=== PATIENT | male | born 1955 | race Caucasian/White ===

== ENCOUNTER 2019-10-06 05:13 | Observation (INO) | payer BC, OTHER ==
[2019-10-01 12:32] LABS: BASOPHILS % 0.7 % (0.0-1.0); EOSINOPHILS # (AUTO) 0.2 (0.0-0.4); EOSINOPHILS % 2.8 % (0.0-6.0); HEMOGLOBIN 15.3 g/dL (14.0-18.0); LYMPHOCYTES # (AUTO) 1.3 (1.0-3.2); LYMPHOCYTES % 20.6 % (18.0-39.1); MEAN CORPUSCULAR HEMOGLOBIN 31.9 pg (28-32); MEAN CORPUSCULAR HGB CONC 33.3 g/dL (31-35); MONOCYTES # (AUTO) 0.5 (0.2-0.8); MONOCYTES % 8.6 % (4.4-11.3); NEUTROPHILS # (AUTO) 4.1 (2.1-6.9); NEUTROPHILS % 67.1 % (38.7-80.0); PLATELET COUNT 250 x10e3/uL (140-360); RED BLOOD COUNT 4.79 x10e6/uL (4.3-5.7)
[2019-10-01 12:45] LABS: INR 0.86; PROTHROMBIN TIME 12.2 seconds (11.9-14.5)
[2019-10-01 12:46] LABS: PARTIAL THROMBOPLASTIN TIME 28.4 seconds (23.8-35.5)
[2019-10-01 12:52] LABS: ANION GAP 12.1 mmol/L (8-16); BLOOD UREA NITROGEN 14 mg/dL (7-26); BUN/CREATININE RATIO 15 (6-25); CALCIUM 9.4 mg/dL (8.4-10.2); CARBON DIOXIDE 27 mmol/L (22-29); CHLORIDE 105 mmol/L (98-107); CREATININE, SERUM 0.96 mg/dL (0.72-1.25); EST GLOMERULAR FILTRATION RATE > 60 ML/MIN (60-); GLUCOSE 97 mg/dL (74-118); POTASSIUM 4.1 mmol/L (3.5-5.1); SODIUM 140 mmol/L (136-145)
[~2019-10-06] VITALS: Ht 185.4 cm; Wt 75.3 kg
[~2019-10-06 05:13] MED LIST: BACITRACIN 50,000 UNIT VIAL ONE; BC POWDER PACK1 EAC1 PO; IRBESARTAN-HCT1 EACH PO; MELOXICAM15 MG PO; PROTONIX20 MG PO
[2019-10-06] MEDS ORDERED: CEFAZOLIN SOD 1 GM/NS 50ML 100 ML IV ONE ×2 (06:07→20:34)
[2019-10-06] MEDS ORDERED: ROPIVACAINE 246.25 MG, EPINEPHRINE HCL 1:1000 1ML 0.5 MG, CLONIDINE HCL 0.08 MG, KETORO... INJ ONE ×5 (08:00)
[2019-10-06] MEDS ORDERED: TRANEXAMIC ACID 1,000 MG/10 ML ML ONE (08:42)
--- NOTE | 2019-10-06 09:25 | Diagnostic Imaging Report ---
OR Fluoroscopy: IMPRESSION: Fluoroscopy service provided in the OR. Interpretation not requested. Signed by: Rigoberto Ramos MD on 10/06/2019 9:22 AM
[2019-10-06] MEDS ORDERED: FENTANYL CITRATE/PF 100MCG/2 ML INJ ONE (09:36)
[2019-10-06] MEDS ORDERED: MORPHINE SULFATE 2 MG/ML SYR 1ML ONE (09:59)
[2019-10-06] MEDS ORDERED: KETOROLAC TROMETHAMINE 30 MG/ML VIAL ONE ×2 (10:00→14:24)
[2019-10-06] MEDS ORDERED: HYDROCODONE/APAP 5MG-325MG TAB ONE ×2 (12:24→15:30)
[2019-10-06] MEDS ORDERED: ROCURONIUM BROMIDE 10 MG/ML 5ML VIAL IV ONE (14:24)
[2019-10-06] MEDS ORDERED: SEVOFLURANE INHAL SOLN 250 ML PEN BTL ONE (14:24)
[2019-10-06] MEDS ORDERED: GLYCOPYRROLATE INJ 0.2 MG/ML VIAL ONE (14:24)
[2019-10-06] MEDS ORDERED: ONDANSETRON HCL INJ 2MG/ML 2ML 2 MG/ML VIAL ONE (14:24)
[2019-10-06] MEDS ORDERED: LIDOCAINE HCL 2% LOCAL INJ 5 ML SDV VIAL INJ ONE (14:24)
[2019-10-06] MEDS ORDERED: PROPOFOL IV EMULSION 10 MG/ML 20 ML VIAL ONE (14:24)
[2019-10-06] MEDS ORDERED: NEOSTIGMINE 1 MG/ML 10ML VIAL ONE (14:24)
[2019-10-06] MEDS ORDERED: DEXAMETHASONE SOD PHOS INJ 4 MG/ML VIAL ONE (14:24)
--- NOTE | 2019-10-06 16:10 | Operative Report ---
DATE OF PROCEDURE: 10/06/2019 SURGEON: DEYA HERRERA MD LOCATION: Place of surgery is [facility]. HISTORY: Mr. Lawton is a 63-year-old male with a several year history of chronic left-sided hip pain. On initial evaluation, the patient was found to have severe end-stage degenerative joint disease of his left hip with a possibility of avascular necrosis of the left femoral head. In addition to his hip pain, the patient was also having referred lumbar radicular pain to the left lower extremity. The patient had tried conservative treatments for his left hip as well as his back to include anti-inflammatories, home therapy program, referral to pain management for URIEL and hip injections. The patient has continued with ongoing pain to the left hip which was affecting his gait and quality of life. He elected to forgo any further conservative treatment and proceed along with a left total hip arthroplasty. The patient was made well aware of the risks and benefits consisting but not limited to the following: Infection, blood loss, nerve, blood vessel or tendon injury, DVT, ongoing pain, stiffness, leg length discrepancy. He is aware of the possibility of fractures and/or hip dislocations and possible need for additional surgery. Lastly, he is also made well aware that the hip arthroplasty in itself may not resolve all of his lumbar radicular symptoms and pain resulting from that. The patient was seen and identified in the preoperative holding area. The left hip was marked by myself. The risks and benefits as noted above were conveyed to the patient once again with preop nursing staff and the patient was in agreement. Time-out was taken. Consent was confirmed with the preop nursing staff, anesthesia staff and myself. The patient was then brought back to the operative suite and the time-out was taken in the operative suite for Mr. Driss Lawton for left total hip arthroplasty. All were in agreement including operative nursing staff, anesthesia and myself. The patient was then given a successful general intubation anesthetic and then transferred over to the operative surgical table. The patient was then placed in a right lateral decubitus position with the left hip fully exposed. An axillary roll was placed underneath the right axilla and the right lower extremity, the peroneal nerve was well protected and padded throughout the entire procedure. The left hip was then sterilely prepped and draped in usual standard fashion. The initial 10-metz Jacob blade was then used to make the initial skin incisions starting at the greater trochanter and extending up proximally and posteriorly and then distally along the lateral femoral shaft. Subcutaneous bleeding was controlled using Bovie tip. A second 10-metz Jacob blade was then used to make a second deep incision into the iliotibial band along with the skin incision. A Charnley east-west retractor was placed in and the gluteus medius and minimis were identified and they were resected off the region of bony insertion and tagged for later repair. Blunt dissection was carried across the femoral head, neck and capsule. A capsulectomy was completed. Degenerative joint fluid was suctioned out and the degenerative femoral head and neck was readily identified. The hip was then carefully dislocated en bloc. The complete femoral head was identified. He had the complete cartilage loss of almost 100% of the articular surface with significant osteophyte throughout the femoral neck. An osteotomy guide was then used in position to make a resection cut of the femoral neck of approximately 1 cm above the lesser trochanter. The femoral head was removed and the femoral head was sized to approximately 54. The acetabular retractors were then placed in to allow full visualization of the entire acetabulum throughout the reaming process. C-arm fluoroscopy was then brought in, so I can also identify the entire acetabulum and sequential reaming was carried out of the acetabulum and assuring correct version rotation and internal and external rotation during the reaming process with direct visualization and secondary confirmation was C-arm fluoroscopy. The acetabulum was reamed up to a size 60 and a 60G Trident II cluster cup was impacted in. Again, upon direct visualization as well as using alignment guides, the Trident II cluster cup was impacted in the correct version. Rotation, abduction, adduction, internal and external rotation, and final position was confirmed under light C- arm fluoroscopy. The acetabulum cup was then augmented with the acetabular screws 6.5 x 26.5 x 30 both being placed between the bony aspect of the pelvis. The cup was well seated and well positioned. A temporary liner was then placed in. FEMORAL COMPONENT: Attention was then turned to the femoral side. A cookie cutter was used to remove the lateral femoral cancellous bone. Canal finder was placed in and canal lateralizer was then used and sequential broaching was carried out to a Press-Fit size 10 stem. A trial reduction was carried out using varied neck length and the neutral gave the most stable neck length allowing full complete range of motion of the hip in all planes without any subluxation or dislocation. The trial components were removed. Copious irrigation was carried out with 6 L of antibiotic saline solution. First and second final counts were found to be correct. Upon which time, a hip VAN injection was completed with 100 mL of cocktail mixture in the usual standard fashion. The final components were placed in consisting of secure Press-Fit size 10 stem with 130 degrees neck angle. A MDM liner 48 G, insert was 28 mm x 54 mm, head size was 20 mm with 0 mm neutral neck length cobalt chrome. Upon reduction of final components, the hip was placed in range of motion and upon direct visualization as well as live C- arm fluoroscopy the hip was stable in all planes and motion. There is no hip subluxation or dislocation and stable throughout. Final irrigation was carried out and final counts were found to be correct. Deep layer closure, we began reapproximating the gluteus medius and minimus, reinserting it back to the bony insertion to bony tunnels. The iliotibial was closed using 5-0 Ethibond and 0 Vicryl. The deep fascial layer was closed using 0 Vicryl and 2-0 Vicryl and skin reapproximated with marisol. The patient was then placed in the hip abduction pillow and then successfully extubated and transferred to PACU in stable condition. PREOPERATIVE DIAGNOSIS: Severe end-stable degenerative joint disease of the left hip. POSTOPERATIVE DIAGNOSES: Severe end-stable degenerative joint disease of the left hip and based on intraoperative finding high probability of avascular necrosis of the left femoral head. PROCEDURE: Left total hip arthroplasty with the following components: Trident II cluster cup size 60G, two acetabulum screws 6.5 x 20 and 6.5 x 30 mm, MDM liner was 48 mm G, insert was 28 mm x 54 mm, head size was 28 mm x 0 mm, 0 neutral neck length cobalt chrome. Left intraarticular intracapsular hip van injection. ANESTHESIA: General intubation. COMPLICATIONS: None. CONDITION: Stable to PACU. Intraoperative findings were severe degenerative joint disease of the left hip with complete articular cartilage loss of the femoral head and 80% of the acetabulum. The patient is seen in PACU. Dressing is clean and dry. Capillary refills are brisk. The patient's hip was out to length and neutral. Capillary refills are brisk. He was moving his toes. Pain is well controlled. I did try to locate his but his was not available in two waiting rooms that I checked twice. The postoperative instructions were discussed with the nursing staff. The patient is discharged on Lovenox 40 mg subcu daily beginning tomorrow morning. Dressing changes. The patient discharged home with abduction pillow, bilateral teds and incentive spirometry. The patient may shower, does not need to cover the incision about 2 to 3 days. The patient is to follow in orthopedic clinic in 2 weeks for wound check and staple removals. MD VINICIUS REEVES/SUHAS /[id number] JOSE M
[2019-10-06] MEDS ORDERED: HYDROCODONE/APAP 10MG-325MG TAB ONE (21:07)
[2019-10-06] MEDS ORDERED: CEFAZOLIN SOD 1 GM/NS 50ML 50 ML IV ONE (21:38)
[2019-10-06 21:45] VITALS: BP 120/70
[2019-10-06 22:30] VITALS: BP 120/70
--- NOTE | 2019-10-06 22:30 | NUR ---
RECEIVED TRANSFER FROM PACU. PT IS ALERT AND ORIENTED X3. RESPIRATIONS ARE REGULAR AND UNLABORED. TELE ON - SR. DRESSING TO LEFT HIP IS DRY AND INTACT. ABDUCTOR PILLOW IN PLACE. APRIL HOSE AND SCD ON BILATERALLY. PT UNABLE TO VOID AFTER SURGERY. RTAC PIV - LR AT 80 ML/HR. SITE HEALTHY. CALL LIGHT WITHIN REACH. BED IN LOW POSITION.
[2019-10-06] MEDS: LACTATED RINGER'S 1,000 ML INJ SCH (22:45)
[2019-10-06] MEDS ORDERED: HYDROMORPHONE 1MG/1ML INJ IV PRN (22:45)
[2019-10-06] MEDS ORDERED: HYDROCODONE/APAP 10MG-325MG TAB PO PRN (22:45)
[2019-10-06] MEDS ORDERED: NICOTINE 21 MG/EA PATCH TOP PRN (22:45)
[2019-10-07] VITALS: BP 116/70
[2019-10-07] MEDS: HYDROCODONE/APAP 10MG-325MG TAB PO PRN ×3 (01:13→10:47)
--- NOTE | 2019-10-07 03:31 | NUR ---
PT HAS VOIDED 100 AND 275 OF URINE. URINE IS CLEAR YELLOW IN COLOR.WILL CONTINUE TO MONITOR.
[2019-10-07 04:00] VITALS: BP 116/60
[2019-10-07] MEDS: CEFAZOLIN SOD 1 GM/NS 50ML 50 ML IV SCH ×2 (05:54→14:00)
[2019-10-07] MEDS ORDERED: ENOXAPARIN SOD INJ 40 MG/0.4 ML SYR SC SCH (07:00)
[2019-10-07 07:48] VITALS: BP 103/68
[2019-10-07] MEDS ORDERED: PANTOPRAZOLE SOD 40 MG TABEC PO SCH (08:00)
[2019-10-07 08:25] VITALS: BP 103/68
[2019-10-07] MEDS: LACTATED RINGER'S 1,000 ML INJ SCH (11:15)
[2019-10-07] MEDS ORDERED: NORCO 10-325 T1 EACH PO (11:31)
[2019-10-07] MEDS ORDERED: LOVENOX40 MG/0.4 SC (11:32)
[2019-10-07] MEDS ORDERED: KEFLEX500 MG PO (11:36)
[2019-10-07 12:11] VITALS: BP 118/73
--- OUTSIDE RECORDS SUMMARY | 2019-10-16 14:38 | XMS REPORT | Clinical Summary ---
Author Author [facility] Organization [facility] Address Unknown Phone Unavailable Care Team Providers Care Manager Summer Name Role Phone Jh Reece MD PCP Allergies Not on File Medications End Date Status Medication Sig Dispensed Refills Start Date Active sodium,potassium,mag Use as 2 Bottle 0 01/01 sulfates (SUPREP BOWEL directed 8 PREP KIT) 17.5-3.13-1.6 gram recon soln Active pantoprazole (PROTONIX) Take 1 tablet 90 tablet 2 40 MG EC tablet (40 mg total) 0 by mouth daily. 10/27/2018 Discontinued (Reorder) esomeprazole (NexIUM) 40 TAKE 1 90 capsule 1 0 MG capsule CAPSULE DAILY 9 BEFORE BREAKFAST 05/06/2019 Discontinued esomeprazole (NexIUM) 40 TAKE 1 90 capsule 1 0 201 MG capsule CAPSULE DAILY 9 BEFORE BREAKFAST 08/18/2019 Discontinued (Reorder) esomeprazole (NexIUM) 40 TAKE 1 90 capsule 4 0 MG capsule CAPSULE DAILY 0 BEFORE BREAKFAST 08/20/2019 Discontinued (Reorder) esomeprazole (NexIUM) 40 TAKE 1 90 capsule 1 0 MG capsule CAPSULE DAILY 0 BEFORE BREAKFAST 09/04/2019 Discontinued esomeprazole (NexIUM) 40 TAKE 1 90 capsule 1 0 202 MG capsule CAPSULE DAILY 0 BEFORE BREAKFAST Active Problems Not on file Encounters Care Team Description Date Type Specialty Makayla Reynoso MA 09/04/2019 Telephone Gastroenterology Makayla Reynoso MA 08/26/2019 Telephone Gastroenterology Makayla Reynoso MA 08/20/2019 Orders Only Gastroenterology Makayla Reynoso MA 08/18/2019 Telephone Gastroenterology Emmanuel Marsh MD 05/05/2019 Refill Gastroenterology Emmanuel Marsh MD 10/27/2018 Refill Gastroenterology after 10/05/2018 Social History Date Tobacco Use Types Packs/Day Years Used Never Assessed Sex Assigned at Date Recorded Not on file Industry Job Start Date Occupation Not on file Not on file Not on file Travel End Travel History Travel Start No recent travel history available. 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
--- OUTSIDE RECORDS SUMMARY | 2019-10-16 14:38 | XMS REPORT | Continuity of Care Document ---
Author Author Suhail Howard [employer]B [employer] MAHSA Townsend Organization [employer] Address Unknown Phone Unavailable Care Team Providers Care Director Voice Name Role Phone [facility] Unavailable Un available Problems Problem Status Onset Date Classification Date Reported Comments Source LT THR:10/06/19 Active 2019 [facility] CERVICAL SPONDYLOSIS, CERVICAL SPINAL ST Active 08/17/2016 [facility] UNK Active 0 07/12/2016 [facility] M54.12 - "RADICULOPATHY, CERVICAL REGION Active 06/11/2016 BOAZ Harviell Non-neoplastic nevus (disorder) Active 12/05/2013 Problem 09/20/2019 Data migrated from [employer] on 08/14. Medical GroupKarl, Constantino ast, BOAZ Gerberland,[facility] NEVUS, NON-NEOPLASTIC Active 12/05/2013 Condition 10/27/2014 Medical Group Hereditary hemochromatosis (disorder) Active 03/18/1958 Problem 09/20/2019 Data migrated from [employer] on 08/14. Medical GroupKarl, Southe ast, [facility] HEREDITARY HEMOCHROMATOSIS Act rio 03/18/1958 Condition 10/27/2014 Medical Group Arthritis (disorder) Active Problem 09/20/2019 Data migrated from [employer] on 08/14/14. Medical GroupKarl Neuro,[facility], BOAZ Gerberland,[facility] Lockwood's esophagus (disorder) Resolved Problem 07/2019 Data migrated from [employer] on 08/14. Medical GroupKarl Neuro, Southe ast, GUILLERMINAD [facility] Benign hypertension (disorder) Resolved Problem 07/2019 Data migrated from [employer] on 08/14. Medical GroupKarl, Constantino ast, BOAZ Barrios,[facility] Gastroesophageal reflux disease (disorder) Active Problem 09/20/2019 Data migrated from [facility] on 08/14. Medical Group,Karl Neuro, Constantino ast, OPID Harviell,[facility] History of - blood disorder (context-dep endent category) Resolved Pr oblem 09/20/2019 Data migrated from [facility] on 10/02/14. Medical Group,Karl Neuro, Constantino ast, OPID Harviell,[facility] Hypertensive disorder, systemic arterial (disorder) Active Problem 09/20/2019 Medical Group,Karl Neuro, [place], OPID Harviell,[facility] Lactocele (disorder) Active Problem 09/20/2019 Medical Group,Karl Russell ro, [place], OPID Harviell,[facility] Smoker (finding) Active Problem 09/20/2019 Medical GroupKarl ro, [place], OPID Harviell,[facility] Spinal stenosis in cervical region (disorder) Active Problem 09/20/2019 Medical Group,Karl Neuro, [place], OPID Harviell,[facility] HTN Active Condition 10/27/2014 Medical Group GERD Active Condition 10/27/2014 Medical Group BARRETTS ESOPHAGUS Active Condition 10/27/2014 Medical Group ARTHRITIS Active Condition 10/27/2014 Medical Group SPINAL STENOSIS, CERVICAL REGION Active [facility] Medications Medication Details Route Status Patient Instructions Ordering Provider Order Date Source pantoprazole 40 mg oral enteric coated tablet 0 Refill(s) Active 09/14/2019 Medical Group Esomeprazole 40 MG Enteric Coated Capsule [Nexium] 40 mg = 1 cap, PO, Daily, # 90 cap, 1 Refill(s), Pharmacy: [facility][id number] Active 08/11/2019 Medical Group Hydrochlorothiazide 12.5 MG / irbesartan 150 MG Oral Tablet 1 tab, PO, Daily, DUE FOR APPOINTMENT., # 90 tab, 1 Refill(s), Pharmacy: [facility] #[id number] Active 08/11/2019 [facility] Hydrochlorothiazide 12.5 MG / irbesartan 150 MG Oral Tablet = 1 tab, PO, Daily, # 90 tab, DUE FOR AP POINTMENT., Pharmacy: [facility] Active 02/05/2019 Medical Group Hydrochlorothiazide 12.5 MG / irbesartan 150 MG Oral Tablet = 1 tab, PO, Daily, # 90 tab, Refill(s) 1, Pharmacy: [facility] Active 02/07/2018 Medical Group Hydrochlorothiazide 12.5 MG / irbesartan 150 MG Oral Tablet See Instructions, # 90 tab, TAKE 1 TABLE T DAILY, Pharmacy: [facility] No Longer Active 11/08/2017 Medical Group Hydrochlorothiazide 12.5 MG / irbesartan 150 MG Oral Tablet See Instructions, # 90 tab, Refill(s) 1, TAKE 1 TABLET DAILY, Pharmacy: [facility] Active 05/13/2017 Medical Group Hydrochlorothiazide 12.5 MG / irbesartan 150 MG Oral Tablet See Instructions, # 90 tab, TAKE 1 TABLE T DAILY, Pharmacy: [facility] Active 02/11/2017 Medical Group remove patch Notes: Remove old patch before application of new patch. WASTE: F/P - P Waste Black; E - P Waste Black Inactive 08/02/2016 [facility] hydrochlorothiazide 25 mg oral tablet Notes: (Same as: Hydrodiuril) With food. Inactive 08/02/2016 [facility] Senokot Notes: (Same as: Senok ot) Inactive 08/02/2016 [facility] Avapro Notes: (Same as:Avapro) Inactive 08/02/2016 [facility] Hydrochlorothiazide 12.5 MG / irbesartan 150 MG Oral Tablet [Avalide 150/12.5] 1 tab, Route: PO, Drug Form: TAB, Dosing Weight 76.364, kg, Daily, Start date: 08/02/16 9:00:00 CDT, Duration: 30 day, Stop date: 08/31/16 9:00:00 CDT No Longer Active 08/02/2016 [facility] heparin sodium, porcine 2500 UNT/ML Injectable Solutio n Notes: porcine heparin Inactiv e 08/02/2016 [facility] 24 HR Nicotine 0.875 MG/HR Transdermal P atch [Nicoderm C-Q] = 1 patch, TOP, Daily, X 28 day, # 28 pa tch, 0 Refill(s) Active 08/02/2016 [facility] Acetaminophen 325 MG / Hydrocodone Annabelle trate 10 MG Oral Tablet [[place] 10/325] 1 tab, PO, Q4H, PRN Pain Score 1-3, # 60 tab, 0 Refill(s), given to patient Active 08/02/2016 [facility] Acetaminophen 325 MG / Hydrocodone Annabelle trate 10 MG Oral Tablet [[place] 10/325] Notes: Do not exceed 4gm/day of acetamin ophen. (Same as: [place] 325/10) Inactive 08/02/2016 [facility] Famotidine 20 MG Oral Tablet [Pepcid] Notes: (Same as: Pepcid) No Longer Active 08/02/2016 [facility] Nicotine Notes: (Same as: Bryce mello) "Remove old patch before application of new patch" WASTE: F/P - P Waste Black; E - P Waste Black No Longer Active 08/01/2016 [facility] Docusate Sodium 100 MG Oral Capsule [Colace] Notes: (Same as: Colace) (Do Not Crush) No Longer Active 08/01/2016 [facility] Cefazolin 1 gm, 100 mL, Route: IVPB, Drug form: INJ, Q8H, Dosing Weight 76.364, kg, Start date: 08/01/16 16:00:00 CDT, Duration: 3 doses or times, Stop date: 08/02/16 8:00:00 CDT No Longer Active 08/01/2016 [facility] Fentanyl 50 microgram, Route: IVP, ONCE, Dosing Weight 76.364, kg, Start date: 08/01/16 11:48:00 CDT, Stop date: 08/01/16 11:48:00 CDT Inactive 08/01/2016 [facility] Ondansetron 4 mg, Route: IVP, ONCE, Dosing Weight 76.364, kg, PRN Nausea & Vomiting, Start date: 08/01/16 11:25:00 CDT Inactive 08/01/2016 [facility] Morphine 2 mg, Route: IVP, Q5M in, Dosing Weight 76.364, kg, PRN Pain Score 4-6, Start date: 08/01/16 11:25:00 CDT, Duration: 5 doses or times, Stop date: Limited # of times Inactive 08/01/2016 [facility] Naloxone 0.4 mg, Route: IVP, Q 2MIN, Dosing Weight 76.364, kg, PRN Narcotic Reversal, Start date: 08/01/16 11:25:00 CDT, Duration: 8 doses or times, Stop date: Limited # of times Inactive 08/01/2016 [facility] Hydralazine 10 mg, Route: IVP, Q20Min, Dosing Weight 76.364, kg, PRN Elevated BP, Start date: 08/01/16 11:25:00 CDT, Duration: 2 doses or times, Stop date: Limited # of times Inactive 08/01/2016 [facility] Labetalol 10 mg, Route: IVP, Q 5Min, Dosing Weight 76.364, kg, PRN Elevated BP, Start date: 08/01/16 11:25:00 CDT, Duration: 5 doses or times, Stop date: Limited # of times Inactive 08/01/2016 [facility] Flumazenil 0.2 mg, Route: IVP, PRN, Dosing Weight 76.364, kg, PRN Benzodiazepine Reversal, Initial dose, Start date: 08/01/16 11:25:00 CDT, Duration: 30 day, Stop date: 08/31/16 11:24:00 CDT Inactive 08/01/2016 [facility] Hydromorphone 0.5 mg, Route: I SUPERVISOR RESIDENTIAL, Q5Min, Dosing Weight 76.364, kg, PRN Pain Score 7-10, Start date: 08/01/16 11:25:00 CDT, Duration: 4 doses or times, Stop date: Limited # of times Inactive 08/01/2016 [facility] magnesium citrate Notes: (Same as: Citrate of Magnesia) Concentration: 1.745 gm / 30 mL No Longer Active 08/01/2016 [facility] Zofran Notes: (Same as: Zofran ) MEDICATION WASTE Product Size: 4 mg Product Wasted: ___ mg No Longer Active 08/01/2016 [facility] Acetaminophen 325 MG / Hydrocodone Annabelle trate 5 MG Oral Tablet Notes: (Same as: [place] 325/5) Do not ex ceed 4gm/day of acetaminophen. No Longer Active 08/01/2016 [facility] Dilaudid 1 mg, 1 mL, Route: IV , Drug form: INJ, Q3H, Dosing Weight 76.364, kg, PRN Pain Score 7-10, Start date: 08/01/16 11:14:00 CDT, Duration: 30 day, Stop date: 08/31/16 11:13:00 CDT No Longer Active 08/01/2016 [facility] Tylenol Notes: Do not exceed 4 gm/day. (Same as: Tylenol) No Longer Active 08/01/2016 [facility] Sodium Chloride 0.154 MEQ/ML Injectable Solution 1,000 mL, Rate: 75 ml/hr, Infuse over: 13.3 hr, Route: IV, Dosing Weight 76.364 kg, Total Volume: 1,000, Start date: 08/01/16 11:14:00 CDT, Duration: 30 day, Stop date: 08/31/16 11:13:00 CDT No Longer Active 08/01/2016 [facility] rocuronium (ANES) Route: IV, D rug form: INJ, ONCE, Stop date: 08/01/16 8:46:00 CDT Inactive 08/01/2016 [facility] propofol (ANES) Route: IV, Antolin g form: INJ, ONCE, Stop date: 08/01/16 8:46:00 CDT Inactive 08/01/2016 [facility] ePHEDrine (ANES) Route: IV, Dr ug form: INJ, ONCE, Stop date: 08/01/16 8:46:00 CDT Inactive 08/01/2016 [facility] midazolam (ANES) Route: IV, Dr ug form: SOLN, ONCE, Stop date: 08/01/16 8:46:00 CDT Inactive 08/01/2016 [facility] ondansetron (ANES) Route: IV, Drug form: INJ, ONCE, Stop date: 08/01/16 8:46:00 CDT Inactive 08/01/2016 [facility] dexamethasone (ANES) Route: IV , Drug form: INJ, ONCE, Stop date: 08/01/16 8:46:00 CDT Inactive 08/01/2016 [facility] fentaNYL (ANES) Route: IV, Antolin g form: INJ, ONCE, Stop date: 08/01/16 8:46:00 CDT Inactive 08/01/2016 [facility] lidocaine (ANES) Route: IV, Dr ug form: INJ, ONCE, Stop date: 08/01/16 8:46:00 CDT Inactive 08/01/2016 [facility] acetaminophen (ANES) (ANES) [place]: IV, Drug form: INJ, Start date: 08/01/16 8:21:00 CDT, Stop date: 08/01/16 9:21:00 CDT Inactive 08/01/2016 [facility] ceFAZolin (ANES) (ANES) Route: IV, Drug form: INJ, Start date: 08/01/16 8:11:00 CDT, Stop date: 08/01/16 9:11:00 CDT Inactive 08/01/2016 [facility] Calcium Chloride 0.0014 MEQ/ML / Potassi um Chloride 0.004 MEQ/ML / Sodium Chloride 0.103 MEQ/ML / Sodium Lactate 0.028 MEQ/ML Injectable Solution 1,000 mL, Rate: 25 ml/hr, Infuse over: 4 0 hr, Route: IV, Dosing Weight 76.364 kg, Total Volume: 1,000, Start date: 08/01/16 7:41:00 CDT, Duration: 30 day, Stop date: 08/31/16 7:40:00 CDT Inactive 08/01/2016 [facility] LR 1000 mL INJ (ANES) Route: I V, Total Volume: 1,000, Start date: 08/01/16 7:39:00 CDT, Stop date: 08/01/16 8:39:00 CDT Inactive 08/01/2016 [facility] Esomeprazole 40 MG Enteric Coated Capsule [Nexium] 40 mg = 1 cap, PO, Daily, # 30 cap, 0 Refill(s) Active 07/25/2016 [facility] MOBIC 7.5 MG TABS Take one tab let by mouth once daily as needed Active 12/05/2013 [facility] NEXIUM 20 MG CPDR Take one tab let by mouth once daily as needed Active 12/05/2013 Medical [facility] BC FAST PAIN RELIEF 845-65 MG PACK Ingest one pack once daily as needed Active 12/05/2013 [facility] NEXIUM 20 MG CPDR Take one tab let by mouth once daily as needed Active 12/05/2013 [facility] AVALIDE 150-12.5 MG TABS Take 1 po daily Active 11/24/2012 [facility] AVALIDE 150-12.5 MG TABS Take 1 po daily Active 11/24/2012 Medical [facility] Allergies, Adverse Reactions, Alerts Substance Category Reaction Severity Reaction type Status Date Reported Comments Source angiotensin converting enzyme inhibitors<sup>1</sup> Assertion Drug allergy Active Data migrated from [employer] on 10/14. Originally documented as [facility] [employer]. [facility] [employer] Drug allergy [facility] [facility] Immunizations Immunization Date Given Site Status Last Updated Comments Source diphtheria/pertussis, acel/tetanus adult<sup>1</sup> 12/05/2013 Right Deltoid completed GE Result Comment: boostrix [[id number]]. Migrated from OBS ; Data migrated from [employer] on 04/19/2015. Medical Group,Count [facility] Hx influenza vaccine-unspecified<sup>2</sup> 01/02/2012 completed GE Result Comment: fluvax. Gigi rated from OBS ; Data migrated from [employer] on 04/19/2015. Medical Group,Karl [facility], BOAZ Harviell,[facility] influenza immunization (Flu Vax) has been administered 01/02/2012 completed [facility] influenza immunization (Flu Vax) has been administered 01/02/2012 completed [facility] dT (Diphtheria and Tetanus) booster given 09/12/2004 completed [facility] tetanus-diphtheria toxoids<sup>3</sup> 09/12/2004 completed G E Result Comment: td. Migrated from OBS ; Data migrated from [employer] on 04/19/2015. Medical Group,Karl Neuro,[facility] dT (Diphtheria and Tetanus) immunization for children, #1 09/12/2004 completed Medical [facility] Results Order Name Results Value Reference Range Date Interpretation Comments Source CHEM PANEL Glucose Lvl 88 65 - 99 09/14/2019 Result Comment:
Fasting reference interval

Lab test performed by:
[facility]
[address]
[place] [address]
Julio [facility] CHEM PANEL BUN 10 7 - 25 09/14/2019 [facility] CHEM PANEL Creatinine Lvl 0.76 0.70 - 1.25 09/14/2019 Result Comment: For patients >49 years o f age, the reference limit
for Creatinine is approximately 13% higher for people
identified as -[place]. Medical [facility] CHEM PANEL eGFR NON-AFR. LATVIAN 98 > OR = 60 mL/min/1.73m2 2019 [facility] CHEM PANEL eGFR 113 > OR = 60 mL/min/1.73m2 2019 [facility] CHEM PANEL B/C Ratio NOT A PPLICABLE 6 - 22 09/14/2019 [facility] CHEM PANEL Sodium Lvl 140 135 - 146 09/14/2019 [facility] CHEM PANEL Potassium Lvl 4.0 3.5 - 5.3 09/14/2019 [facility] CHEM PANEL Chloride Lvl 105 98 - 110 09/14/2019 [facility] CHEM PANEL CO2 26 20 - 32 09/14/2019 [facility] CHEM PANEL Calcium Lvl 9.5 8.6 - 10.3 09/14/2019 [facility] CHEM PANEL Total Protein 6.5 6.1 - 8.1 09/14/2019 [facility] CHEM PANEL Albumin Lvl 4.1 3.6 - 5.1 09/14/2019 [facility] CHEM PANEL Globulin 2.4 1.9 - 3.7 09/14/2019 [facility] CHEM PANEL A/G Ratio 1.7 1.0 - 2.5 09/14/2019 [facility] CHEM PANEL Bili Total 1.0 0.2 - 1.2 09/14/2019 [facility] CHEM PANEL Alk Phos 88 35 - 144 09/14/2019 [facility] CHEM PANEL ASPARTATE TRANSAMINASE 20 10 - 35 09/14/2019 [facility] CHEM PANEL ALANINE AMINOTRANSFERASE 16 9 - 46 09/14/2019 [facility] HEMATOLOGY WBC X 10x3 6.5 3.8 - 10.8 09/14/2019 Result Comment:
Lab test perf ormed by:
[facility]
[address]
[place] [address]
Julio Gaston [facility] HEMATOLOGY RBC X 10x6 4.70 4.20 - 5.80 09/14/2019 [facility] HEMATOLOGY Hgb 15.3 13.2 - 17.1 09/14/2019 [facility] HEMATOLOGY Hct 46.0 38.5 - 50.0 09/14/2019 [facility] HEMATOLOGY MCV 97.9 80.0 - 100.0 09/14/2019 [facility] HEMATOLOGY MCH 32.6 27.0 - 33.0 09/14/2019 [facility] HEMATOLOGY MCHC 33.3 32.0 - 36.0 09/14/2019 [facility] HEMATOLOGY RDW 11.9 11.0 - 15.0 09/14/2019 [facility] HEMATOLOGY Platelet 256 140 - 400 09/14/2019 [facility] HEMATOLOGY MPV 10.9 7.5 - 12.5 09/14/2019 [facility] HEMATOLOGY Neutrophils # 4446 1500 - 7800 09/14/2019 [facility] HEMATOLOGY Lymphocytes # 1417 850 - 3900 09/14/2019 [facility] HEMATOLOGY Monocytes # 488 200 - 950 09/14/2019 [facility] HEMATOLOGY Eosinophils # 130 15 - 500 09/14/2019 [facility] HEMATOLOGY Basophils # 20 0 - 200 09/14/2019 [facility] HEMATOLOGY Segs 68.4 09/14/2019 [facility] HEMATOLOGY Lymphocytes 21.8 09/14/2019 [facility] HEMATOLOGY Monocytes 7.5 09/14/2019 [facility] HEMATOLOGY Eosinophils 2.0 09/14/2019 [facility] HEMATOLOGY Basophils 0.3 09/14/2019 [facility] HEMATOLOGY INR 1.0 09/14/2019 Result Comment: Reference Range 0.9-1.1
Moderate-intensity Warfarin Therapy 2.0-3.0
Higher-intensity Warfarin Therapy 3.0-4.0

Lab test performed by:
[facility]
[address] [place] [address]
[place] [address]
Julio Gaston [facility] HEMATOLOGY PROTIME 9.9 9.0 - 11.5 09/14/2019 Result Comment:
For more informati on on this test, go to:
http://education.WhoJam/faq/EIV862 [facility] HEMATOLOGY aPTT 31 22 - 34 09/14/2019 Result Comment:
This test has not been validated for monitoring
unfractionated heparin therapy. For testing that
is validated for this type of therapy, please refer
to the Heparin Anti-Xa assay (test code 68028).

For additional information, please refer to
http://education.[employer]/faq/PRB629
(This link is being provided for
informational/educational purposes only.)

Lab test performed by:
[facility]
[address] [place] [address]
[place] [address]
Julio Gaston [facility] URINE AND STOOL UA Color YELLOW YELLOW 09/14/2019 Result Comment:
Lab test perf ormed by:
[facility]
[address] [place] [address]
[place] [address]
Julio aGston [facility] URINE AND STOOL UA Turbidity CLEAR CLEAR 09/14/2019 [facility] URINE AND STOOL UA Spec Grav 1.007 1.001 - 1.035 09/14/2019 [facility] URINE AND STOOL UA pH 6.5 5.0 - 8.0 09/14/2019 [facility] URINE AND STOOL UA Glucose NEGATIVE NEGATIVE 09/14/2019 [facility] URINE AND STOOL UA Bili NEGATIVE NEGATIVE 09/14/2019 [facility] URINE AND STOOL UA Ketones NEGATIVE NEGATIVE 09/14/2019 [facility] URINE AND STOOL UA Blood NEGATIVE NEGATIVE 09/14/2019 [facility] URINE AND STOOL UA Protein NEGATIVE NEGATIVE 09/14/2019 [facility] URINE AND STOOL UA Nitrite NEGATIVE NEGATIVE 09/14/2019 [facility] URINE AND STOOL UA Leuk Est NEGATIVE NEGATIVE 09/14/2019 [facility] URINE AND STOOL UA WBC NONE SEEN < OR = 5 09/14/2019 [facility] URINE AND STOOL UA RBC NONE SEEN < OR = 2 09/14/2019 [facility] URINE AND STOOL UA Sq Epi NONE SEEN < OR = 5 09/14/2019 [facility] URINE AND STOOL UA Bacteria NONE SEEN NONE SEEN 09/14/2019 [facility] URINE AND STOOL UA Hyal Cast NONE SEEN NONE SEEN 09/14/2019 [facility] URINE AND STOOL Result 3 (Urine Cult ure) NO CULTURE INDICATED 09/14/2019 [facility] BLOOD BANK RESULTS ABO/Rh O POS 07/25/2016 [facility] BLOOD BANK RESULTS Antibody Scrn Negative (07/25/16 7:39 AM) 07/25/2016 [facility] CHEM PANEL ALT 29 0 - 65 07/25/2016 [facility] CHEM PANEL Albumin Lvl 3.8 3.5 - 5.0 07/25/2016 [facility] CHEM PANEL Alk Phos 107 39 - 136 07/25/2016 [facility] CHEM PANEL AST 29 0 - 37 07/25/2016 [facility] CHEM PANEL Bili Total 0.7 0.2 - 1.3 07/25/2016 [facility] CHEM PANEL Sodium Lvl 138 135 - 145 07/25/2016 [facility] CHEM PANEL Total Protein 7.0 6.4 - 8.4 07/25/2016 [facility] CHEM PANEL Calcium Lvl 8.8 8.5 - 10.5 07/25/2016 [facility] CHEM PANEL Chloride Lvl 103 95 - 109 07/25/2016 [facility] CHEM PANEL Potassium Lvl 3.9 3.5 - 5.1 07/25/2016 [facility] CHEM PANEL CO2 26 24 - 32 07/25/2016 [facility] CHEM PANEL eGFR 95 07/25/2016 Result Comment: The eGFR is calculated using the CKD-EPI formula. In most young, healthy individuals the eGFR will be >90 mL/min/1.73m2. The eGFR declines with age. An eGFR of 60-89 may be normal in some populations, particularly the elderly, for whom the CKD-EPI formula has not been extensively validated. Use of the eGFR is not recommended in the following populations:

Individuals with unstable creatinine concentrations, including patients and those with serious co-morbid conditions.

Patients with extremes in muscle mass or diet.

The data above are obtained from the National Kidney Disease Education Program (NKDEP) which additionally recommends that when the eGFR is used in patients with extremes of body mass index for purposes of drug dosing, the eGFR should be multiplied by the estimated BMI. [facility] CHEM PANEL BUN 18 7 - 22 07/25/2016 [facility] CHEM PANEL Creatinine Lvl 0.86 0.50 - 1.40 07/25/2016 [facility] CHEM PANEL Glucose Lvl 101 70 - 99 07/25/2016 [facility] CHEM PANEL AGAP 12.9 10.0 - 20.0 07/25/2016 [facility] CHEM PANEL Globulin 3.2 2.7 - 4.2 07/25/2016 [facility] CHEM PANEL B/C Ratio 21 6 - 25 07/25/2016 [facility] CHEM PANEL A/G Ratio 1.2 0.7 - 1.6 07/25/2016 [facility] HEMATOLOGY PTT 28.7 22.9 - 35.8 07/25/2016 [facility] HEMATOLOGY PT 12.8 12.0 - 14.7 07/25/2016 [facility] HEMATOLOGY INR 0.94 0.85 - 1.17 07/25/2016 [facility] HEMATOLOGY Hct 45.6 42.0 - 54.0 07/25/2016 [facility] HEMATOLOGY WBC 8.1 3.7 - 10.4 07/25/2016 [facility] HEMATOLOGY Hgb 15.8 14.0 - 18.0 07/25/2016 [facility] HEMATOLOGY RBC 4.82 4.70 - 6.10 07/25/2016 [facility] HEMATOLOGY MCV 94.6 80.0 - 94.0 07/25/2016 [facility] HEMATOLOGY MPV 9.3 7.4 - 10.4 07/25/2016 [facility] HEMATOLOGY MCHC 34.6 32.0 - 36.0 07/25/2016 [facility] HEMATOLOGY Platelet 232 133 - 450 07/25/2016 [facility] HEMATOLOGY RDW 12.7 11.5 - 14.5 07/25/2016 [facility] MCH 32.7 27.0 - 31.0 07/25/2016 [facility] HEMATOLOGY Basophils # 0.1 0.0 - 0.2 07/25/2016 [facility] HEMATOLOGY Monocytes # 0.7 0.0 - 0.8 07/25/2016 [facility] HEMATOLOGY Eosinophils 1.4 0.0 - 4.0 07/25/2016 [facility] HEMATOLOGY Lymphocytes # 1.1 1.0 - 5.5 07/25/2016 [facility] HEMATOLOGY Basophils 0.6 0.0 - 1.0 07/25/2016 [facility] HEMATOLOGY Eosinophils # 0.1 0.0 - 0.5 07/25/2016 [facility] [facility] HEMATOLOGY Segs-Bands # 6.2 1.5 - 8.1 07/25/2016 [facility] HEMATOLOGY Segs 76.5 45.0 - 75.0 07/25/2016 [facility] HEMATOLOGY Monocytes 8.3 2.0 - 12.0 07/25/2016 [facility] HEMATOLOGY Lymphocytes 13.2 20.0 - 40.0 07/25/2016 [facility] SODIUM 139 MEQ/L 135 - 145 10/28/2014 [facility] POTASSIUM 3.8 MEQ/L 3.5 - 5.1 10/28/2014 [facility] CREATININE 0.8 0.5 - 1.4 10/28/2014 [facility] BUN 20 7 - 22 10/28/2014 [facility] BUN/CREAT 25 6 - 25 10/28/2014 [facility] ALBUMIN 4.0 3.5 - 5.0 10/28/2014 [facility] CALCIUM 8.5 8.5 - 10.5 10/28/2014 [facility] SGPT (ALT) 33 0 - 65 10/28/2014 [facility] SGOT (AST) 37 0 - 37 10/28/2014 [facility] ALK PHOS 101 39 - 136 10/28/2014 [facility] IRON 239 45 - 160 10/28/2014 [facility] TIBC 293 228 - 428 10/28/2014 [facility] FERRITIN 27 22 - 275 10/28/2014 [facility] H[facility]ology HGB 14.4 14.0 - 18.0 10/28/2014 [facility] H[facility] HCT 42.5 42.0 - 54.0 10/28/2014 [facility] H[facility]ology PLATELETS 221 K/CMM 133 - 450 10/28/2014 [facility] HGBA1C 5.3 - 5.6 12/05/2013 [facility] CHOLESTEROL 180 - 199 12/05/2013 [facility] TRIGLYCERIDE 51 - 149 12/05/2013 [facility] HGBA1C 5.3 - 5.6 12/05/2013 [facility] CHOLESTEROL 180 - 199 12/05/2013 [facility] TRIGLYCERIDE 51 - 149 12/05/2013 [facility] HDL 87 >=61 12/05/2013 [facility] LDL 83 - 99 12/05/2013 [facility] SODIUM 138 MEQ/L 135 - 145 12/05/2013 [facility] POTASSIUM 4.1 MEQ/L 3.5 - 5.1 12/05/2013 [facility] CREATININE 0.9 0.5 - 1.4 12/05/2013 [facility] BUN 15 7 - 22 12/05/2013 [facility] BUN/CREAT 17 6 - 25 12/05/2013 [facility] Chemistry ALBUMIN 3.9 3.5 - 5.0 12/05/2013 [facility] Chemistry CALCIUM 8.9 8.5 - 10.5 12/05/2013 [facility] Chemistry SGPT (ALT) 29 0 - 65 12/05/2013 [facility] Chemistry SGOT (AST) 31 0 - 37 12/05/2013 [facility] Chemistry ALK PHOS 96 39 - 136 12/05/2013 [facility] Chemistry FERRITIN 35 22 - 275 12/05/2013 [facility] Chemistry IRON 174 45 - 160 12/05/2013 [facility] Hematology HGB 15.6 14.0 - 18.0 12/05/2013 [facility] Hematology HCT 46.3 42.0 - 54.0 12/05/2013 [facility] Hematology PLATELETS 211 K/CMM 133 - 450 12/05/2013 [facility] Urinalysis UA COLOR Colorless 12/05/2013 [facility] Urinalysis UA COLOR Colorless 12/05/2013 [facility] Pathology Reports No Data Provided for This Section Diagnostic Reports Report Value Date Source Ankle 2 views bilateral DX PRO CEDURE INFORMATION: Exam: XR Right Ankle Exam date and time: 08/07/2019 9:09 AM Age: 63 years old Clinical indication: Pain in unspecified joint; Additional info: /m25.50 pain in unspecified joint TECHNIQUE: Imaging protocol: XR Right ankle. Views: 1 or 2 views. AP and Lateral COMPARISON: No relevant prior studies available. FINDINGS: Bones/joints: Normal. No fracture, dislocation, or acute change. The ankle mortise is intact. Soft tissues: There is no soft tissue swelling. There are no radiopaque foreign bodies. Notes: If there is further concern, recommend follow-up radiographs or MRI for complete assessment. PROCEDURE INFORMATION: Exam: XR Left Ankle Exam date and time: 08/07/2019 9:09 AM Age: 63 years old Clinical indication: Pain in unspecified joint; Additional info: /m25.50 pain in unspecified joint TECHNIQUE: Imaging protocol: XR Left ankle. Views: 1 or 2 views. AP and Lateral COMPARISON: No relevant prior studies available. FINDINGS: Bones/joints: Normal. No fracture, dislocation, or acute change. The ankle mortise is intact. Soft tissues: There is no soft tissue swelling. There are no radiopaque foreign bodies. Notes: If there is further concern, recommend follow-up radiographs or MRI for complete assessment. IMPRESSION: XR Right Ankle Negative right ankle. XR Left Ankle Negative left ankle. Phill Hanna MD On 08/07/2019 09:58:27; [id number] 08/07/2019 [facility] Chest 2 views DX PROCEDURE INF ORMATION: Exam: XR Chest, 2 Views Exam date and time: 08/07/2019 9:21 AM Age: 63 years old Clinical indication: Pain in unspecified joint; Additional info: /m25.50 pain in unspecified joint TECHNIQUE: Imaging protocol: XR of the chest Views: 2 views. PA and Lateral COMPARISON: No relevant prior studies available. FINDINGS: Lungs: There are normal lung volumes without consolidation or interstitial oppacities. Bibasilar atelectasis. Pleural space: Unremarkable. No pleural effusion. No pneumothorax. Heart/Mediastinum: The heart size is normal. The pulmonary vasculature is normal. The mediastinal contour is normal. The trachea is midline. Bones/joints: No acute abnormality seen. IMPRESSION: No acute cardiopulmonary findings Cleve Tong MD On 08/07/2019 11:10:09; [id number] 08/07/2019 [facility] Hand 2 views Bilateral DX PROC EDURE INFORMATION: Exam: XR Right Hand Exam date and time: 08/07/2019 9:07 AM Age: 63 years old Clinical indication: Pain in unspecified joint; Additional info: /m25.50 pain in unspecified jointq TECHNIQUE: Imaging protocol: XR Right hand. Views: 1 or 2 views. Frontal Lateral COMPARISON: No relevant prior studies available. FINDINGS: PA and lateral images. No acute osseous abnormality. Minor degenerative changes radiocarpal articulation and moderate degenerative changes triscaphe articulation. Hypertrophic degenerative changes index and long finger metacarpophalangeal joints. Moderate hypertrophic changes thumb interphalangeal joint and index finger distal interphalangeal joint. No erosion. IMPRESSION: Degenerative changes as described. PROCEDURE INFORMATION: Exam: XR Left Hand Exam date and time: 08/07/2019 9:07 AM Age: 63 years old Clinical indication: Pain in unspecified joint; Additional info: /m25.50 pain in unspecified jointq TECHNIQUE: Imaging protocol: XR Left hand. Views: 1 or 2 views. Frontal Lateral COMPARISON: No relevant prior studies available. FINDINGS: PA and lateral images. Minor degenerative changes radiocarpal articulation. Severe degenerative changes triscaphe articulation with subchondral cysts. Degenerative changes thumb, index and long finger metacarpophalangeal joints, most severely involving the long finger. Extensive hypertrophic degenerative changes thumb interphalangeal joint and minor hypertrophic degenerative changes index and long finger proximal interphalangeal joints and index finger distal interphalangeal joint. Small radiopaque foreign object adjacent to ring finger distal phalanx. IMPRESSION: Degenerative changes as described, more severe than in the right hand. Nic Mims MD On 08/07/2019 13:23:02; [id number] 08/07/2019 [facility] Shoulder w contrast MRI PROCED URE INFORMATION: Exam: MR Right Upper Extremity Joint With Contrast; Shoulder Exam date and time: 03/05/2019 11:38 AM Age: 63 years old Clinical indication: Impingement syndrome of right shoulder; Additional info: M75.41 impingement syndrome of right [id number] impingement syndrome of right shoulder/m75.41 impingement syndrome of right shoulder 63-year-old male reports history right shoulder pain for approximately 30 days which may be related to pulling injury of the right upper extremity when working on a car. TECHNIQUE: Imaging protocol: MR of the Right upper extremity with contrast. Exam focused on the shoulder. Contrast material: DOTAREM; Contrast volume: 0.1 ml; Contrast route: RIGHT SHOULDER JOINT; COMPARISON: No relevant prior studies available. FINDINGS: Rotator cuff: 1. Articular surface tear of the posteri or aspect of the supraspinatus insertion measuring 1 cm in length (sagittal image 24) and demonstrating focal full-thickness extension of tear. No supraspinatus tendon retraction. 2. The infraspinatus is intact. 3. Full-thickness tear of the supraspina tus tendon inferiorly measuring 12 mm craniocaudad (sagittal image 22). Slight retraction of torn tendon fibers measuring on the order of 5-10 mm. 4. No rotator cuff muscle atrophy. 5. There is free extravasation of intra- articular contrast into the subacromial space related to full-thickness rotator cuff tear. Labrum and biceps tendon: 6. Thin uniform cleft at the base of the superior labrum is considered a normal variant sublabral sulcus. No labral tear evident. 7. The biceps tendon is intact and loca manuel normally within the bicipital groove. Glenohumeral joint: 8. Glenohumeral joint cartilage grossly preserved. 9. No significant glenohumeral joint ar thritic osseous spurring. 10. No intra-articular loose body evide nt. Osseous and other: 11. Bone marrow signal is normal. 12. Moderate hypertrophic acromioclavicu lar arthropathy with inferior spurring. 13. Incidental note of small benign ench ondroma in the humeral head measuring 1.3 cm. IMPRESSION: 1. Small to moderate sized full-thicknes s tears of the supraspinatus and subscapularis tendons as described. 2. Degenerative inferior spurring at the acromioclavicular joint. 3. Incidental note of benign enchondroma in the humeral head. Wilian Christensen MD On 03/05/2019 13:28:01; [id number] 03/05/2019 [facility] Shoulder arthrogram DX PROCEDU RE INFORMATION: Exam: IR Right Shoulder arthrography; Radiological Supervision and Interpretation Exam date and time: 03/05/2019 12:23 PM Age: 63 years old Clinical indication: Pain; Shoulder; Right; Additional info: /m75.41 impingement syndrome of right shoulder, s43.421a sprain of right rotator cuff capsule, initial encounter Consent: The risks of the shoulder arthrogram procedure were personally discussed with the patient. Emphasis was placed on risk of bleeding and/or infection. Signed informed consent was obtained. Appropriate time out procedures were performed. Procedure Summary: The skin was prepped and draped in the usual fashion under aseptic precautions. 1% lidocaine was utilized for local anes thesia. Under fluoroscopic guidance a 22 gauge long spinal needle was used to access the right shoulder joint. Eleven mL of a 20 mL solution containing 10 mL Omnipaque 300, 10 mL normal saline, and 0.1 mL Dotarem was injected under fluoroscopic guidance. Contrast was seen within the joint. The needle was removed and the site was dressed with sterile technique. No immediate complications. FLUORO TIME: 29 seconds Number of spot images: 2 IMPRESSION: Technically successful fluoroscopy-guided right shoulder injection for MR arthrogram. Wilian Christensen MD On 03/05/2019 14:47:22; [id number] 03/05/2019 [facility] Spine cervical wo contrast CT PROCEDURE: CERVICAL SPINE CT CLINICAL INDICATION: M48.02, M54.12. Cervical spinal stenosis, left cervical radiculopathy. COMPARISON: Cervical spine magnetic resonance imaging 06/15/2016. TECHNIQUE: Unenhanced axial helical CT images of the cervical spine were performed. Reformatted coronal and sagittal images are available. CT radiation dose DLP: 785.83 mGy-cm. FINDINGS: There is mild curvature of the cervical spine convex to the right. There is approximately 1 to 2 mm anterolisthesis of C4 on C5, 2 mm anterolisthesis of C7 on T1 and 2 mm anterolisthesis of T2 on T3. There are degenerative changes of the atlantodens interval. There are anterior marginal osteophytes from C4 through C6 and at T3-T4. There are small Schmorl's nodes involving the vertebral endplates at C5-C6. A 9 mm sclerotic focus in the marrow of T1 is likely a benign bone island. There is multilevel facet arthropathy in the visualized upper thoracic spine. There are several subcentimeter cysts in the marrow of the medial aspect of the right clavicle. There is no demonstrable fracture or dislocation. There are mild paraseptal emphysema changes and scarring in the visualized lung apices. There are mild arterial vascular calcifications including mild calcifications of the right carotid bulb and the cavernous segments of both internal carotid arteries. There is debris in the left external auditory canal. Craniocervical junction: No significant abnormality. C2-C3: No significant abnormality. C3-C4: Posterior disc space narrowing. Broad-based posterior disc bulge/protrusion/osteophyte complex. Tiny focus of benign-appearing gas formation adjacent to the left posterior, inferior vertebral endplate at C3. Uncal vertebral joint hypertrophy. Facet arthropathy. Moderate to severe right foraminal narrowing most pronounced medially. Severe left foraminal narrowing. Mild spinal stenosis. C4-C5: Grade 1 anterolisthesis of C4 on C5. Posterior disc space narrowing. Broad-based posterior disc bulge/protrusion/osteophyte complex. Uncal vertebral joint hypertrophy. Facet arthropathy. Moderate to severe bilateral foraminal narrowing. Moderate spinal stenosis. C5-C6: Moderate to severe diffuse disc space narrowing most pronounced posteriorly. Broad-based posterior disc bulge/protrusion/osteophyte complex. Uncal vertebral joint hypertrophy. Facet arthropathy. Severe bilateral foraminal narrowing. Moderate to severe spinal stenosis. C6-C7: Posterior disc space narrowing. Broad-based posterior disc bulge/protrusion. Uncal vertebral joint hypertrophy. Facet arthropathy. Moderate to severe bilateral foraminal narrowing most pronounced medially. Mild spinal stenosis. C7-T1: Grade 1 anterolisthesis of C7 on T1. Posterior disc space narrowing. Broad-based posterior disc bulge/protrusion. Moderate to severe right foraminal narrowing. Moderate left foraminal narrowing. Mild spinal stenosis. IMPRESSION: 1. Mild curvature of the cervical spine. 2. Grade 1 anterolisthesis of C4 on C5, C7 on T1 and T2 on T3. 3. Cervical spondylosis with multilevel disc space narrowing, posterior disc bulging/protrusions, uncal vertebral joint hypertrophy, facet arthropathy, foraminal narrowing and spinal stenosis as described above. There is moderate to severe spinal stenosis at C5-C6. 4. Mild paraseptal emphysematous changes and scarring in the visualized lung apices. 5. Mild arterial vascular disease. SL: 15 07/04/2016 [facility] cervical wo contrast MRI PROCEDURE: CERVICAL SPINE MAGNETIC RESONANCE IMAGING CLINICAL INDICATION: M54.12. Radiculopathy, cervical region. COMPARISON: None. TECHNIQUE: Unenhanced axial and sagittal MR images of the cervical spine were performed. FINDINGS: There is mild curvature of the cervical spine. There is approximately 1 to 2 mm anterolisthesis of C4 on C5, 2 mm anterolisthesis of C7 on T1 and 1 to 2 mm anterolisthesis of T2 on T3. There are degenerative changes of the atlantodens interval. There is spondylosis of the cervical spine with multilevel anterior marginal osteophytes. There is mild Modic type II degenerative change of the inferior vertebral endplate at C4. There are severe Modic type I degenerative changes involving the vertebral endplates at C5-C6 with small Schmorl's nodes. There is an approximately 6 mm focus of T2 hyperintensity in the right aspect of the cervical spinal cord at the level of C6 likely due to myelomalacia (image 10 series 301). There is mucosal thickening in the visualized bilateral maxillary sinuses. There is no significant abnormality of the visualized cervical soft tissues. Craniocervical junction: No significant abnormality. No cerebellar tonsillar herniation. C2-C3: No significant abnormality. C3-C4: Mild to moderate disc space narrowing. Anterior disc bulging. Broad-based posterior disc bulge/protrusion/osteophyte complex measuring a maximal AP dimension of approximately 3 to 4 mm. Uncal vertebral joint hypertrophy. Facet arthropathy. Severe bilateral foraminal narrowing. Mild spinal stenosis. C4-C5: Grade 1 anterolisthesis of C4 on C5. Mild disc space narrowing. Anterior disc bulging. Broad-based posterior disc bulge/protrusion/osteophyte complex measuring a maximal AP dimension of approximately 2 to 3 mm. Uncal vertebral joint hypertrophy. Facet arthropathy. Severe bilateral foraminal narrowing. Moderate spinal stenosis. C5-C6: Moderate to severe diffuse disc space narrowing. Disc desiccation. Anterior disc bulging. Broad-based posterior disc bulge/protrusion/osteophyte complex measuring a maximal AP dimension of approximately 3 to 4 mm. Uncal vertebral joint hypertrophy. Facet arthropathy. Severe bilateral foraminal narrowing. Moderate to severe spinal stenosis. C6-C7: Mild posterior disc space narrowing. Broad-based posterior disc bulge/protrusion/osteophyte complex measuring a maximal AP dimension of approximately 3 mm. Uncal vertebral joint hypertrophy. Facet arthropathy. Moderate to severe right foraminal narrowing most pronounced medially. Moderate left foraminal narrowing. Mild spinal stenosis. C7-T1: Grade 1 anterolisthesis of C7 on T1. Broad-based posterior disc bulge/protrusion measuring a maximal AP dimension of approximately 2 mm. Facet arthropathy. Moderate to severe bilateral foraminal narrowing. Mild spinal stenosis. T1-T2: Facet arthropathy. Moderate right foraminal narrowing. Mild to moderate left foraminal narrowing. No significant spinal stenosis. T2-T3: Grade 1 anterolisthesis of T2 on T3. Anterior disc space narrowing. Broad-based posterior disc bulge/protrusion measuring a maximal AP dimension of approximately 2 to 3 mm. Axial images were not performed through this level limiting evaluation of the foramina and spinal canal. IMPRESSION: 1. Mild curvature of the cervical spine. 2. Grade 1 anterolisthesis of C4 on C5, C7 on T1 and T2 on T3. 3. Cervical spondylosis with multilevel disc space narrowing, posterior disc bulging/protrusions, uncal vertebral joint hypertrophy, facet arthropathy, foraminal narrowing and spinal stenosis as described above. There is moderate to severe spinal stenosis at C5-C6. 4. Subcentimeter focus of T2 hyperintens ity in the cervical spinal cord at the level of C6 likely due to myelomalacia. 5. Chronic maxillary sinusitis. Important finding was called to the referring physician's office at 1055 hours on 06/18/2016. SL: 15 06/15/2016 [facility] Consultation Notes No Data Provided for This Section Discharge Summaries No Data Provided for This Section History and Physicals No Data Provided for This Section Vital Signs Vital Sign Value Date Comments Source Systolic (mm Hg) 150 09/14/2019 [facility] Diastolic (mm Hg) 81 09/14/2019 [facility] Height 182.88 cm 09/14/2019 [facility] Weight 69.818 09/14/2019 [facility] BMI Calculated 20.88 09/14/2019 [facility] Heart Rate 64 09/14/2019 [facility] Temperature Oral (F) 97.9 F 09/14/2019 [facility] Systolic (mm Hg) 135 05/20/2019 [facility] Diastolic (mm Hg) 77 05/20/2019 [facility] Heart Rate 58 05/20/2019 [facility] Temperature Oral (F) 98.0 F 05/20/2019 [facility] Height 182.88 cm 05/20/2019 [facility] Weight 69.091 05/20/2019 [facility] BMI Calculated 20.66 05/20/2019 [facility] BMI Calculated 20.85 10/15/2018 [facility] Weight 69.727 10/15/2018 [facility] Height 182.88 cm 10/15/2018 [facility] Temperature Oral (F) 98.6 F 10/15/2018 [facility] Heart Rate 76 10/15/2018 [facility] Systolic (mm Hg) 142 10/15/2018 [facility] Diastolic (mm Hg) 88 10/15/2018 [facility] Height 182.88 cm 12/16/2017 [facility] Weight 69.727 12/16/2017 [facility] BMI Calculated 20.85 12/16/2017 [facility] Systolic (mm Hg) 144 12/16/2017 [facility] Diastolic (mm Hg) 89 12/16/2017 [facility] Heart Rate 73 12/16/2017 [facility] Temperature Oral (F) 97.8 F 12/16/2017 [facility] Weight 68.636 08/08/2017 [facility] Height 182.88 cm 08/08/2017 [facility] BMI Calculated 20.52 08/08/2017 [facility] BMI Calculated 20.79 02/27/2017 [facility] Height 182.88 cm 02/27/2017 [facility] Weight 69.545 02/27/2017 [facility] Temperature Oral (F) 98.0 F 02/27/2017 [facility] Respitory Rate 16 02/27/2017 [facility] Systolic (mm Hg) 153 02/27/2017 [facility] Diastolic (mm Hg) 80 02/27/2017 [facility] Heart Rate 79 02/27/2017 [facility] Respitory Rate 17 08/02/2016 [facility] Temperature Oral (F) 97.7 F 08/02/2016 [facility] Heart Rate 67 08/02/2016 [facility] Systolic (mm Hg) 137 08/02/2016 [facility] Diastolic (mm Hg) 79 08/02/2016 [facility] Heart Rate 67 08/02/2016 [facility] Systolic (mm Hg) 155 08/02/2016 [facility] Diastolic (mm Hg) 93 08/02/2016 [facility] Respitory Rate 16 08/02/2016 [facility] Temperature Oral (F) 98.1 F 08/02/2016 [facility] Systolic (mm Hg) 142 08/02/2016 [facility] Diastolic (mm Hg) 78 08/02/2016 [facility] Respitory Rate 16 08/02/2016 [facility] Heart Rate 57 08/02/2016 [facility] Temperature Oral (F) 97.8 F 08/02/2016 [facility] Height 182.88 cm 08/01/2016 [facility] Weight 77.273 08/01/2016 [facility] BMI Calculated 23.1 08/01/2016 [facility] Weight 76.364 07/25/2016 [facility] BMI Calculated 22.83 07/25/2016 [facility] Height 182.88 cm 07/25/2016 [facility] Height 72 0 12/05/2013 [facility] Weight 167 12/05/2013 [facility] Temperature Oral (F) 97.7 F 12/05/2013 [facility] Respitory Rate 12 12/05/2013 [facility] Heart Rate 60 12/05/2013 [facility] Systolic (mm Hg) 124 12/05/2013 [facility] Diastolic (mm Hg) 78 12/05/2013 [facility] Encounters Location Location Details Encounter Type Encounter Number Reason For Visit Attending Provider ADM Date DC Date Status Source [facility] [place] Office Visit [id number] Jh Bergeron MD 12/05/2013 12/05/2013 [facility] [place] Lab Report [id number] Jh Bergeron MD 12/05/2013 12/05/2013 [facility] [place] Lab Report [id number] Jh Bergeron MD 10/27/2014 10/27/2014 [facility] Outpatient [id number] JH BERGERON 10/27/2014 Active [facility] Outpatient [id number] JH BERGERON 10/12/2015 Active [facility] Outpatient [id number] JH BERGERON 06/06/2016 Active [facility] [id number] Jh Bergeron 06/15/2016 06/16/2016 [facility] [id number] [facility] 06/27/2016 Active [facility] [id number] [facility] 07/04/2016 07/05/2016 [facility] [id number] [facility] 08/01/2016 Active [facility] Inpatient [id number] [facility] 08/01/2016 08/02/2016 [facility] Outpatient [id number] SHELBI ESTILL 08/17/2016 Active [facility] OP Therapy Patients [id number] [facility] 08/30/2016 09/29/2016 [facility] Outpatient [id number] SHELBI ESTILL 09/14/2016 Active [facility] Outpatient [id number] SHELBI ESTILL 10/26/2016 [facility] [place] Phone Message [id number] 02/11/2017 02/13/2017 [facility] Phone Message [id number] 02/19/2017 02/21/2017 [facility] Outpatient [id number] JH BERGERON 02/27/2017 Active [facility] Outpatient [id number] JH BERGERON 02/27/2017 Active [facility] [place] Ambulatory Pre-Reg [id number] Jh Bergeron 02/27/2017 02/27/2017 [facility] [place] Outpatient [id number] Jh Sneedboo 02/27/2017 02/28/2017 [facility] [place] Phone Message [id number] 05/13/2017 05/15/2017 [facility] Phone Message [id number] 08/06/2017 08/08/2017 [facility] Outpatient [id number] SHELBI DEL REAL 08/08/2017 Active [facility] [facility] [id number] Lopez Philippe 08/08/2017 08/09/2017 [facility] [place] Phone Message [id number] 11/08/2017 11/10/2017 [facility] [id number] JH SNEEDBOO 12/16/2017 [facility] [place] [facility] [id number] Jh Senedboo 12/16/2017 12/17/2017 [facility] [place] Outside Medical Records [id number] 01/24/2018 01/26/2018 [facility] [place] Phone Message [id number] 02/07/2018 02/09/2018 [facility] Outpatient [id number] Jh Bergeron 10/15/2018 [facility] [place] [facility] [id number] Jh Sneedboo 10/15/2018 10/16/2018 [facility] [place] Between Visit [id number] 10/16/2018 10/17/2018 [facility] [place] Phone Message [id number] 02/05/2019 02/07/2019 [facility] Outpatient Imaging [facility] Dia Services [id number] Martha Carpio 03/05/2019 03/06/2019 [facility] Out[facility] [id number] Jh Shanell 05/20/2019 [facility] [place] [facility] [id number] Jh Bergeron 05/20/2019 05/21/2019 Medical [facility] [place] Between Visit [id number] 05/22/2019 05/23/2019 [facility] Outpatient Imaging [facility] Diag Services [id number] Nerissa Godinez 08/07/2019 08/08/[address] [facility] [place] Phone Message [id number] 08/11/2019 08/13/2019 Medical [facility] Outpatient [id number] Jh Bergeron 09/14/2019 Active [facility] [place] Outpatient [id number] Jh Bergeron 09/14/2019 09/15/2019 [facility] [place] Between Visit [id number] 09/15/2019 09/16/2019 [facility] [place] Phone Message [id number] 09/16/2019 09/18/2019 [facility] Procedures Procedure Code Date Perfomer Comments Source Destruction (eg, laser surgery, electros urgery, cryosurgery, chemosurgery, surgical curettement), premalignant lesions (eg, actinic keratoses); second through 14 lesions, each (List separately in addition to code for first lesion) [id number] 09/14/2019 [facility] Destruction (eg, laser surgery, electros urgery, cryosurgery, chemosurgery, surgical curettement), premalignant lesions (eg, actinic keratoses); first lesion [id number] 09/14/2019 [facility] Incision and drainage of abscess (eg, ca rbuncle, suppurative hidradenitis, cutaneous or subcutaneous abscess, cyst, furuncle, or paronychia); simple or single [id number] 10/15/2018 Medical [facility] Colonoscopy [id number] 01/22/2018 Medical Group, BOAZ Barrios smoking/tobacco cessation, patient educa tion and counseling 14 12/05/2013 yes [facility] Esophagogastroduodenoscopy [phone] [facility], [facility] Barrios,[facility] Manipulation of deviated nasal septum [id number] [facility], BOAZ Barrios,[facility] Assessment and Plan Assessment and Plan Date Source Extracted from:Title: Clinical Document Author: Shelbi Gonzalez RADIOGRAPHER MAMMOGRAPHER Date: 08/02/16 Discharge Summary Admit: 08/01/16 discharge: 08/02/16 Dx: cervical stenosis with myelopathy Procedure: RIGHT C4-6 laminoplasty, partial C7 laminectomy and bilatereal C5-6 foraminotomy Hospitalization: Uneventful hospital stay, with ancef peripoeratively, SCD and HSQ used for dvt prophylaxis. Patient displays stable neurological exam postoperatively, incision is clean, dry and intact, and hemovac drain had 0 output and was removed POD 1. PE: Neurosurgery Postop Note S: Slowly waking up from anesthesia O: AFVSS D B T WE FE FF HI IPs R 4- 4- 4- 4- 4- 4- 4- 4- L 4- 4- 4- 4- 4- 4- 4- 4- c/d/i drain serosanguinous D/C PLAN: - D/c to home after patient works with P T - prescirption for norco and nicotine pa tch to be given upon discharge - ok to shower, no baths or swimming - f/u in clinic in 2 weeks for postop vi sit Shelbi Gonzalez APRN Extracted from:Title: Clinical Document Author: Shelbi Gonzalez RADIOGRAPHER MAMMOGRAPHER Date: 08/02/16 Neurosurgery Postop Note S: Patient is awake, sitting up in bed. He reports some posterior neck tightness and soreness, but denies severe pain. He reports continued numbness in his hands. O: AFVSS D B T WE FE FF HI IPs R 4- 4- 4- 4- 4- 4- 4- 4- L 4- 4- 4- 4- 4- 4- 4- 4- c/d/i drain serosanguinous - 0cc output A/P: POD1 s/p RIGHT approach C4-C6 laminoplasty, partial C7 laminectomy, BILATERAL C5-C6 foraminotomies - neuro stable - SCDs and HSQ for DVT prophylaxis - mobilize, PT/OT - ancef - drain d/c'd - Will discharge to home after PT Shelbi Gonzalez APRN I, Lopez Paez, personally evaluated this patient. Extracted from:Title: Clinical Document Author: Lopez Paez MD Date: 08/01/16 PATIENT NAME: MAHSA TYLER DATE OF OPERATION/PROCEDURE: 08/01/2016 *_*_* PREOPERATIVE DIAGNOSIS: 1. Severe cord compression with myelo ravi from C4 to C7. 2. Foraminal stenosis C5-C6 bilateral ly POSTOPERATIVE DIAGNOSIS: 1. Severe cord compression with myelo ravi from C4 to C7. 2. Foraminal stenosis C5-C6 bilateral ly PROCEDURES PERFORMED: 1. Posterior midline approach to cerv ical spine from C4 to C7. 2. Decompression with RIGHT-sided trotter inoplasty from C4 to C6. 3. BILATERAL foraminomties at C5-C6 4. Partial laminectomy superior C7. 5. Use of microscope for decompressio n. 6. Segmental posterior instrumentatio n from C4 to C6 using the following devices: [employer] Escalate laminoplasty set. [place] C4 12 mm (extended) plate lateral mass screws, 2.0*6 mm * 2 laminar screws, 2.0*6 mm * 1 C5 12 mm (extended) plate lateral mass screws, 2.0*6 mm * 2 laminar screws, 2.0*6 mm * 1 C6 12 mm (extended) plate lateral mass screws, 2.0*6 mm * 2 laminar screws, 2.0*6 mm * 1 7. Use of radiographs for vertebral l evel localization. SURGEON: Lopez Paez MD MANAGER CAMP: [place] ANESTHESIA: General endotracheal tube anesthesia. COMPLICATIONS: None. INTRAVENOUS FLUIDS: 1500 cc URINE OUTPUT: 900 cc ESTIMATED BLOOD LOSS: 100 cc INDICATIONS FOR SURGERY: 60 yo M h/o hemochromatosis on chronic A SA presenting with C4-C7 cord compression and C5-C6 foraminal stenosis. Patient has been experiencing worsening clumsiness hands, dropping things, poor balance and ambulation for 7 years but getting worse over the last few months. MRI shows severe central stenosis from C4-C5 (7 mm), C5-C6 (5 mm with T2 changes). There is also multilevel foraminal stenosis, worst at C5-C6 (bilaterally severe). On exam, he has 4- strength throughout with increased tone and positive rhomberg along with the swollen joint stigmata of hemochromatosis. Due to rapidly progressive myelopathy and radiculopathy over the last several months, we recommend: RIGHT approach C4-C6 laminoplasty with partial C7 laminectomy, C5-C6 foraminotomies. We discussed the risks and benefits of the procedure. Risks would include bleeding, infection, neurologic injury including weakness, numbness, paralysis, , CSF leak, instability, and further need for reoperation. There is risk of failure of instrumentation. There is risk of C5 or C6 post-laminectomy radiculopathy. The patient expressed understanding of the risks and benefits of the procedure. All questions were answered. No guarantees were made to the outcome of the case. DESCRIPTION OF PROCEDURE: The patient was appropriately identified with all markers. The patient was brought back by anesthesia and received general endotracheal tube anesthesia with the neck held in neutral position. Anesthesia was instructed at this time to maintain mean arterial pressure greater than 85. The patient was dosed with preoperative antibiotics within 1 hour prior to incision. Simental prongs were then carefully placed about the patient's cranium under sterile conditions with the pressure tightened to 60 pounds of torque. The patient was then carefully turned prone onto the operating room table with gel rolls on the Simental frame attachment with the head and neck in neutral position. Foam tape was then used to provide gentle traction to the skin of the shoulders. The neck was then prepped and draped in sterile fashion including alcohol, ChloraPrep and Betadine scrub and paint. Operative timeout was performed. Skin was injected with 0.5% Marcaine with epinephrine. A #10 blade scalpel was then used to make a vertical longitudinal incision along the spinous processes from C4 to C7. Bovie cautery was then used to deepen the incision through subcutaneous tissue and fascia to bring the incision down to the spinous processes. A curet was applied to the lamina, and lateral radiographs were taken to confirm the vertebral level. With radiographic position of the level confirmed, the posterior elements of vertebral bodies from above were exposed in subperiosteal fashion using Bovie cautery, Rolando, and curettes to skeletonize the posterior elements from lateral mass to lateral mass bilaterally, taking care to preserve all facet joint and overlying muscle attachments. Cerebellar retractors were placed for self-retaining exposure. Attention was placed towards the laminoplasty. The operating microscope was brought into the field. Laminoplasty was performed with the pneumatic [employer] drill with a matchstick drill, forming 2 troughs at the lateral border of the lamina from C4 to C6. The RIGHT-sided trough was complete through the cortex, and the opposite trough was partial-thickness to allow the hinge. Lamina was then hinged laterally, and appropriate sized plates from C4 to C6 were trialed, inserted and secured in standard fashion. The central canal was visibly decompressed. By the end of laminoplasty the central canal could be shown to be free from pedicle to pedicle. The wounds were copiously irrigated with bacitracin irrigation. Partial laminectomy at C7 was performed. Specifically, the superior lamina of C7 were removed bilaterally while maintaining the interspinous ligament. These were performed with a [employer] pneumatic drill, Kerrison punches, curets. Bone bleeding was stopped with bone wax again from pedicle to pedicle. BILATERAL foraminotomies at C7 were performed. Specifically, a combination of straight and angled curets, Kerrison and a pneumatic drill was used to expand the foramen with care not to disrupt more than one-third of the lateral mass. Once decompression was completed the central canal was completely decompressed from C4 to C7. Palpation with a dental instrument showed the decompression laterally to be at the level at the pedicle. The wound was copiously irrigated with bacitracin irrigation. A 10-Croatian round Hemovac drain was placed underneath the fascia. One gram of vancomycin powder was then placed within the wound. Closure was then commenced. The fascia closed with 0-Vicryl interrupted fashion in multiple layers. The dermis was closed with 2-0 Vicryl in interrupted fashion. The skin was reapproximated with Mastisol and Steri-Strips, followed by Telfa and Hypafix tape. Hypafix tape was used to secure the dressing and drain. All needle and sponge counts were correct. There were no complications during the surgery. The patient was then carefully rolled supine onto a hospital bed. Simental tongs were then removed. The patient was revived, extubated and taken to the recovery room in stable condition, moving all 4 extremities at baseline strength. Dr. Lopez Paez was scrubbed and present for the entire procedure. We discussed at the completion of the case with the patient's family, who were very grateful for the care and information. All questions were answered. 08/02/2016 [facility] Plan of Care No Data Provided for This Section Social History Social History Date Source Social History TypeResponse Alcohol Current, Type Beer. Frequency: Daily. 3 Drinks/Episode average. 4.00 Drinks/Episode maximum. Employment/School Status: Employed. 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 Operates hazardous equipment: Yes. Workplace hazards: Heavy lifting/twisting. Substance Abuse Use: None. Smoking Status Current every day smoker; Type: Cigarettes; Lives with someone who smokes; Cigarette Smoking Last 365 Days Yes; Reg Smoking Cessation Counseling Yes; Tobacco use per day: 20; Started at age: 21.0; entered on: 09/14/19 08/01/2016 [facility] Social History TypeResponse Alcohol Current, Type Beer. Frequency: Daily. 3 Drinks/Episode average. 4.00 Drinks/Episode maximum. Employment/School Status: Employed. 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 Operates hazardous equipment: Yes. Workplace hazards: Heavy lifting/twisting. Substance Abuse Use: None. Smoking Status Current every day smoker; Type: Cigarettes; Lives with someone who smokes; Cigarette Smoking Last 365 Days Yes; Reg Smoking Cessation Counseling Yes; Tobacco use per day: 20; Started at age: 21.0; entered on: 05/20/19 08/01/2016 [facility] Social History TypeResponse Substance Abuse Use: None. Employment/School Status: Employed. 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 Operates hazardous equipment: Yes. Workplace hazards: Heavy lifting/twisting. Alcohol Current, Type Beer. Frequency: Daily. 3 Drinks/Episode average. 4.00 Drinks/Episode maximum. Smoking Status Current every day smoker; Type: Cigarettes; Tobacco use per day: 20; Started at age: 21.0; Lives with someone who smokes; Cigarette Smoking Last 365 Days Yes; Reg Smoking Cessation Counseling Yes 10/27/2014 [facility] Social History TypeResponse Substance Abuse Use: None. Employment/School Status: Employed. 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 Operates hazardous equipment: Yes. Workplace hazards: Heavy lifting/twisting. Alcohol Current, Type Beer. Frequency: Daily. 3 Drinks/Episode average. 4.00 Drinks/Episode maximum. Smoking Status Current every day smoker; Type: Cigarettes; Tobacco use per day: 20; Started at age: 21.0; Lives with someone who smokes; Cigarette Smoking Last 365 Days Yes; Reg Smoking Cessation Counseling Yes 10/27/2014 [facility] Social History TypeResponse Substance Abuse Use: None. Employment/School Status: Employed. 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 Operates hazardous equipment: Yes. Workplace hazards: Heavy lifting/twisting. Alcohol Current, Type Beer. Frequency: Daily. 3 Drinks/Episode average. 4.00 Drinks/Episode maximum. Smoking Status Current every day smoker; Type: Cigarettes; Lives with someone who smokes; Cigarette Smoking Last 365 Days Yes; Reg Smoking Cessation Counseling Yes; Tobacco use per day: 20; Started at age: 21.0; entered on: 08/08/17 10/27/2014 [facility] Family History No Data Provided for This Section Advance Directives No Data Provided for This Section Functional Status No Data Provided for This Section
--- OUTSIDE RECORDS SUMMARY | 2019-10-16 14:39 | XMS REPORT | Summary of Care ---
Author Author [facility] [place] Organization [facility] [place] Address Unknown Phone Unavailable Encounter HQ Melissa_cristhian(FIN) [id number] Date(s): 05/20/19 - 05/20/19 [facility] [place] 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 2Data migrated from [employer] on 08/14/14. 3Data migrated from [employer] on 08/14/14. 4Data migrated from [employer] on 08/14/14. 5Data migrated from [employer] on 10/02/14. 6Data migrated from [employer] on 08/14/14. 7Data migrated from [employer] on 08/14/14. Allergies, Adverse Reactions, Alerts Substance Reaction Severity Status angiotensin converting Active enzyme inhibitors1 1Data migrated from [employer] on 10/14/14. Originally documented as CARRIE INHIBITORS. Medications No Known Medications Results No data available for this section Immunizations Given and Recorded Vaccine Date Status Refusal Reason diphtheria/pertussis, acel/tetanus adult1 12/05/13 Given Hx influenza vaccine-unspecified2 01/02/12 Give n tetanus-diphtheria toxoids3 09/12/04 Given 1Result Comment: boostrix [[id number]]. Migrated from OBS ; Data migrated from [employer] on 04/19/2015. 2Result Comment: fluvax. Migrated from OBS ; Data migrated from [employer] on 04/19/2015. 3Result Comment: td. Migrated from OBS ; Data migrated from [employer] on 04/19/2015. Procedures Procedure Date Related Diagnosis Body Site Status Colonoscopy 01/22/18 Completed Esophagogastroduodenoscopy Completed Manipulation of deviated nasal septum Completed Social History Social History Type Response Alcohol Current, Type Beer. Freque ncy: Daily. 3 Drinks/Episode average. 4.00 Drinks/Episode maximum. Employment/School Status: Employed. 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 Operates hazar dous equipment: Yes. Workplace hazards: Heavy lifting/twisting. Substance Abuse Use: None. Smoking Status Current every day smoker; T ype: Cigarettes; Lives with someone who smokes; Cigarette Smoking Last 365 Days Yes; Re g Smoking Cessation Counseling Yes; Tobacco use per day: 20; Started at age : 21.0; entered on: 05/20/19 Assessment and Plan No data available for this section
--- OUTSIDE RECORDS SUMMARY | 2019-10-16 14:39 | XMS REPORT | Summary of Care ---
Author Author [facility] [place] Organization [facility] [place] Address Unknown Phone Unavailable Encounter HQ Annelise(FIN) [id number] Date(s): 02/11/17 - 02/12/17 [facility] [place] [address] [place] [phone] Vital Signs No data available for this section Problem List Condition Effective Dates Status Health Status Informan t Arthritis1 Active Lockwood's esophagus2 Active Barretts Active esophagus(Confirmed) Benign hypertension3 Active Gastroesophageal Active reflux disease4 Acid Active reflux(Confirmed) H/O: blood disorder5 Resolved Hereditary [birth year] [...] 10/14/14. Originally documented as CARRIE INHIBITORS. Medications hydrochlorothiazide-irbesartan 12.5 mg-150 mg oral tablet See Instructions, # 90 tab, TAKE 1 TABLET DAILY, Pharmacy: [facility] Start Date: 02/11/17 Status: Ordered Results No data available for this section Immunizations Given and Recorded Vaccine Date Status Refusal Reason diphtheria/pertussis, acel/tetanus adult1 12/05/13 Given Hx influenza vaccine-unspecified2 01/02/12 Give n tetanus-diphtheria toxoids3 09/12/04 Given 1Result Comment: boostrix [[id number]]. Migrated from OBS ; Data migrated from [employer] on 04/19/2015. 2Result Comment: fluvax. Migrated from OBS ; Data migrated from [employer] on 04/19/2015. 3Result Comment: td. Migrated from OBS ; Data migrated from [employer] on 04/19/2015. Procedures Procedure Date Related Diagnosis Body Site Esophagogastroduodenoscopy Manipulation of deviated nasal septum Social History Social History Type Response Substance Abuse Use: None. Employment/School Status: Employed. 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 Operates [employer] equipment: Yes. Workplace hazards: Heavy lifting/twisting. Alcohol Current, Type Beer. Freque ncy: Daily. 3 Drinks/Episode average. 4.00 Drinks/Episode maximum. Smoking Status Current every day smoker; T ype: Cigarettes; Lives with someone who smokes; Cigarette Smoking Last 365 Days Yes; Re g Smoking Cessation Counseling Yes; Tobacco use per day: 20; Started at age : 21.0; Assessment and Plan No data available for this section
--- OUTSIDE RECORDS SUMMARY | 2019-10-16 14:39 | XMS REPORT | Summary of Care ---
Author Author [facility] Organization [facility] Address Unknown Phone Unavailable Encounter HQ Annelise(FIN) [id number] Date(s): 08/08/17 - 08/08/17 [facility] [address] [address], [address] [place], [place] [address] [phone] Discharge Disposition: Home or Self Care Attending Physician: Peyton Gonzalez NP Referring Physician: Lopez Paez MD Vital Signs Most recent to 1 oldest [Reference Range]: Height 182.88 cm (08/08/17 8:33 AM) Weight 68.636 kg (08/08/17 8:33 AM) Body Mass Index 20.52 m2 (08/08/17 8:33 AM) Problem List Condition Effective Dates Status [...] Originally documented as CARRIE INHIBITORS. Medications No data available for this section Results No data available for this section Immunizations Given and Recorded Vaccine Date Status Refusal Reason diphtheria/pertussis, acel/tetanus adult1 12/05/13 Given Hx influenza vaccine-unspecified2 01/02/12 Give n tetanus-diphtheria toxoids3 09/12/04 Given 1Result Comment: boostrix [[id number]]. Migrated from [employer] ; Data migrated from [employer] on 04/19/2015. 2Result Comment: fluvax. Migrated from OBS ; Data migrated from [employer] on 04/19/2015. 3Result Comment: td. Migrated from OBS ; Data migrated from [employer] on 04/19/2015. Procedures Procedure Date Related Diagnosis Body Site Status Esophagogastroduodenoscopy Completed Manipulation of deviated nasal septum Completed Social History Social History Type Response Substance Abuse Use: None. Employment/School Status: Employed. 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 Operates [employer] equipment: Yes. Workplace hazards: Heavy lifting/twisting. Alcohol Current, Type Beer. Freque ncy: Daily. 3 Drinks/Episode average. 4.00 Drinks/Episode maximum. Smoking Status Current every day smoker; T ype: Cigarettes; Lives with someone who smokes; Cigarette Smoking Last 365 Days Yes; Re g Smoking Cessation Counseling Yes; Tobacco use per day: 20; Started at age : 21.0; entered on: 08/08/17 Assessment and Plan No data available for this section
--- OUTSIDE RECORDS SUMMARY | 2019-10-16 14:39 | XMS REPORT | Summary of Care ---
Author Author [facility] [place] Organization [facility] [place] Address Unknown Phone Unavailable Encounter HQ Tamrar_cristhian(FIN) [id number] Date(s): 05/13/17 - 05/14/17 [facility] [place] [address] [place], [place] [address] [phone] Vital Signs No data available for this [...] oral tablet See Instructions, # 90 tab, Refill(s) 1, TAKE 1 TABLET DAILY, Pharmacy: [facility] Start Date: 05/13/17 Status: Ordered Results No data available for this section Immunizations Given and Recorded Vaccine Date Status Refusal Reason diphtheria/pertussis, acel/tetanus adult1 12/05/13 Given Hx influenza vaccine-unspecified2 01/02/12 Give n tetanus-diphtheria toxoids3 09/12/04 Given 1Result Comment: boostrix [[id number]]. Migrated from OBS ; Data migrated from [employer] on 04/19/2015. 2Result Comment: fluvax. Migrated from OBS ; Data migrated from [employer] on 04/19/2015. 3Result Comment: td. Migrated from OBS ; Data migrated from [employer] on 04/19/2015. Procedures Procedure Date Related Diagnosis Body Site Status Esophagogastroduodenoscopy Completed Manipulation of deviated nasal septum Completed Social History Social History Type Response Substance Abuse Use: None. Employment/School Status: Employed. 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 Operates [employer] equipment: Yes. Workplace hazards: Heavy lifting/twisting. Alcohol [...]
--- OUTSIDE RECORDS SUMMARY | 2019-10-16 14:39 | XMS REPORT | Summary of Care ---
Author Author [facility] Outpatient Imaging [facility] Outpatient Imaging [facility] Address Unknown Phone Unavailable Encounter MARY JO Castelan(SHAMAR) [id number] Date(s): 06/15/16 - 06/15/16 [facility] Outpatient Imaging [address], [address] [place] [address]- [phone] Discharge Disposition: Home or Self Care Attending Physician: Jh Reece MD Vital Signs No data available for this section Problem List Condition Effective Dates Status Health Status Informan t Arthritis1 Active Lockwood's esophagus2 Active Benign hypertension3 Active Gastroesophageal Active reflux disease4 H/O: blood disorder5 Resolved Hereditary 03/18/59 Active hemochromatosis6 Milk cyst(Confirmed) Active Non-neoplastic 12/05/13 Active nevus7 1Data migrated from [employer] on 08/14/14. [...] tetanus-diphtheria toxoids3 09/12/04 Given 1Result Comment: boostrix [[id number]]. Migrated from OBS ; Data migrated from [employer] on 04/19/2015. 2Result Comment: fluvax. Migrated from [employer] ; Data migrated from [employer] on 04/19/2015. 3Result Comment: td. Migrated from [employer] ; Data migrated from [employer] on 04/19/2015. Procedures Procedure Date Related Diagnosis Body Site Manipulation of deviated nasal septum Social History Social History Type Response Substance Abuse Use: None. Employment/School Status: Employed. 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 Operates [employer] equipment: Yes. Workplace hazards: Heavy lifting/twisting. Alcohol Current, Type Beer. Freque ncy: Daily. 3 Drinks/Episode average. 4.00 Drinks/Episode maximum. Smoking Status Current every day smoker; T ype: Cigarettes; Tobacco use per day: 20; Started at age: 21.0; Exposure to Tobac co Smoke None; Cigarette Smoking Last 365 Days Yes; Reg Smoking Cessatio n Counseling No Assessment and Plan No data available for this section
--- OUTSIDE RECORDS SUMMARY | 2019-10-16 14:39 | XMS REPORT | Summary of Care ---
Author Author [facility] Organization [facility] Address Unknown Phone Unavailable Encounter HQ Tamrar_cristhian(FIN) [id number] Date(s): 08/06/17 - 08/07/17 [facility] [address] [place] [phone] Vital Signs No data available for this [...] tetanus-diphtheria toxoids3 09/12/04 Given 1Result Comment: boostrix [[id number]]. Migrated from OBS ; Data migrated from [employer] on 04/19/2015. 2Result Comment: fluvax. Migrated from OBS ; Data migrated from [employer]Chatter on 04/19/2015. 3Result Comment: td. Migrated from OBS ; Data migrated from [employer]Chatter on 04/19/2015. Procedures Procedure Date Related Diagnosis Body Site Status Esophagogastroduodenoscopy Completed Manipulation of deviated nasal septum Completed Social History Social History Type Response Substance Abuse Use: None. Employment/School Status: Employed. 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 Operates [employer] equipment: Yes. Workplace hazards: Heavy lifting/twisting. Alcohol [...]
--- OUTSIDE RECORDS SUMMARY | 2019-10-16 14:39 | XMS REPORT | Summary of Care ---
Author Author [facility] Organization [facility] Address Unknown Phone Unavailable Encounter HQ Melissa_cristhian(FIN) [id number] Date(s): 02/27/17 - 02/27/17 [facility] [address] [place] [address] Attending Physician: Jh Reece MD Vital Signs [...] tetanus-diphtheria toxoids3 09/12/04 Given 1Result Comment: boostrix [[id number]]. Migrated from OBS ; Data migrated from [employer] on 04/19/2015. 2Result Comment: fluvax. Migrated from OBS ; Data migrated from [employer]oriescity on 04/19/2015. 3Result Comment: td. Migrated from OBS ; Data migrated from [employer] on 04/19/2015. Procedures Procedure Date Related Diagnosis Body Site Esophagogastroduodenoscopy Manipulation of deviated nasal septum Social History Social History Type Response Substance Abuse Use: None. Employment/School Status: Employed. 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 Operates [employer] equipment: Yes. Workplace hazards: Heavy lifting/twisting. Alcohol [...]
--- OUTSIDE RECORDS SUMMARY | 2019-10-16 14:39 | XMS REPORT | Summary of Care ---
Author Author [facility] [place] Organization [facility] [place] Address Unknown Phone Unavailable Encounter HQ Justinntr_cristhian(FIN) [phone] Date(s): 05/22/19 - 05/23/19 [facility] [place] [address] [place] [address]- Vital Signs No data available for this [...] tetanus-diphtheria toxoids3 09/12/04 Given 1Result Comment: boostrix [[id number]]. Migrated from OBS ; Data migrated from [employer] on 04/19/2015. 2Result Comment: fluvax. Migrated from OBS ; Data migrated from [employer] on 04/19/2015. 3Result Comment: td. Migrated from OBS ; Data migrated from [employer] on 04/19/2015. Procedures Procedure Date Related Diagnosis Body Site Status Colonoscopy 01/22/18 Completed Esophagogastroduodenoscopy Completed Manipulation of deviated nasal septum Completed Social History Social History Type Response Alcohol Current, Type Beer. Freque ncy: Daily. 3 Drinks/Episode average. 4.00 Drinks/Episode maximum. Employment/School Status: Employed. 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 Operates [employer] equipment: Yes. Workplace hazards: Heavy lifting/twisting. Substance [...]
--- OUTSIDE RECORDS SUMMARY | 2019-10-16 14:39 | XMS REPORT | Summary of Care ---
Author Author [facility] Outpatient Imaging [facility] Outpatient Imaging [facility] Address Unknown Phone Unavailable Care Team Providers Care Company Pilot Name Role Phone Jh Reece PCP Encounter HQ Encntr_alias(FIN) [id number] Date(s): 08/07/19 - 08/07/19 [facility] Outpatient Imaging [address], [address] [facility] [place] [address] [phone] Discharge Disposition: Home or Self Care Attending Physician: Nerissa Godinez MD Referring Physician: Nerissa Godinez MD Vital Signs No data available for [...] tetanus-diphtheria toxoids3 09/12/04 Given 1Result Comment: boostrix [[id number]]. Migrated from OBS ; Data migrated from [employer] ([employer]) on 04/19/2015. 2Result Comment: fluvax. Migrated from OBS ; Data migrated from [employer] ([employer]) on 04/19/2015. 3Result Comment: td. Migrated from OBS ; Data migrated from [employer] ([employer]) on 04/19/2015. Procedures Procedure Date Related Diagnosis Body Site Status Colonoscopy 01/22/18 Completed Esophagogastroduodenoscopy Completed Manipulation of deviated nasal septum Completed Social History Social History Type Response Alcohol Current, Type Beer. Freque ncy: Daily. 3 Drinks/Episode average. 4.00 Drinks/Episode maximum. Employment/School Status: Employed. 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 Operates [employer] equipment: Yes. Workplace hazards: Heavy lifting/twisting. Substance [...]
--- OUTSIDE RECORDS SUMMARY | 2019-10-16 14:39 | XMS REPORT | Summary of Care ---
Author Author [facility] [place] Organization [facility] [place] Address Unknown Phone Unavailable Encounter HQ Justinntr_cristhian(FIN) [id number] Date(s): 11/08/17 - 11/09/17 [facility] [place] [address] [place] [address] [phone] Vital Signs No data available for this [...] 90 tab, TAKE 1 TABLET DAILY, Pharmacy: [facility] Start Date: 11/08/17 Stop Date: 02/07/18 Status: Completed Results No data available for this section Immunizations Given and Recorded Vaccine Date Status Refusal Reason diphtheria/pertussis, acel/tetanus adult1 12/05/13 Given Hx influenza vaccine-unspecified2 01/02/12 Give n tetanus-diphtheria toxoids3 09/12/04 Given 1Result Comment: boostrix [[id number]]. Migrated from [employer] ; Data migrated from [employer] on 04/19/2015. 2Result Comment: fluvax. Migrated from OBS ; Data migrated from [employer] on 04/19/2015. 3Result Comment: td. Migrated from OBS ; Data migrated from WorldDoc on 04/19/2015. Procedures Procedure Date Related Diagnosis Body Site Status Esophagogastroduodenoscopy Completed Manipulation of deviated nasal septum Completed Social History Social History Type Response Substance Abuse Use: None. Employment/School Status: Employed. 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 Operates [employer] equipment: Yes. Workplace hazards: Heavy lifting/twisting. Alcohol Current, Type Beer. Freque ncy: Daily. 3 Drinks/Episode average. 4.00 Drinks/Episode maximum. Smoking Status Current every day smoker; T ype: Cigarettes; Lives with someone who smokes; Cigarette Smoking Last 365 Days Yes; Re g Smoking Cessation Counseling Yes; Tobacco use per day: 20; Started at age : 21.0; entered on: 12/16/17 Assessment and Plan No data available for this section
--- OUTSIDE RECORDS SUMMARY | 2019-10-16 14:39 | XMS REPORT | Summary of Care ---
Author Author [facility] [place] Organization [facility] [place] Address Unknown Phone Unavailable Encounter HQ Annelise(FIN) [phone] Date(s): 12/16/17 - 12/16/17 [facility] [place] [address] [place] [address]- [phone] Discharge Disposition: Home or Self Care Attending Physician: Jh Reece MD Vital Signs Most recent to 1 oldest [Reference Range]: Height 182.88 cm (12/16/17 3:45 PM) Temperature Oral 97.8 DegF [96.4-99.1 DegF] (12/16/17 3:45 PM) Blood Pressure 144/89 mmHg [90-140/60-90 mmHg] *HI* (12/16/17 3:45 PM) Peripheral Pulse 73 bpm Rate [60-100 bpm] (12/16/17 3:45 PM) Weight 69.727 kg (12/16/17 3:45 PM) Body Mass Index 20.85 m2 (12/16/17 3:45 PM) Problem List Condition Effective Dates Status Health [...] tetanus-diphtheria toxoids3 09/12/04 Given 1Result Comment: boostrix [[id number]]. Migrated from OBS ; Data migrated from [...] Substance Abuse Use: None. Employment/School Status: Employed. 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 Operates [employer] equipment: Yes. Workplace hazards: Heavy lifting/twisting. Alcohol [...]
--- OUTSIDE RECORDS SUMMARY | 2019-10-16 14:39 | XMS REPORT | Summary of Care ---
Author Author [facility] [place] Organization [facility] [place] Address Unknown Phone Unavailable Encounter HQ Annelise(FIN) [phone] Date(s): 02/07/18 - 02/08/18 [facility] [place] [address] [place] [address]- Vital Signs No data available for this [...] Medications hydrochlorothiazide-irbesartan 12.5 mg-150 mg oral tablet = 1 tab, PO, Daily, # 90 tab, Refill(s) 1, Pharmacy: [facility] Start Date: 02/07/18 Status: Ordered Results No data available for this section Immunizations Given and Recorded Vaccine Date Status Refusal Reason diphtheria/pertussis, acel/tetanus adult1 12/05/13 Given Hx influenza vaccine-unspecified2 01/02/12 Give n tetanus-diphtheria toxoids3 09/12/04 Given 1Result Comment: boostrix [[id number]]. Migrated from OBS ; Data migrated from [employer] on 04/19/2015. 2Result Comment: fluvax. Migrated from OBS ; Data migrated from [employer] on 04/19/2015. 3Result Comment: td. Migrated from OBS ; Data migrated from [employer] on 04/19/2015. Procedures Procedure Date Related Diagnosis Body Site Status Colonoscopy 01/22/18 Completed Esophagogastroduodenoscopy Completed Manipulation of deviated nasal septum Completed Social History Social History Type Response Substance Abuse Use: None. Employment/School Status: Employed. 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 Operates [employer] equipment: Yes. Workplace hazards: Heavy lifting/twisting. Alcohol [...]
--- OUTSIDE RECORDS SUMMARY | 2019-10-16 14:39 | XMS REPORT | Summary of Care ---
Author Author [facility] [place] Organization [facility] [place] Address Unknown Phone Unavailable Encounter HQ Melissa_cristhian(FIN) [id number] Date(s): 09/15/19 - 09/16/19 [facility] [place] [address] [place] [address]- Vital Signs No data available for this [...] tetanus-diphtheria toxoids3 09/12/04 Given 1Result Comment: boostrix [[id number]]. Migrated from OBS ; Data migrated from [email or web address] on 04/19/2015. 2Result Comment: fluvax. Migrated from OBS ; Data migrated from [email or web address] on 04/19/2015. 3Result Comment: td. Migrated from OBS ; Data migrated from [email or web address] on 04/19/2015. Procedures Procedure Date Related Diagnosis Body Site Status Colonoscopy 01/22/18 Completed Esophagogastroduodenoscopy Completed Manipulation of deviated nasal septum Completed Social History Social History Type Response Alcohol Current, Type Beer. Freque ncy: Daily. 3 Drinks/Episode average. 4.00 Drinks/Episode maximum. Employment/School Status: Employed. 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 Operates [employer] equipment: Yes. Workplace hazards: Heavy lifting/twisting. Substance Abuse Use: None. Smoking Status Current every day smoker; T ype: Cigarettes; Lives with someone who smokes; Cigarette Smoking Last 365 Days Yes; Re g Smoking Cessation Counseling Yes; Tobacco use per day: 20; Started at age : 21.0; entered on: 09/14/19 Assessment and Plan No data available for this section
--- OUTSIDE RECORDS SUMMARY | 2019-10-16 14:39 | XMS REPORT | Summary of Care ---
Author Author [facility] [place] Organization [facility] [place] Address Unknown Phone Unavailable Encounter HQ Melissa_cristhian(FIN) [phone] Date(s): 10/15/18 - 10/15/18 [facility] [place] [address] [place] [address] [phone] Discharge Disposition: Home or Self Care Attending Physician: Jh Reece MD Vital Signs Most recent to 1 oldest [Reference Range]: Height 182.88 cm (10/15/18 4:06 PM) Temperature Oral 98.6 DegF [96.4-99.1 DegF] (10/15/18 4:06 PM) Blood Pressure 142/88 mmHg [90-140/60-90 mmHg] *HI* (10/15/18 4:06 PM) Peripheral Pulse 76 bpm Rate [60-100 bpm] (10/15/18 4:06 PM) Weight 69.727 kg (10/15/18 4:06 PM) Body Mass Index 20.85 m2 (10/15/18 4:06 PM) Problem List Condition Effective Dates Status [...] tetanus-diphtheria toxoids3 09/12/04 Given 1Result Comment: boostrix [[id number]]. Migrated from OBS ; Data migrated from [employer] on 04/19/2015. 2Result Comment: fluvax. Migrated from OBS ; Data migrated from [employer] on 04/19/2015. 3Result Comment: td. Migrated from OBS ; Data migrated from [employer] on 04/19/2015. Procedures Procedure Date Related Diagnosis Body Site Status Incision and drainage of abscess (eg, 10/15/18 Completed carbuncle, suppurative hidradenitis, cutaneous or subcutaneous abscess, cyst , furuncle, or paronychia); simple or sin gle Colonoscopy 01/22/18 Completed Esophagogastroduodenoscopy Completed Manipulation of deviated nasal septum Completed Social History Social History Type Response Substance Abuse Use: None. Employment/School Status: Employed. 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 Operates [employer] equipment: Yes. Workplace hazards: Heavy lifting/twisting. Alcohol Current, Type Beer. Freque ncy: Daily. 3 Drinks/Episode average. 4.00 Drinks/Episode maximum. Smoking Status Current every day smoker; T ype: Cigarettes; Lives with someone who smokes; Cigarette Smoking Last 365 Days Yes; Re g Smoking Cessation Counseling Yes; Tobacco use per day: 20; Started at age : 21.0; entered on: 10/15/18 Assessment and Plan No data available for this section
--- OUTSIDE RECORDS SUMMARY | 2019-10-16 14:39 | XMS REPORT | Summary of Care ---
Author Author [facility] [place] Organization [facility] [place] Address Unknown Phone Unavailable Encounter HQ Tamrar_cristhian(FIN) [id number] Date(s): 02/27/17 - 02/27/17 [facility] [place] [address] [place] [phone] Discharge Disposition: Home or Self Care Attending Physician: Jh Reece MD Vital Signs Most recent to 1 oldest [Reference Range]: Height 182.88 cm (02/27/17 3:48 PM) Temperature Oral 98.0 DegF [96.4-99.1 DegF] (02/27/17 3:48 PM) Blood Pressure 153/80 mmHg [90-140/60-90 mmHg] *HI* (02/27/17 3:48 PM) Respiratory Rate 16 BRMIN [14-20 BRMIN] (02/27/17 3:48 PM) Peripheral Pulse 79 bpm Rate [60-100 bpm] (02/27/17 3:48 PM) Weight 69.545 kg (02/27/17 3:48 PM) Body Mass Index 20.79 m2 (02/27/17 3:48 PM) Problem List Condition Effective Dates Status [...] tetanus-diphtheria toxoids3 09/12/04 Given 1Result Comment: boostrix [[id number]]. Migrated from OBS ; Data migrated from [...] Substance Abuse Use: None. Employment/School Status: Employed. 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 Operates [employer] equipment: Yes. Workplace hazards: Heavy lifting/twisting. Alcohol [...]
--- OUTSIDE RECORDS SUMMARY | 2019-10-16 14:39 | XMS REPORT | Continuity of Care Document ---
Author Author [facility] Address Unknown Phone Unavailable Care Team Providers Care Lab Instructor Name Role Phone MD Shanell, Jh SINGH Unavailable Insurance Providers Payer name Policy type / Coverage type Policy ID Covered republican ID Policy [place] Encounters Encounter Performer Location Date Lab Report Jh Reece MD [facility] Dec 05, 2013 Allergies, Adverse Reactions, Alerts Type Substance Reaction Status Drug allergy CARRIE INHIBITORS Active Problems Problem Effective Dates Problem Status HTN Active 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[birth year], 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 GERD Active BARRETTS ESOPHAGUS Active ARTHRITIS Active NEVUS, NON-NEOPLASTIC Dec 05, 2013 Active Procedures Date Description Comments Dec 05, 2013 smoking status Current every day sm oker Dec 05, 2013 smoking/tobacco cessation, patient educa tion and counseling yes Medications Medication Instructions Start Date Status AVALIDE 150-12.5 MG TABS Take 1 po daily Nov 24, 2012 Active MOBIC 7.5 MG TABS Take one tablet by mouth once daily as needed Dec 05, 2013 Active NEXIUM 20 MG CPDR Take one tablet by mouth once daily as needed Dec 05, 2013 Active BC FAST PAIN RELIEF 845-65 MG PACK Ingest one pack once vazquez y as needed Dec 05, 2013 Active Immunizations Vaccine Date Status influenza immunization (Flu Vax) has been administered Dec 162011 completed influenza immunization (Flu Vax) has been administered Dec 162011 completed dT (Diphtheria and Tetanus) booster given Sep 12, 2004 completed dT (Diphtheria and Tetanus) immunization for children, #1 Ju n 2004 completed Vital Signs Date Description Test Result Dec 05, 2013 height E&M - 8302-2 HEIGHT 72 in Dec 05, 2013 weight E&M - 3141-9 WEIGHT 167 lb Dec 05, 2013 temperature E&M TEMPERATURE 97.7 deg f Dec 05, 2013 respiratory rate E&M - 9279-1 RESP RATE 12 /min Dec 05, 2013 pulse rate E&M - 8867-4 PULSE RATE 60 /min Dec 05, 2013 blood pressure, systolic - 8480-6 BP SYSTOLIC 124 mm Hg Dec 05, 2013 blood pressure, diastolic - 8462-4 BP DIASTOLIC 78 mm Hg Results Date Description Test Name Value Reference Interpretation Sta tus Dec 05, 2013 hemoglobin, blood HGB 15.6 g/dL 14.0-18.0 Dec 05, 2013 hematocrit, blood HCT 46.3 % 42.0-54.0 Dec 05, 2013 platelet count PLATELETS 211 K/CMM /mm3 133-450 Dec 05, 2013 urine color UA COLOR Colorless null Yellow Dec 05, 2013 hemoglobin A1C, blood, as % of total hemoglobin HGBA1C 5.3 % <=5.6 Dec 05, 2013 cholesterol, serum CHOLESTEROL 180 mg/dl <=199 Dec 05, 2013 triglyceride, serum, fasting TRIGLYCERIDE 51 mg/dl <=149 Dec 05, 2013 HDL cholesterol, serum HDL 87 mg/dl >=61 Dec 05, 2013 LDL cholesterol, serum LDL 83 mg/dl <=99 Dec 05, 2013 sodium, serum SODIUM 138 MEQ/L mmol/L 135-145 Dec 05, 2013 potassium, serum POTASSIUM 4.1 MEQ/L mmol/L 3.5-5.1 Dec 05, 2013 creatinine, serum CREATININE 0.9 mg/dL 0.5-1.4 Dec 05, 2013 urea nitrogen, blood BUN 15 mg/dL 7-22 Dec 05, 2013 urea nitrogen/creatinine ratio, serum BUN/CREAT 17 null 6-25 Dec 05, 2013 albumin, serum ALBUMIN 3.9 g/dL 3.5-5.0 Dec 05, 2013 calcium, serum CALCIUM 8.9 mg/dL 8.5-10.5 Dec 05, 2013 alanine aminotransferase (SGPT), serum SGPT (ALT) 29 U/L 0-65 Dec 05, 2013 aspartate aminotransferase (SGOT), serum SGOT (AST) 31 U/ L 0-37 Dec 05, 2013 alkaline phosphatase, serum ALK PHOS 96 U/L 39-136 Dec 05, 2013 ferritin, serum FERRITIN 35 ng/mL 22-275 Dec 05, 2013 iron, serum IRON 174 ug/dL 45-160 High
--- OUTSIDE RECORDS SUMMARY | 2019-10-16 14:39 | XMS REPORT | Summary of Care ---
Author Author [facility] [place] Organization [facility] [place] Address Unknown Phone Unavailable Care Team Providers Care Cement Sprayer Helper Name Role Phone Jh Reece PCP Encounter HQ Encntr_alias(FIN) [phone] Date(s): 08/11/19 - 08/12/19 [facility] [place] [address] [place] [address]- Vital Signs No data available for this [...] Medications hydrochlorothiazide-irbesartan 12.5 mg-150 mg oral tablet 1 tab, PO, Daily, DUE FOR APPOINTMENT., # 90 tab, 1 Refill(s), Pharmacy: [id number] Start Date: 08/11/19 Status: Ordered NexIUM 40 mg oral delayed release capsule 40 mg = 1 cap, PO, Daily, # 90 cap, 1 Refill(s), Pharmacy: [facility] #[id number] Start Date: 08/11/19 Status: Ordered Results No data available for this section Immunizations Given and Recorded Vaccine Date Status Refusal Reason diphtheria/pertussis, acel/tetanus adult1 12/05/13 Given Hx influenza vaccine-unspecified2 01/02/12 Give n tetanus-diphtheria toxoids3 09/12/04 Given 1Result Comment: boostrix [[id number]]. Migrated from OBS ; Data migrated from [employer] on 04/19/2015. 2Result Comment: fluvax. Migrated from OBS ; Data migrated from [employer] on 04/19/2015. 3Result Comment: td. Migrated from OBS ; Data migrated from [employer] on 04/19/2015. Procedures Procedure Date Related Diagnosis Body Site Status Colonoscopy 01/22/18 Completed Esophagogastroduodenoscopy Completed Manipulation of deviated nasal septum Completed Social History Social History Type Response Alcohol Current, Type Beer. Freque ncy: Daily. 3 Drinks/Episode average. 4.00 Drinks/Episode maximum. Employment/School Status: Employed. 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 Operates [employer] equipment: Yes. Workplace hazards: Heavy lifting/twisting. Substance [...]
--- OUTSIDE RECORDS SUMMARY | 2019-10-16 14:39 | XMS REPORT | Continuity of Care Document ---
Author Author [facility] Address Unknown Phone Unavailable Care Team Providers Care Editor & Co Founder Name Role Phone MD Shanell, Jh SINGH Unavailable Insurance Providers Payer name Policy type / Coverage type Policy ID Covered alliance party ID Policy [place]) [place] Encounters Encounter Performer Location Date Lab Report Jh Reece MD [facility] Oct 27, 2014 Allergies, Adverse Reactions, Alerts Type Substance Reaction [...] platelet count PLATELETS 211 K/CMM /mm3 133-450 Oct 27, 2014 hemoglobin, blood HGB 14.4 g/dL 14.0-18.0 Oct 27, 2014 hematocrit, blood HCT 42.5 % 42.0-54.0 Oct 27, 2014 platelet count PLATELETS 221 K/CMM /mm3 133-450 Dec 05, 2013 urine [...] iron, serum IRON 174 ug/dL 45-160 High Oct 27, 2014 sodium, serum SODIUM 139 MEQ/L mmol/L 135-145 Oct 27, 2014 potassium, serum POTASSIUM 3.8 MEQ/L mmol/L 3.5-5.1 Oct 27, 2014 creatinine, serum CREATININE 0.8 mg/dL 0.5-1.4 Oct 27, 2014 urea nitrogen, blood BUN 20 mg/dL -Oct 27, 2014 urea nitrogen/creatinine ratio, serum BUN/CREAT 25 null 6-25 Oct 27, 2014 albumin, serum ALBUMIN 4.0 g/dL 3.5-5.0 Oct 27, 2014 calcium, serum CALCIUM 8.5 mg/dL 8.5-10.5 Oct 27, 2014 alanine aminotransferase (SGPT), serum SGPT (ALT) 33 U/L 0-65 Oct 27, 2014 aspartate aminotransferase (SGOT), serum SGOT (AST) 37 U/ L 0-37 Oct 27, 2014 alkaline phosphatase, serum ALK PHOS 101 U/L 39-136 Oct 27, 2014 iron, serum IRON 239 ug/dL 45-160 High Oct 27, 2014 iron binding capacity, total TIBC 293 ug/dL 228-428 Oct 27, 2014 ferritin, serum FERRITIN 27 ng/mL 275
--- OUTSIDE RECORDS SUMMARY | 2019-10-16 14:39 | XMS REPORT | Summary of Care ---
Author Author [facility] Spine Clinic [facility] Organization [facility] Address Unknown Phone Unavailable Encounter MARY JO Castelan(FIN) [id number] Date(s): 02/19/17 - 02/20/17 [facility] Spine [facility] [address] [facility] [address] [phone] Vital Signs No data available for this [...] tetanus-diphtheria toxoids3 09/12/04 Given 1Result Comment: boostrix [[id number]]. Migrated from OBS ; Data migrated from [employer] on 04/19/2015. 2Result Comment: fluvax. Migrated from OBS ; Data migrated from [employer] on 04/19/2015. 3Result Comment: td. Migrated from OBS ; Data migrated from [employer] on 04/19/2015. Procedures Procedure Date Related Diagnosis Body Site Esophagogastroduodenoscopy Manipulation of deviated nasal septum Social History Social History Type Response Substance Abuse Use: None. Employment/School Status: Employed. 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 Operates [employer] equipment: Yes. Workplace hazards: Heavy lifting/twisting. Alcohol [...]
--- OUTSIDE RECORDS SUMMARY | 2019-10-16 14:39 | XMS REPORT | Summary of Care ---
Author Author [facility] [place] Organization [facility] [place] Address Unknown Phone Unavailable Care Team Providers Care Director Electronics Name Role Phone Jh Reece PCP Encounter HQ Encntr_alias(FIN) [phone] Date(s): 01/24/18 - 01/25/18 [facility] [place] [address] [place] [address]- Vital Signs No data available for this [...] tetanus-diphtheria toxoids3 09/12/04 Given 1Result Comment: boostrix [[id number]]. Migrated from OBS ; Data migrated from [employer] on 04/19/2015. 2Result Comment: fluvax. Migrated from OBS ; Data migrated from [employer] on 04/19/2015. 3Result Comment: td. Migrated from OBS ; Data migrated from [employer] on 04/19/2015. Procedures Procedure Date Related Diagnosis Body Site Status Colonoscopy 01/22/18 Completed Esophagogastroduodenoscopy Completed Manipulation of deviated nasal septum Completed Social History Social History Type Response Substance Abuse Use: None. Employment/School Status: Employed. 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 Operates [employer] equipment: Yes. Workplace hazards: Heavy lifting/twisting. Alcohol [...]
--- OUTSIDE RECORDS SUMMARY | 2019-10-16 14:39 | XMS REPORT | Summary of Care ---
Author Author [facility] Organization [facility] Address Unknown Phone Unavailable Encounter HQ Annelise(FIN) [phone] Date(s): 08/30/16 - 09/28/16 [facility] Discharge Disposition: Home or Self Care Attending Physician: Lopez Paez MD Vital Signs No data available for [...] tetanus-diphtheria toxoids3 09/12/04 Given 1Result Comment: boostrix [[id number]]. Migrated from OBS ; Data migrated from [employer] on 04/19/2015. 2Result Comment: fluvax. Migrated from OBS ; Data migrated from [employer] on 04/19/2015. 3Result Comment: td. Migrated from OBS ; Data migrated from [employer] on 04/19/2015. Procedures Procedure Date Related Diagnosis Body Site Esophagogastroduodenoscopy Manipulation of deviated nasal septum Social History Social History Type Response Substance Abuse Use: None. Employment/School Status: Employed. 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 Operates [employer] equipment: Yes. Workplace hazards: Heavy lifting/twisting. Alcohol Current, Type Beer. Freque ncy: Daily. 3 Drinks/Episode average. 4.00 Drinks/Episode maximum. Smoking Status Current every day smoker; T ype: Cigarettes; Tobacco use per day: 20; Started at age: 21.0; Lives with someon e who smokes; Cigarette Smoking Last 365 Days Yes; Reg Smoking Cessation Cou nseling Yes Assessment and Plan No data available for this section
--- OUTSIDE RECORDS SUMMARY | 2019-10-16 14:39 | XMS REPORT | Summary of Care ---
Author Author [facility] [place] Organization [facility] [place] Address Unknown Phone Unavailable Encounter HQ Melissa_cristhian(FIN) [phone] Date(s): 09/14/19 - 09/14/19 [facility] [place] [address] [place] [address]- [phone] Discharge Disposition: Home or Self Care Attending Physician: Jh Reece MD Vital Signs Most recent to 1 oldest [Reference Range]: Height 182.88 cm (09/14/19 10:17 AM) Temperature Oral 97.9 DegF [96.4-99.1 DegF] (09/14/19 10:17 AM) Blood Pressure 150/81 mmHg [90-140/60-90 mmHg] *HI* (09/14/19 10:17 AM) Peripheral Pulse 64 bpm Rate [60-100 bpm] (09/14/19 10:17 AM) Weight 69.818 kg (09/14/19 10:17 AM) Body Mass Index 20.88 m2 (09/14/19 10:17 AM) Problem List Condition Effective Dates Status [...] 10/14/14. Originally documented as [facility] [employer]. Medications pantoprazole 40 mg oral enteric coated tablet 0 Refill(s) Start Date: 09/14/19 Status: Ordered Results Most recent to 1 oldest [Reference Range]: Neutrophils # 4446 Cells/uL [3676-2726 Cells/uL] *N* (09/14/19 10:44 AM) Lymphocytes # 1417 Cells/uL [850-3900 Cells/uL] *N* (09/14/19 10:44 AM) Monocytes # [200-950 488 Cells/uL Cells/uL] *N* (09/14/19 10:44 AM) Eosinophils # 130 Cells/uL [15-500 Cells/uL] *N* (09/14/19 10:44 AM) Basophils # [0-200 20 Cells/uL Cells/uL] *N* (09/14/19 10:44 AM) Result 3 (Urine NO CULTURE INDICATED Culture) (09/14/19 10:44 AM) eGFR NON-AFR. 98 mL/min/1.73m2 CZECH [> OR = 60 *N* mL/min/1.73m2] (09/14/19 10:44 AM) eGFR 113 mL/min/1.73m2 CZECH [> OR = 60 *N* mL/min/1.73m2] (09/14/19 10:44 AM) A/G Ratio [1.0-2.5 1.7 (CALC) (CALC)] *N* (09/14/19 10:44 AM) Albumin Lvl [3.6-5.1 4.1 g/dL g/dL] *N* (09/14/19 10:44 AM) Alk Phos [35-144 88 unit/L unit/L] *N* (09/14/19 10:44 AM) ALT [9-46 unit/L] 16 unit/L *N* (09/14/19 10:44 AM) AST [10-35 unit/L] 20 unit/L *N* (09/14/19 10:44 AM) B/C Ratio [6-22] NOT APPLICABLE (09/14/19 10:44 AM) Basophils 0.3 % *N* (09/14/19 10:44 AM) BUN [7-25 mg/dL] 10 mg/dL *N* (09/14/19 10:44 AM) Calcium Lvl 9.5 mg/dL [8.6-10.3 mg/dL] *N* (09/14/19 10:44 AM) Chloride Lvl [98-110 105 mMol/L mMol/L] *N* (09/14/19 10:44 AM) CO2 [20-32 mMol/L] 26 mMol/L *N* (09/14/19 10:44 AM) Creatinine Lvl 0.76 mg/dL 1 [0.70-1.25 mg/dL] *N* (09/14/19 10:44 AM) Eosinophils 2.0 % *N* (09/14/19 10:44 AM) Globulin [1.9-3.7 2.4 g/dL g/dL] *N* (09/14/19 10:44 AM) Glucose Lvl [65-99 88 mg/dL 2 mg/dL] *N* (09/14/19 10:44 AM) Hct [38.5-50.0 %] 46.0 % *N* (09/14/19 10:44 AM) Hgb [13.2-17.1 g/dL] 15.3 g/dL *N* (09/14/19 10:44 AM) INR 1.0 3 *N* (09/14/19 10:44 AM) Potassium Lvl 4.0 mMol/L [3.5-5.3 mMol/L] *N* (09/14/19 10:44 AM) Lymphocytes 21.8 % *N* (09/14/19 10:44 AM) MCH [27.0-33.0 pg] 32.6 pg *N* (09/14/19 10:44 AM) MCHC [32.0-36.0 33.3 g/dL g/dL] *N* (09/14/19 10:44 AM) MCV [80.0-100.0 fL] 97.9 fL *N* (09/14/19 10:44 AM) Monocytes 7.5 % *N* (09/14/19 10:44 AM) MPV [7.5-12.5 fL] 10.9 fL *N* (09/14/19 10:44 AM) Sodium Lvl [135-146 140 mMol/L mMol/L] *N* (09/14/19 10:44 AM) Platelet [140-400 256 K/CMM K/CMM] *N* (09/14/19 10:44 AM) Segs 68.4 % *N* (09/14/19 10:44 AM) Total Protein 6.5 g/dL [6.1-8.1 g/dL] *N* (09/14/19 10:44 AM) PT [9.0-11.5 9.9 seconds 4 seconds] *N* (09/14/19 10:44 AM) PTT [22-34 seconds] 31 seconds 5 *N* (09/14/19 10:44 AM) RBC [4.20-5.80 4.70 M/CMM M/CMM] *N* (09/14/19 10:44 AM) RDW [11.0-15.0 %] 11.9 % *N* (09/14/19 10:44 AM) Bili Total [0.2-1.2 1.0 mg/dL mg/dL] *N* (09/14/19 10:44 AM) UA Bacteria [NONE NONE SEEN SEEN] *N* (09/14/19 10:44 AM) UA Bili NEGATIVE [NEGATIVE-NEGATIVE] *N* (09/14/19 10:44 AM) UA Blood NEGATIVE [NEGATIVE-NEGATIVE] *N* (09/14/19 10:44 AM) UA Color [YELLOW] YELLOW 6 *N* (09/14/19 10:44 AM) UA Glucose NEGATIVE [NEGATIVE-NEGATIVE] *N* (09/14/19 10:44 AM) UA Hyal Cast [NONE NONE SEEN SEEN] *N* (09/14/19 10:44 AM) UA Ketones NEGATIVE [NEGATIVE-NEGATIVE] *N* (09/14/19 10:44 AM) UA Leuk Est NEGATIVE [NEGATIVE-NEGATIVE] *N* (09/14/19 10:44 AM) UA Nitrite NEGATIVE [NEGATIVE-NEGATIVE] *N* (09/14/19 10:44 AM) UA pH [5.0-8.0] 6.5 *N* (09/14/19 10:44 AM) UA Protein NEGATIVE [NEGATIVE-NEGATIVE] *N* (09/14/19 10:44 AM) UA RBC [< OR = 2] NONE SEEN *N* (09/14/19 10:44 AM) UA Spec Grav 1.007 [1.001-1.035] *N* (09/14/19 10:44 AM) UA Sq Epi [< OR = 5] NONE SEEN *N* (09/14/19 10:44 AM) UA Turbidity [CLEAR] CLEAR *N* (09/14/19 10:44 AM) UA WBC [< OR = 5] NONE SEEN *N* (09/14/19 10:44 AM) WBC [3.8-10.8 K/CMM] 6.5 K/CMM 7 *N* (09/14/19 10:44 AM) 1Result Comment: For patients >49 years of age, the reference limit for Creatinine is approximately 13% higher for people identified as -Indian. 2Result Comment: Fasting reference interval Lab [facility] performed by: [facility] [address] [place] [address] Julio Gaston 3Result Comment: Reference Range 0.9-1.1 Moderate-intensity Warfarin Therapy 2.0-3.0 Higher-intensity Warfarin Therapy 3.0-4.0 Lab test performed by: [facility] [address] [place] [address] Julio Gaston 4Result Comment: For more information on this test, go to: http://Ailola.prettysecrets/faq/VRK135 5Result Comment: This test has not been validated for monitoring unfractionated heparin therapy. For testing that is validated for this type of therapy, please refer to the Heparin Anti-Xa assay (test code 68400). For additional information, please refer to http://education.NetEffect.zoomsquare/faq/SRY087 (This link is being provided for informational/educational purposes only.) Lab test performed by: [facility] [address] [place] [address] Julio Gaston 6Result Comment: Lab test performed by: [facility] [address] [place] [address] Julio Gaston 7Result Comment: Lab test performed by: [facility] [address] [place] [address] Julio Gaston Immunizations Given and Recorded Vaccine Date Status Refusal Reason diphtheria/pertussis, acel/tetanus adult1 12/05/13 Given Hx influenza vaccine-unspecified2 01/02/12 Give n tetanus-diphtheria toxoids3 09/12/04 Given 1Result Comment: boostrix [[id number]]. Migrated from OBS ; Data migrated from [employer] on 04/19/2015. 2Result Comment: fluvax. Migrated from OBS ; Data migrated from [employer] on 04/19/2015. 3Result Comment: td. Migrated from OBS ; Data migrated from [employer] on 04/19/2015. Procedures Procedure Date Related Diagnosis Body Site Status Destruction (eg, laser surgery, 09/14/19 Comple manuel electrosurgery, cryosurgery, chemosurge ry, surgical curettement), premalignant les ions (eg, actinic keratoses); first lesion Destruction (eg, laser surgery, 09/14/19 Comple manuel electrosurgery, cryosurgery, chemosurge ry, surgical curettement), premalignant les ions (eg, actinic keratoses); second through 14 lesions, each (List separately in addit ion to code for first lesion) Colonoscopy 01/22/18 Completed Esophagogastroduodenoscopy Completed Manipulation of deviated nasal septum Completed Social History Social History Type Response Alcohol Current, Type Beer. Freque ncy: Daily. 3 Drinks/Episode average. 4.00 Drinks/Episode maximum. Employment/School Status: Employed. 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 Operates [employer] equipment: Yes. Workplace hazards: Heavy lifting/twisting. Substance [...]
--- OUTSIDE RECORDS SUMMARY | 2019-10-16 14:39 | XMS REPORT | Summary of Care ---
Author Author [facility] Outpatient Imaging [facility] Address Unknown Phone Unavailable Encounter HQ Annelise(FIN) [phone] Date(s): 07/04/16 - 07/04/16 [facility] Outpatient Imaging [place] [address] [place] [address], [address] [place] [address]- [phone] Discharge Disposition: Home or Self Care Attending [...] tetanus-diphtheria toxoids3 09/12/04 Given 1Result Comment: boostrix [[id number]]. Migrated from OBS ; Data migrated from [employer] on 04/19/2015. 2Result Comment: fluvax. Migrated from OBS ; Data migrated from [employer] on 04/19/2015. 3Result Comment: td. Migrated from [employer] ; Data migrated from [employer] on 04/19/2015. Procedures Procedure Date Related Diagnosis Body Site Manipulation of deviated nasal septum Social History Social History Type Response Substance Abuse Use: None. Employment/School Status: Employed. 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 Operates [employer] equipment: Yes. Workplace hazards: Heavy lifting/twisting. Alcohol [...]
--- OUTSIDE RECORDS SUMMARY | 2019-10-16 14:39 | XMS REPORT | Continuity of Care Document ---
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
--- OUTSIDE RECORDS SUMMARY | 2019-10-16 14:39 | XMS REPORT | Summary of Care ---
Author Author [facility] Organization [facility] Address Unknown Phone Unavailable Encounter MARY JO Castelan(SHAMAR) [id number] Date(s): 08/01/16 - 08/02/16 [facility] [address] [place] [address]- [phone] Discharge Disposition: Home or Self Care Attending Physician: Lopez Paez MD Admitting Physician: Lopez Paez MD Referring Physician: Lopez Paez MD Vital Signs 1 2 3 Most recent to oldest [Reference Range]: 182.88 cm (08/01/16 3:38 PM) 182.88 cm (07/25/16 7:03 AM) Height 97.7 DegF (08/02/16 12:22 PM) 98.1 DegF (08/02/16 7:16 AM) 97.8 DegF (08/02/16 4:31 AM) Temperature Oral [96.4-99.1 DegF] 137/79 mmHg (08/02/16 12:22 PM) 155/93 mmHg *HI* (08/02/16 7:16 AM) 142/78 mmHg *HI* (08/02/16 4:31 AM) Blood Pressure [90-140/60-90 mmHg] 17 BRMIN (08/02/16 12:22 PM) 16 BRMIN (08/02/16 7:16 AM) 16 BRMIN (08/02/16 4:31 AM) Respiratory Rate [14-20 BRMIN] 67 bpm (08/02/16 12:22 PM) 67 bpm (08/02/16 7:16 AM) 57 bpm *LOW* (08/02/16 4:31 AM) Peripheral Pulse Rate [60-100 bpm] 77.273 kg (08/01/16 3:38 PM) 76.364 kg (07/25/16 7:03 AM) Weight 23.1 m2 (08/01/16 3:38 PM) 22.83 m2 (07/25/16 7:03 AM) Body Mass Index Problem List Condition Effective Dates Status Health [...] 10/14/14. Originally documented as [employer]. Medications acetaminophen (ANES) (ANES) Route: IV, Drug form: INJ, Start date: 08/01/16 8:21:00 CDT, Stop date: 08/01/16 9:21:00 CDT Start Date: 08/01/16 Stop Date: 08/01/16 Status: Completed acetaminophen-hydrocodone 325 mg-5 mg oral tablet 1 tab, Route: PO, Drug Form: TAB, Dosing Weight 76.364, kg, Q4H, PRN Pain Score 1-3, Start date: 08/01/16 11:14:00 CDT, Duration: 30 day, Stop date: 08/31/16 11 :13:00 CDT Notes: (Same as: [place] 325/5) Do not exceed 4gm/day of acetaminophen. Start Date: 08/01/16 Stop Date: 08/02/16 Status: Discontinued acetaminophen-hydrocodone 325 mg-5 mg oral tablet 1 tab, Route: PO, Drug Form: TAB, Dosing Weight 76.364, kg, Q4H, PRN Pain, Start date: 08/01/16 11:14:00 CDT, Duration: 30 day, Stop date: 08/31/16 11:13:00 CDT Start Date: 08/01/16 Stop Date: 08/01/16 Status: Deleted ANES flumazenil 0.2 mg, Route: IVP, PRN, Dosing Weight 76.364, kg, PRN Benzodiazepine Reversal, Initial dose, Start date: 08/01/16 11:25:00 CDT, Duration: 30 day, Stop date: 11:24:00 CDT Start Date: 08/01/16 Stop Date: 08/01/16 Status: Discontinued ANES hydrALAZINE 10 mg, Route: IVP, Q20Min, Dosing Weight 76.364, kg, PRN Elevated BP, Start date : 08/01/16 11:25:00 CDT, Duration: 2 doses or times, Stop date: Limited # of yifan es Start Date: 08/01/16 Stop Date: 08/01/16 Status: Discontinued ANES HYDROmorphone 0.5 mg, Route: IVP, Q5Min, Dosing Weight 76.364, kg, PRN Pain Score 7-10, Start date: 08/01/16 11:25:00 CDT, Duration: 4 doses or times, Stop date: Limited # of times Start Date: 08/01/16 Stop Date: 08/01/16 Status: Discontinued ANES labetalol 10 mg, Route: IVP, Q5Min, Dosing Weight 76.364, kg, PRN Elevated BP, Start date: 08/01/16 11:25:00 CDT, Duration: 5 doses or times, Stop date: Limited # of times Start Date: 08/01/16 Stop Date: 08/01/16 Status: Discontinued ANES morphine Sulfate 2 mg, Route: IVP, Q5Min, Dosing Weight 76.364, kg, PRN Pain Score 4-6, Start alfredito e: 08/01/16 11:25:00 CDT, Duration: 5 doses or times, Stop date: Limited # of ti mes Start Date: 08/01/16 Stop Date: 08/01/16 Status: Discontinued ANES naloxone 0.4 mg, Route: IVP, Q2MIN, Dosing Weight 76.364, kg, PRN Narcotic Reversal, Star t date: 08/01/16 11:25:00 CDT, Duration: 8 doses or times, Stop date: Limited # of times Start Date: 08/01/16 Stop Date: 08/01/16 Status: Discontinued ANES ondansetron 4 mg, Route: IVP, ONCE, Dosing Weight 76.364, kg, PRN Nausea & Vomiting, Start date: 08/01/16 11:25:00 CDT Start Date: 08/01/16 Stop Date: 08/01/16 Status: Discontinued Avalide 150 mg-12.5 mg oral tablet 1 tab, Route: PO, Drug Form: TAB, Dosing Weight 76.364, kg, Daily, Start date: 0 08/02/16 9:00:00 CDT, Duration: 30 day, Stop date: 08/31/16 9:00:00 CDT Start Date: 08/02/16 Stop Date: 08/01/16 Status: Deleted Avapro 150 mg, 1 tab, Route: PO, Drug form: TAB, Daily, Start date: 08/02/16 9:00:00 CD T, Duration: 30 day, Stop date: 08/31/16 9:00:00 CDT Notes: (Same as:Avapro) Start Date: 08/02/16 Stop Date: 08/02/16 Status: Discontinued ceFAZolin (ANES) (ANES) Route: IV, Drug form: INJ, Start date: 08/01/16 8:11:00 CDT, Stop date: 08/01/16 9:11:00 CDT Start Date: 08/01/16 Stop Date: 08/01/16 Status: Completed ceFAZolin (SCIP) 1 gm, 100 mL, Route: IVPB, Drug form: INJ, Q8H, Dosing Weight 76.364, kg, Start date: 08/01/16 16:00:00 CDT, Duration: 3 doses or times, Stop date: 08/02/16 8:0 0:00 CDT Start Date: 08/01/16 Stop Date: 08/02/16 Status: Completed Colace 100 mg oral capsule 100 mg, 1 cap, Route: PO, Drug form: CAP, BID, Dosing Weight 76.364, kg, Start d ate: 08/01/16 17:00:00 CDT, Duration: 30 day, Stop date: 08/31/16 9:00:00 CDT Notes: (Same as: Colace) (Do Not Crush) Start Date: 08/01/16 Stop Date: 08/02/16 Status: Discontinued dexamethasone (ANES) Route: IV, Drug form: INJ, ONCE, Stop date: 08/01/16 8:46:00 CDT Start Date: 08/01/16 Stop Date: 08/01/16 Status: Completed Dilaudid 1 mg, 1 mL, Route: IV, Drug form: INJ, Q3H, Dosing Weight 76.364, kg, PRN Pain S core 7-10, Start date: 08/01/16 11:14:00 CDT, Duration: 30 day, Stop date: 08/31 11:13:00 CDT Start Date: 08/01/16 Stop Date: 08/02/16 Status: Discontinued Dilaudid 0.5 mg, 0.5 mL, Route: IV, Drug form: INJ, Q3H, Dosing Weight 76.364, kg, PRN Pa in Score 4-6, Start date: 08/01/16 11:14:00 CDT, Duration: 30 day, Stop date: 11:13:00 CDT Start Date: 08/01/16 Stop Date: 08/02/16 Status: Discontinued ePHEDrine (ANES) Route: IV, Drug form: INJ, ONCE, Stop date: 08/01/16 8:46:00 CDT Start Date: 08/01/16 Stop Date: 08/01/16 Status: Completed fentaNYL 50 microgram, Route: IVP, ONCE, Dosing Weight 76.364, kg, Start date: 08/01/16 1 1:48:00 CDT, Stop date: 08/01/16 11:48:00 CDT Start Date: 08/01/16 Stop Date: 08/01/16 Status: Completed fentaNYL (ANES) Route: IV, Drug form: INJ, ONCE, Stop date: 08/01/16 8:46:00 CDT Start Date: 08/01/16 Stop Date: 08/01/16 Status: Completed heparin 5000 units/mL injectable solution 5,000 unit, 1 mL, Route: SUB-Q, Drug form: INJ, Q12H, Dosing Weight 76.364, kg, Start date: 08/02/16 8:00:00 CDT, Duration: 30 day, Stop date: 08/31/16 21:00:00 CDT Notes: porcine heparin Start Date: 08/02/16 Stop Date: 08/02/16 Status: Discontinued hydrochlorothiazide 25 mg oral tablet 12.5 mg, 0.5 tab, Route: PO, Drug form: TAB, Daily, Start date: 08/02/16 9:00:00 CDT, Duration: 30 day, Stop date: 08/31/16 9:00:00 CDT Notes: (Same as: Hydrodiuril) With food. Start Date: 08/02/16 Stop Date: 08/02/16 Status: Discontinued Lactated Ringers Injection IV 1000 mL 1,000 mL, Rate: 25 ml/hr, Infuse over: 40 hr, Route: IV, Dosing Weight 76.364 kg , Total Volume: 1,000, Start date: 08/01/16 7:41:00 CDT, Duration: 30 day, Stop date: 08/31/16 7:40:00 CDT Start Date: 08/01/16 Stop Date: 08/01/16 Status: Discontinued lidocaine (ANES) Route: IV, Drug form: INJ, ONCE, Stop date: 08/01/16 8:46:00 CDT Start Date: 08/01/16 Stop Date: 08/01/16 Status: Completed LR 1000 mL INJ (ANES) Route: IV, Total Volume: 1,000, Start date: 08/01/16 7:39:00 CDT, Stop date: 8:39:00 CDT Start Date: 08/01/16 Stop Date: 08/01/16 Status: Completed magnesium citrate 300 ml, Route: PO, Drug Form: LIQ, Dosing Weight 76.364, kg, ONCE, PRN Constipat ion, Start date: 08/01/16 11:14:00 CDT Notes: (Same as: Citrate of Magnesia)Concentration: 1.745 gm / 30 mL Start Date: 08/01/16 Stop Date: 08/02/16 Status: Discontinued midazolam (ANES) Route: IV, Drug form: SOLN, ONCE, Stop date: 08/01/16 8:46:00 CDT Start Date: 08/01/16 Stop Date: 08/01/16 Status: Completed NexIUM 40 mg oral delayed release capsule 40 mg = 1 cap, PO, Daily, # 30 cap, 0 Refill(s) Start Date: 07/25/16 Status: Ordered Nicoderm C-Q Clear 21 mg/24 hr transdermal film, extended release = 1 patch, TOP, Daily, X 28 day, # 28 patch, 0 Refill(s) Start Date: 08/02/16 Stop Date: 08/30/16 Status: Ordered nicotine 21 mg, 1 patch, Route: TOP, Drug form: ERFILM, Daily, Dosing Weight 77.273, kg, Start date: 08/01/16 18:00:00 CDT, Duration: 30 day, Stop date: 08/30/16 18:00:0 0 CDT Notes: (Same as: Habitrol)"Remove old patch before application of new patch"WAST E: F/P - P Waste Black; E - P Waste Black Start Date: 08/01/16 Stop Date: 08/02/16 Status: Discontinued [place] 10/325 oral tablet 1 tab, PO, Q4H, PRN Pain Score 1-3, # 60 tab, 0 Refill(s), given to patient Start Date: 08/02/16 Stop Date: 08/02/17 Status: Ordered [place] 10/325 oral tablet 1 tab, Route: PO, Drug Form: TAB, Dosing Weight 77.273, kg, Q4H, PRN Pain Score 1-3, Start date: 08/02/16 7:48:00 CDT, Stop date: 09/01/16 7:47:00 CDT Notes: Do not exceed 4gm/day of acetaminophen. (Same as: [place] 325/10) Start Date: 08/02/16 Stop Date: 08/02/16 Status: Discontinued ondansetron (ANES) Route: IV, Drug form: INJ, ONCE, Stop date: 08/01/16 8:46:00 CDT Start Date: 08/01/16 Stop Date: 08/01/16 Status: Completed Pepcid 20 mg oral tablet 20 mg, 1 tab, Route: PO, Drug form: TAB, Q12H, Dosing Weight 76.364, kg, Start d ate: 08/01/16 21:00:00 CDT, Duration: 30 day, Stop date: 08/31/16 9:00:00 CDT Notes: (Same as: Pepcid) Start Date: 08/01/16 Stop Date: 08/02/16 Status: Discontinued propofol (ANES) Route: IV, Drug form: INJ, ONCE, Stop date: 08/01/16 8:46:00 CDT Start Date: 08/01/16 Stop Date: 08/01/16 Status: Completed remove patch 1 patch, Route: TOP, Drug form: ERFILM, Daily, Start date: 08/02/16 18:00:00 CDT , Duration: 30 day, Stop date: 08/31/16 18:00:00 CDT Notes: Remove old patch before application of new patch.WASTE: F/P - P Waste Bandar ck; E - P Waste Black Start Date: 08/02/16 Stop Date: 08/02/16 Status: Canceled rocuronium (ANES) Route: IV, Drug form: INJ, ONCE, Stop date: 08/01/16 8:46:00 CDT Start Date: 08/01/16 Stop Date: 08/01/16 Status: Completed Senokot 17.2 mg, 2 tab, Route: PO, Drug Form: TAB, Dosing Weight 76.364, kg, Daily, Star t date: 08/02/16 9:00:00 CDT, Duration: 30 day, Stop date: 08/31/16 9:00:00 CDT Notes: (Same as: Senokot) Start Date: 08/02/16 Stop Date: 08/02/16 Status: Discontinued sodium chloride 0.9% 1000 ml INJ 1,000 mL 1,000 mL, Rate: 75 ml/hr, Infuse over: 13.3 hr, Route: IV, Dosing Weight 76.364 kg, Total Volume: 1,000, Start date: 08/01/16 11:14:00 CDT, Duration: 30 day, St op date: 08/31/16 11:13:00 CDT Start Date: 08/01/16 Stop Date: 08/02/16 Status: Discontinued Tylenol 650 mg, 2 tab, Route: PO, Drug form: TAB, Q4H, Dosing Weight 76.364, kg, PRN Valentino n 1-3/Temp > 100.4 F, Start date: 08/01/16 11:14:00 CDT, Duration: 30 day, Stop date: 08/31/16 11:13:00 CDT Notes: Do not exceed 4 gm/day. (Same as: Tylenol) Start Date: 08/01/16 Stop Date: 08/02/16 Status: Discontinued Zofran 4 mg, 2 mL, Route: IV, Drug form: INJ, Q8H, Dosing Weight 76.364, kg, PRN Nausea , Start date: 08/01/16 11:14:00 CDT, Duration: 30 day, Stop date: 08/31/16 11:13 :00 CDT Notes: (Same as: Zofran) MEDICATION WASTE Product Size: 4 mgProduct Was manuel: ___ mg Start Date: 08/01/16 Stop Date: 08/02/16 Status: Discontinued Results BLOOD BANK RESULTS Most recent to 1 oldest [Reference Range]: ABO/Rh O POS *Unknown* (07/25/16 7:39 AM) Antibody Scrn Negative (07/25/16 7:39 AM) ELECTROLYTES Most recent to 1 oldest [Reference Range]: Sodium Lvl [135-145 138 mEq/L mEq/L] (07/25/16 7:39 AM) Potassium Lvl 3.9 mEq/L [3.5-5.1 mEq/L] (07/25/16 7:39 AM) Chloride Lvl [95-109 103 mEq/L mEq/L] (07/25/16 7:39 AM) CO2 [24-32 mEq/L] 26 mEq/L (07/25/16 7:39 AM) AGAP [10.0-20.0 12.9 mEq/L mEq/L] (07/25/16 7:39 AM) CHEM PANEL Most recent to 1 oldest [Reference Range]: Creatinine Lvl 0.86 mg/dL [0.50-1.40 mg/dL] (07/25/16 7:39 AM) eGFR 95 mL/min/1.73m2 1 *NA* (07/25/16 7:39 AM) BUN [7-22 mg/dL] 18 mg/dL (07/25/16 7:39 AM) B/C Ratio [6-25] 21 (07/25/16 7:39 AM) Glucose Lvl [70-99 101 mg/dL mg/dL] *HI* (07/25/16 7:39 AM) Total Protein 7.0 g/dL [6.4-8.4 g/dL] (07/25/16 7:39 AM) Albumin Lvl [3.5-5.0 3.8 g/dL g/dL] (07/25/16 7:39 AM) Globulin [2.7-4.2 3.2 g/dL g/dL] (07/25/16 7:39 AM) A/G Ratio [0.7-1.6] 1.2 (07/25/16 7:39 AM) Calcium Lvl 8.8 mg/dL [8.5-10.5 mg/dL] (07/25/16 7:39 AM) ALT [0-65 unit/L] 29 unit/L (07/25/16 7:39 AM) AST [0-37 unit/L] 29 unit/L (07/25/16 7:39 AM) Alk Phos [39-136 107 unit/L unit/L] (07/25/16 7:39 AM) Bili Total [0.2-1.3 0.7 mg/dL mg/dL] (07/25/16 7:39 AM) 1Result Comment: The eGFR is calculated using the [...] from the National Kidney Disease Education Program ( NKDEP) which additionally recommends that when the eGFR is used in patients with extremes of body mass index for purposes of drug dosing, the eGFR should be mul tiplied by the estimated BMI. HEMATOLOGY Most recent to 1 oldest [Reference Range]: WBC [3.7-10.4 K/CMM] 8.1 K/CMM (07/25/16 7:39 AM) RBC [4.70-6.10 4.82 M/CMM M/CMM] (07/25/16 7:39 AM) Hgb [14.0-18.0 g/dL] 15.8 g/dL (07/25/16 7:39 AM) Hct [42.0-54.0 %] 45.6 % (07/25/16 7:39 AM) MCV [80.0-94.0 fL] 94.6 fL *HI* (07/25/16 7:39 AM) MCH [27.0-31.0 pg] 32.7 pg *HI* (07/25/16:39 AM) MCHC [32.0-36.0 34.6 g/dL g/dL] (07/25/16 7:39 AM) RDW [11.5-14.5 %] 12.7 % (07/25/16 7:39 AM) Platelet [133-450 232 K/CMM K/CMM] (07/25/16 7:39 AM) MPV [7.4-10.4 fL] 9.3 fL (07/25/16 7:39 AM) Segs [45.0-75.0 %] 76.5 % *HI* (07/25/16 7:39 AM) Lymphocytes 13.2 % [20.0-40.0 %] *LOW* (07/25/16:39 AM) Monocytes [2.0-12.0 8.3 % %] (07/25/16 7:39 AM) Eosinophils [0.0-4.0 1.4 % %] (07/25/16 7:39 AM) Basophils [0.0-1.0 0.6 % %] (07/25/16 7:39 AM) Segs-Bands # 6.2 K/CMM [1.5-8.1 K/CMM] (07/25/16 7:39 AM) Lymphocytes # 1.1 K/CMM [1.0-5.5 K/CMM] (07/25/16 7:39 AM) Monocytes # [0.0-0.8 0.7 K/CMM K/CMM] (07/25/16 7:39 AM) Eosinophils # 0.1 K/CMM [0.0-0.5 K/CMM] (07/25/16 7:39 AM) Basophils # [0.0-0.2 0.1 K/CMM K/CMM] (07/25/16 7:39 AM) PT [12.0-14.7 12.8 seconds seconds] (07/25/16 7:39 AM) INR [0.85-1.17] 0.94 (07/25/16 7:39 AM) PTT [22.9-35.8 28.7 seconds seconds] (07/25/16 7:39 AM) Immunizations Given and Recorded Vaccine Date Status Refusal Reason diphtheria/pertussis, acel/tetanus adult1 12/05/13 Given Hx influenza vaccine-unspecified2 01/02/12 Give n tetanus-diphtheria toxoids3 09/12/04 Given 1Result Comment: boostrix [[id number]]. Migrated from OBS ; Data migrated from [employer] on 04/19/2015. 2Result Comment: fluvax. Migrated from OBS ; Data migrated from [facility] on 04/19/2015. 3Result Comment: td. Migrated from OBS ; Data migrated from [employer] on 04/19/2015. Procedures Procedure Date Related Diagnosis Body Site Esophagogastroduodenoscopy Manipulation of deviated nasal septum Social History Social History Type Response Substance Abuse Use: None. Employment/School Status: Employed. 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 Operates Fuzmous equipment: Yes. Workplace hazards: Heavy lifting/twisting. Alcohol Current, Type Beer. Freque ncy: Daily. 3 Drinks/Episode average. 4.00 Drinks/Episode maximum. Smoking Status Current every day smoker; T ype: Cigarettes; Tobacco use per day: 20; Started at age: 21.0; Lives with someon e who smokes; Cigarette Smoking Last 365 Days Yes; Reg Smoking Cessation Cou nseling Yes Assessment and Plan Extracted from: Title: Clinical Document Author: Peyton Gonzalez NP Date : 08/02/16 Discharge Summary Admit: 08/01/16 discharge: 08/02/16 [...] Slowly waking up from anesthesia O: AFVSS DBTWEFEFFHIIPs H3-6-1-4-4-4-4-4- M0-7-9-4-4-4-4-4- c/d/i drain serosanguinous D/C PLAN: - D/c to home after patient works with P T - prescirption for norco and nicotine pa tch to be given upon discharge - ok to shower, no baths or swimming - f/u in clinic in 2 weeks for postop vi sit Peyton Gonzalez APRN Extracted from: Title: Clinical Document Author: Peyton Gonzalez NP Date : 08/02/16 Neurosurgery Postop Note S: Patient is awake, sitting up in bed. He reports some posterior neck tightness and soreness, but denies severe pain. He reports continued numbness in his hands. O: AFVSS DBTWEFEFFHIIPs F0-7-5-4-4-4-4-4- S9-3-6-4-4-4-4-4- c/d/i drain serosanguinous - 0cc output A/P: POD1 s/p RIGHT approach C4-C6 laminoplasty, partial C7 laminectomy, BILATERAL C5-C6 foraminotomies - neuro stable - SCDs and HSQ for DVT prophylaxis - mobilize, PT/OT - ancef - drain d/c'd - Will discharge to home after PT Peyton Gonzalez APRN I, Lopez Paez, personally evaluated this patient. Extracted from: Title: Clinical Document Author: Lopez Paez MD Date: 08/01/16 PATIENT NAME: MAHSA TYLER DATE OF OPERATION/PROCEDURE: 08/01/2016 *_*_* PREOPERATIVE DIAGNOSIS: 1.Severe cord compression with myelopath y from C4 to C7. 2.Foraminal stenosis C5-C6 bilaterally POSTOPERATIVE DIAGNOSIS: 1.Severe cord compression with myelopath y from C4 to C7. 2.Foraminal stenosis C5-C6 bilaterally PROCEDURES PERFORMED: 1.Posterior midline approach to cervical spine from C4 to C7. 2.Decompression with RIGHT-sided laminop lasty from C4 to C6. 3.BILATERAL foraminomties at C5-C6 4.Partial laminectomy superior C7. 5.Use of microscope for decompression. 6.Segmental posterior instrumentation fr om C4 to C6 using the following devices: iyzico Escalate laminoplasty set. Nancy C4 12 mm (extended) plate lateral mass screws, 2.0*6 mm * 2 laminar screws, 2.0*6 mm * 1 C5 12 mm (extended) plate lateral mass screws, 2.0*6 mm * 2 laminar screws, 2.0*6 mm * 1 C6 12 mm (extended) plate lateral mass screws, 2.0*6 mm * 2 laminar screws, 2.0*6 mm * 1 7.Use of radiographs for vertebral level localization. SURGEON: Lopez Paez MD ADOPTION AGENT: Vitaliy [place] ANESTHESIA: General endotracheal tube anesthesia. [...] field. Laminoplasty was performed with the pneumatic iyzico drill with a matchstick drill, forming 2 [...] interspinous ligament. These were performed with a iyzico pneumatic drill, Kerrison punches, curets. Bone bleeding [...] was copiously irrigated with bacitracin irrigation. A 10-[place] round Hemovac drain was placed underneath the [...]
--- OUTSIDE RECORDS SUMMARY | 2019-10-16 14:39 | XMS REPORT | Summary of Care ---
Author Author [facility] [place] Organization [facility] Address Unknown Phone Unavailable Encounter HQ Melissa_cristhian(FIN) [phone] Date(s): 09/16/19 - 09/17/19 [facility] [place] [address] [place] [address]- Vital Signs No data available for this [...] tetanus-diphtheria toxoids3 09/12/04 Given 1Result Comment: boostrix [[id number]]. Migrated from OBS ; Data migrated from [facility] on 04/19/2015. 2Result Comment: fluvax. Migrated from OBS ; Data migrated from [facility] on 04/19/2015. 3Result Comment: td. Migrated from OBS ; Data migrated from [facility] on 04/19/2015. Procedures Procedure Date Related Diagnosis Body Site Status Colonoscopy 01/22/18 Completed Esophagogastroduodenoscopy Completed Manipulation of deviated nasal septum Completed Social History Social History Type Response Alcohol Current, Type Beer. Freque ncy: Daily. 3 Drinks/Episode average. 4.00 Drinks/Episode maximum. Employment/School Status: Employed. 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 Operates Hemo[employer] equipment: Yes. Workplace hazards: Heavy lifting/twisting. Substance [...]
--- OUTSIDE RECORDS SUMMARY | 2019-10-16 14:39 | XMS REPORT | Summary of Care ---
Author Author [facility] [place] Organization [facility] [place] Address Unknown Phone Unavailable Encounter HQ Melissa_cristhian(FIN) [phone] Date(s): 10/16/18 - 10/17/18 [facility] [place] [address] [place] [address]- Vital Signs No data available for this [...] tetanus-diphtheria toxoids3 09/12/04 Given 1Result Comment: boostrix [[id number]]. Migrated from OBS ; Data migrated from [facility] on 04/19/2015. 2Result Comment: fluvax. Migrated from OBS ; Data migrated from [facility] on 04/19/2015. 3Result Comment: td. Migrated from OBS ; Data migrated from [facility] on 04/19/2015. Procedures Procedure Date Related Diagnosis Body Site Status Colonoscopy 01/22/18 Completed Esophagogastroduodenoscopy Completed Manipulation of deviated nasal septum Completed Social History Social History Type Response Substance Abuse Use: None. Employment/School Status: Employed. 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 Operates [employer] equipment: Yes. Workplace hazards: Heavy lifting/twisting. Alcohol [...]
--- OUTSIDE RECORDS SUMMARY | 2019-10-16 14:39 | XMS REPORT | Summary of Care ---
Author Author [facility] [place] Organization [facility] [place] Address Unknown Phone Unavailable Encounter HQ Melissa_cristhian(FIN) [phone] Date(s): 02/05/19 - 02/06/19 [facility] [place] [address] [place] [address]- Vital Signs No data available for this [...] PO, Daily, # 90 tab, DUE FOR APPOINTMENT., [facility]: [facility] Start Date: 02/05/19 Status: Ordered Results No data available for this section Immunizations Given and Recorded Vaccine Date Status Refusal Reason diphtheria/pertussis, acel/tetanus adult1 12/05/13 Given Hx influenza vaccine-unspecified2 01/02/12 Give n tetanus-diphtheria toxoids3 09/12/04 Given 1Result Comment: boostrix [[id number]]. Migrated from OBS ; Data migrated from [facility] on 04/19/2015. 2Result Comment: fluvax. Migrated from OBS ; Data migrated from [facility] on 04/19/2015. 3Result Comment: td. Migrated from OBS ; Data migrated from [facility] on 04/19/2015. Procedures Procedure Date Related Diagnosis Body Site Status Colonoscopy 01/22/18 Completed Esophagogastroduodenoscopy Completed Manipulation of deviated nasal septum Completed Social History Social History Type Response Alcohol Current, Type Beer. Freque ncy: Daily. 3 Drinks/Episode average. 4.00 Drinks/Episode maximum. Employment/School Status: Employed. 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 Operates [employer] equipment: Yes. Workplace hazards: Heavy lifting/twisting. Substance [...]
--- OUTSIDE RECORDS SUMMARY | 2019-10-16 14:39 | XMS REPORT | Summary of Care ---
Author Author [facility] Address Unknown Phone Unavailable Encounter HQ Melissa_cristhian(FIN) [phone] Date(s): 03/05/19 - 03/05/19 [facility] [address], [address] [place] [id number]- [phone] Discharge Disposition: Home or Self Care Attending Physician: Sebastián Carpio Referring Physician: Sebastián Carpio Vital Signs No data available for this [...] tetanus-diphtheria toxoids3 09/12/04 Given 1Result Comment: boostrix [[id number]]. Migrated from OBS ; Data migrated from [employer] on 04/19/2015. 2Result Comment: fluvax. Migrated from OBS ; Data migrated from drchronoty on 04/19/2015. 3Result Comment: td. Migrated from OBS ; Data migrated from [employer] on 04/19/2015. Procedures Procedure Date Related Diagnosis Body Site Status Colonoscopy 01/22/18 Completed Esophagogastroduodenoscopy Completed Manipulation of deviated nasal septum Completed Social History Social History Type Response Alcohol Current, Type Beer. Freque ncy: Daily. 3 Drinks/Episode average. 4.00 Drinks/Episode maximum. Employment/School Status: Employed. 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 Operates [employer] equipment: Yes. Workplace hazards: Heavy lifting/twisting. Substance [...]
--- OUTSIDE RECORDS SUMMARY | 2019-10-16 14:40 | XMS REPORT | Continuity of Care Document ---
Author Author [facility] t Organization [facility] Address [address] [place] [address] Phone Unavailable Care Team Providers Care Manager Strategic Partnerships Name Role Phone NONSTAFF PCP Unavailable DEYA PALENCIA Attphys Unavailable Matt Reece Attphys Makayla Reynoso MA Attphys Unavailable Nerissa Godinez Attphys Georgette Marsh MD Attphys Mike Carpio Attphys Pyeton Gonzalez Attphys Unavailable Leanne Paez Attphys Leanne Paez Admphys Payers Payer Name Policy Type Policy Number Effective Date Expiration Date S [place] [employer] [place] Ppo [id number] 2019 00:00:00 [facility] Cdc Review Covid19 [id number] [facility] BCBSBCBS CHOICE PPO/FEDERAL EMPL PPOxxxxxxxxxxxx2019-Pre sentPPO xxxxxxxxxxxx 2019 00:00:00 [place] [facility] Problems Condition Name Condition Details Condition Category Status Onset Date Resolution Date Last Treatment Date Treating Clinician Comments Source LT THR:10/06/19 LT T HR:10/06/19 Active 2019 [facility] Diagnosis Active 2019 08:00:00 2019-10-08 11:09:00 [facility] [place] CERVICAL SPONDYLOSIS, CERVICAL SPINAL ST CERVICAL SPONDYLOSIS, CERVICAL SPINAL ST Active 08/17/2016 [facility] Diagnosis Active 2016-08-17 11:56:00 2016-08-30 08:51:00 Suhail Lawrence UNK UNK Active 07/12/2016 [facility] Diagnosis Active 2016-07-12 00:00:00 2016-08-02 09:13:00 [facility] M54.12 - "RADICULOPATHY, CERVICAL REGION M54.12 - "RADICULOPATHY, CERVICAL REGION Active 06/11/2016 GUILLERMINAVignesh Denis Diagnosis Active 2016-06-11 00:01:00 2016-06-15 07:20:00 Suhail Lawrence Non-neoplastic nevus (disorder) Non-neoplastic nevus (disorder) Active 12/05/2013 Problem 09/20/2019 Data migrated from [employer] on 08/14/14. [facility], [facility] [place],[facility] Problem Active 2013-12-05 00:00:00 2019-09-20 00:06:40 [facility] [place] NEVUS, NON-NEOPLASTIC NEVU S, NON-NEOPLASTIC Active 12/05/2013 Condition 10/27/2014 Medical Group Condition Active 2013-12-05 00:00:00 2014-10-27 21:45:00 Suhail Lawrence Hereditary hemochromatosis (disorder) Hereditary hemochromatosis (disorder) Active 03/18/1958 Problem 09/20/2019 Data migrated from [employer] on 08/14/14. [facility], [facility] [place],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 Medical Group,Karl Carranza, [place], [facility] [place],[facility] [place] Problem Resolved 2019-09-20 00:06:40 [facility] Benign hypertension (disorder) Benign hypertension (disorder) Resolved Problem 09/20/2019 Data migrated from [employer] on 08/14/14. Medical Group,Karl Carranza, [place], [facility] [place],[facility] Problem Resolved 2019-09-20 00:06:40 [facility] History of - blood disorder (context-dependent categor y) History of - blood disorder (context-dependent category) Resolved Problem 09/20/2019 Data migrated from [employer] on 10/02/14. Medical Group,Karl Carranza, [place], [facility] [place],[facility] Problem Resolved 2019-09-20 00:06:40 Mariam Lawrence Arthritis (disorder) Arth ritis (disorder) Active Problem 09/20/2019 Data migrated from [employer] on 08/14/14. Medical Group,[facility], [place], [facility] [place],[facility] Problem Active 2019-09-20 00:06:40 [facility] Gastroesophageal reflux disease (disorder) Gastroesophageal reflux disease (disorder) Active Problem 09/20/2019 Data migrated from [employer] on 08/14/14. Medical Group,Karl Carranza, [place], [facility] [place],[facility] Problem Active 2019-09-20 00:06:40 [facility] Hypertensive disorder, systemic arterial (disorder) Hypertensive disorder, systemic arterial (disorder) Active Problem 09/20/2019 Medical Group,[facility], [place], [facility] [place],[facility] Problem Active 2019-09-20 00:06:40 [facility] Lactocele (disorder) Lact ocele (disorder) Active Problem 09/20/2019 Medical Group,[facility], [place], [facility] [place],[facility] Problem Active 2019-09-20 00:06:40 [facility] Smoker (finding) Smok er (finding) Active Problem 09/20/2019 Medical Group,[facility], [place], [facility] [place],[facility] Problem Active 2019-09-20 00:06:40 [facility] Spinal stenosis in cervical region (disorder) Spinal stenosis in cervical region (disorder) Active Problem 09/20/2019 Medical Group,[facility], [place], GUILLERMINAD [place],[facility] Problem Active 2019-09-20 00:06:40 [facility] HTN HTN Active Condition 10/27/2014 Medical Group Condition Active 2014-10-27 21:45:00 [facility] GERD GERD Active Condition 10/27/2014 Medical Group Condition Active 2014-10-27 21:45:00 [facility] BARRETTS ESOPHAGUS MC ETTS ESOPHAGUS Active Condition 10/27/2014 Medical Group Condition Active 2014-10-27 21:45:00 [facility] ARTHRITIS ARTH RITIS Active Condition 10/27/2014 Medical Group Condition Active 2014-10-27 21:45:00 [facility] SPINAL STENOSIS, CERVICAL REGION SPINAL STENOSIS, CERVICAL REGION Active [place] Diagnosis Active 2016 09:13:00 [facility] Allergies, Adverse Reactions, Alerts Allergy Name Allergy Type Status Severity Reaction(s) Onset Date Inacti ve Date Treating Clinician Comments Source Angiotensin-converting enzyme inhibitor Propensity to adverse re actions Active Severe COUGH 2019-09-29 00:00:00 [facility] angiotensin converting enzyme inhibitors<sup>1</sup> a ngiotensin converting enzyme inhibitors<sup>1</sup> Active [facility] CARRIE INHIBITORS CARRIE INHIBITORS Active [facility] Social History Social Habit Start Date Stop Date Quantity Comments Source Sex Assigned At Dede amadoreneida Hernandez Social History 2014-10-27 21:55:18 2014-10-27 21:55:18 [facility] Medications Ordered Medication Name Filled Medication Name Start Date Stop Da te Current Medication? Ordering Clinician Indication Dosage Frequency Signature (SIG) Comments Components Source pantoprazole 40 mg oral enteric coated tablet 2019-09-14 15:17:0 0 Yes 0 Refill(s) [facility] pantoprazole (PROTONIX) 40 MG EC tablet 2019-09-04 00:00:00 Yes 40mg QD Take 1 tablet (40 mg total) by mouth daily. Nilay Hernandez esomeprazole (NexIUM) 40 MG capsule 2019-08-20 00:00:0 0 2019-09-04 00:00:00 No TAKE 1 CAPSULE DAILY BEFORE BREAKFAST [facility] esomeprazole (NexIUM) 40 MG capsule 2019-08-18 00:00:0 0 2019-08-20 00:00:00 No TAKE 1 CAPSULE DAILY BEFORE BREAKFAST [facility] Esomeprazole 40 MG Enteric Coated Capsule [Nexium] 2019-07 14:42:00 Yes 40 mg = 1 cap, P O, Daily, # 90 cap, 1 Refill(s), [id number] [place] Hydrochlorothiazide 12.5 MG / irbesartan 150 MG Oral Tablet 2019-08-11 14:42:00 Yes 1 tab, PO, Daily, DUE FOR APPOINTMENT., # 90 tab, 1 Refill(s), Pharmacy: [id number] [place] esomeprazole (NexIUM) 40 MG capsule 2019-05-06 00:00:0 0 2019-08-18 00:00:00 No TAKE 1 CAPSULE DAILY BEFORE BREAKFAST [facility] Hydrochlorothiazide 12.5 MG / irbesartan 150 MG Oral Tablet 2019-02-05 15:30:44 Yes = 1 tab, P O, Daily, # 90 tab, DUE FOR APPOINTMENT., Pharmacy: [facility] [place] esomeprazole (NexIUM) 40 MG capsule 2018-10-27 00:00:0 0 2019-05-06 00:00:00 No TAKE 1 CAPSULE DAILY BEFORE BREAKFAST [facility] esomeprazole (NexIUM) 40 MG capsule 2018-05-15 00:00:0 0 2018-10-27 00:00:00 No TAKE 1 CAPSULE DAILY BEFORE BREAKFAST [facility] Hydrochlorothiazide 12.5 MG / irbesartan 150 MG Oral Tablet 2018-02-07 16:28:12 Yes = 1 tab, P O, Daily, # 90 tab, Refill(s) 1, Pharmacy: [facility] Nalini caicedo sodium,potassium,mag sulfates (SUPREP GEORGE WEL PREP KIT) 17.5-3.13-1.6 gram recon soln 2018-01-01 00:00:00 Yes Use as direc manuel [facility] Hydrochlorothiazide 12.5 MG / irbesartan 150 MG Oral Tablet 2017-11-08 17:38:12 No See Instru ctions, # 90 tab, TAKE 1 TABLET DAILY, [facility]acy: [facility] Suhail Lawrence Hydrochlorothiazide 12.5 MG / irbesartan 150 MG Oral Tablet 2017-05-13 18:34:05 Yes See Instru ctions, # 90 tab, Refill(s) 1, TAKE 1 TABLET DAILY, Pharmacy: [facility] Suhail Lawrence Hydrochlorothiazide 12.5 MG / irbesartan 150 MG Oral Tablet 2017-02-11 18:06:14 Yes See Instru ctions, # 90 tab, TAKE 1 TABLET DAILY, Pharmacy: [facility] Suhail Lawrence remove patch 2016-08-02 23:00:00 No Notes: Remove old patch before application of new patch. WASTE: F/P - P Waste Black; E - P Waste Black Suhail Lawrence hydrochlorothiazide 25 mg oral tablet 2016-08-02 14:00:00 N o Notes: (Same as: Hydrodiuril) With food. [facility] [place] Senokot 2016-08-02 14:00:00 No Notes: (Same as: Senokot) [facility] [place] Avapro 2016-08-02 14:00:00 No Notes: (Same as:Avapro) [facility] [place] Hydrochlorothiazide 12.5 MG / irbesartan 150 MG Oral T ablet [Avalide 150/12.5] 2016-08-02 14:00:00 No 1 ta b, Route: PO, Drug Form: TAB, Dosing Weight 76.364, kg, Daily, Start date: 08/02/16 9:00:00 CDT, Duration: 30 day, Stop date: 08/31/16 9:00:00 CDT [facility] Beatriz emyers heparin sodium, porcine 2500 UNT/ML Injectable Solution 2016-08-02 13:00:00 No Notes: porcine heparin M [facility] [place] 24 HR Nicotine 0.875 MG/HR Transdermal Patch [Nicoderm C-Q] 2016-08-02 12:49:00 Yes = 1 patch, TOP, Daily, X 28 day, # 28 patch, 0 Refill(s) [facility] [place] Acetaminophen 325 MG / Hydrocodone Bitartrate 10 MG Or al Tablet [Chrisman 10/325] 2016-08-02 12:49:00 Yes 1 ta b, PO, Q4H, PRN Pain Score 1-3, # 60 tab, 0 Refill(s), given to patient Suhail caicedo Acetaminophen 325 MG / Hydrocodone Bitartrate 10 MG Or al Tablet [Chrisman 10/325] 2016-08-02 12:48:00 No Note s: Do not exceed 4gm/day of acetaminophen. (Same as: Chrisman 325/10) Suhail Lawrence Famotidine 20 MG Oral Tablet [Pepcid] 2016-08-02 02:00:00 N o Notes: (Same as: Pepcid) Suhail Lawrence Nicotine 2016-08-01 23:00:00 No Notes: (Same as: Habitrol) "Remove old patch before application of new patch" WASTE: F/P - P Waste Black; E - P Waste Black [facility] [place] Docusate Sodium 100 MG Oral Capsule [Colace] 2016-08-01 22:00:00 No Notes: (Same as: Colace) (Do Not Crush) Suhail Lawrence Cefazolin 2016-08-01 21:00:00 No 1 gm, 100 mL, Route: IVPB, Drug form: INJ, Q8H, Dosing Weight 76.364, kg, Start date: 08/01/16 16:00:00 CDT, Duration: 3 doses or times, Stop date: 08/02/16 8:00:00 CDT [facility] [place] Fentanyl 2016-08-01 16:48:00 No 50 microgram, Route: IVP, ONCE, Dosing Weight 76.364, kg, Start date: 08/01/16 11:48:00 CDT, Stop date: 08/01/16 11:48:00 CDT [facility] Ondansetron 2016-08-01 16:25:00 No 4 mg, Route: IVP, ONCE, Dosing Weight 76.364, kg, PRN Nausea & Vomiting, Start date: 08/01/16 11:25:00 CDT [facility] Morphine 2016-08-01 16:25:00 No 2 mg, Route: IVP, Q5Min, Dosing Weight 76.364, kg, PRN Pain Score 4-6, Start date: 08/01/16 11:25:00 CDT, Duration: 5 doses or times, Stop date: Limited # of times [facility] [place] Naloxone 2016-08-01 16:25:00 No 0.4 mg, Route: IVP, Q2MIN, Dosing Weight 76.364, kg, PRN Narcotic Reversal, Start date: 08/01/16 11:25:00 CDT, Duration: 8 doses or times, Stop date: Limited # of times [facility] [place] Hydralazine 2016-08-01 16:25:00 No 10 mg, Route: IVP, Q20Min, Dosing Weight 76.364, kg, PRN Elevated BP, Start date: 08/01/16 11:25:00 CDT, Duration: 2 doses or times, Stop date: Limited # of times [facility] Labetalol 2016-08-01 16:25:00 No 10 mg, Route: IVP, Q5Min, Dosing Weight 76.364, kg, PRN Elevated BP, Start date: 08/01/16 11:25:00 CDT, Duration: 5 doses or times, Stop date: Limited # of times [facility] [place] Flumazenil 2016-08-01 16:25:00 No 0.2 mg, Route: IVP, PRN, Dosing Weight 76.364, kg, PRN Benzodiazepine Reversal, Initial dose, Start date: 08/01/16 11:25:00 CDT, Duration: 30 day, Stop date: 08/31/16 11:24:00 CDT [facility] Hydromorphone 2016-08-01 16:25:00 No 0.5 mg, Route: IVP, Q5Min, Dosing Weight 76.364, kg, PRN Pain Score 7-10, Start date: 08/01/16 11:25:00 CDT, Duration: 4 doses or times, Stop date: Limited # of times [facility] magnesium citrate 2016-08-01 16:14:00 No Notes: (Same as: Citrate of Magnesia) Concentration: 1.745 gm / 30 mL [facility] Zofran 2016-08-01 16:14:00 No Notes: (Same as: Zofran) MEDICATION WASTE Product Size: 4 mg Product Wasted: ___ mg [facility] Acetaminophen 325 MG / Hydrocodone Bitartrate 5 MG Oral Tabl et 2016-08-01 16:14:00 No Notes: (Sa me as: Chrisman 325/5) Do not exceed 4gm/day of acetaminophen. [facility] Dilaudid 2016-08-01 16:14:00 No 1 mg, 1 mL, Route: IV, Drug form: INJ, Q3H, Dosing Weight 76.364, kg, PRN Pain Score 7-10, Start date: 08/01/16 11:14:00 CDT, Duration: 30 day, Stop date: 08/31/16 11:13:00 CDT Suhail Lawrence Tylenol 2016-08-01 16:14:00 No Notes: Do not exceed 4 gm/day. (Same as: Tylenol) Suhail Lawrence Sodium Chloride 0.154 MEQ/ML Injectable Solution 2016-08-01 16:1 4:00 No 1,000 mL, Rate: 75 ml/hr, In fuse over: 13.3 hr, Route: IV, Dosing Weight 76.364 kg, Total Volume: 1,000, Start date: 08/01/16 11:14:00 CDT, Duration: 30 day, Stop date: 08/31/16 11:13:00 CDT Al risa Lawrence rocuronium (ANES) 2016-08-01 13:46:00 No Route: IV, Drug form: INJ, ONCE, Stop date: 08/01/16 8:46:00 CDT Al risa Lawrence propofol (ANES) 2016-08-01 13:46:00 No Route: IV, Drug form: INJ, ONCE, Stop date: 08/01/16 8:46:00 CDT Al risa Lawrence ePHEDrine (ANES) 2016-08-01 13:46:00 No Route: IV, Drug form: INJ, ONCE, Stop date: 08/01/16 8:46:00 CDT Al risa Lawrence midazolam (ANES) 2016-08-01 13:46:00 No Route: IV, Drug form: SOLN, ONCE, Stop date: 08/01/16 8:46:00 CDT Al risa Lawrence ondansetron (ANES) 2016-08-01 13:46:00 No Route: IV, Drug form: INJ, ONCE, Stop date: 08/01/16 8:46:00 CDT emorijoel Hendersonann dexamethasone (ANES) 2016-08-01 13:46:00 No Route: IV, Drug form: INJ, ONCE, Stop date: 08/01/16 8:46:00 CDT [facility] [place] fentaNYL (ANES) 2016-08-01 13:46:00 No Route: IV, Drug form: INJ, ONCE, Stop date: 08/01/16 8:46:00 CDT Al risa Lawrence lidocaine (FAUSTOS) 2016-08-01 13:46:00 No Route: IV, Drug form: INJ, ONCE, Stop date: 08/01/16 8:46:00 CDT Al risa Lawrence acetaminophen (FAUSTOS) (FAUSTOS) 2016-08-01 13:21:00 No Route: IV, Drug form: INJ, Start date: 08/01/16 8:21:00 CDT, Stop date: 08/01/16 9:21:00 CDT Suhail Lawrence ceFAZolin (MARCELO) (FAUSTOS) 2016-08-01 13:11:00 No Route: IV, Drug form: INJ, Start date: 08/01/16 8:11:00 CDT, Stop date: 08/01/16 9:11:00 CDT Suhail Lawrence Calcium Chloride 0.0014 MEQ/ML / Potassi um Chloride 0.004 MEQ/ML / Sodium Chloride 0.103 MEQ/ML / Sodium Lactate 0.028 MEQ/ML Injectable Solution 2016-08-01 12:41:00 No 1,000 mL, Rate: 25 ml/hr, Infuse over: 40 hr, Route: IV, Dosing Weight 76.364 kg, Total Volume: 1,000, Start date: 08/01/16 7:41:00 CDT, Duration: 30 day, Stop date: 08/31/16 7:40:00 CDT Suhail Lawrence LR 1000 mL INJ (FAUSTOS) 2016-08-01 12:39:00 No Route: IV, Total Volume: 1,000, Start date: 08/01/16 7:39:00 CDT, Stop date: 08/01/16 8:39:00 CDT Suhail Lawrence Esomeprazole 40 MG Enteric Coated Capsule [Nexium] 2016-07 12:10:00 Yes 40 mg = 1 cap, PO, Daily, # 30 cap, 0 Re fill(s) Suhail Lawrence MOBIC 7.5 MG TABS 2013-12-05 00:00:00 Yes Take one tablet by mouth once daily as needed Suhail Lawrence NEXIUM 20 MG CPDR 2013-12-05 00:00:00 Yes Take one tablet by mouth once daily as needed [facility] FAST PAIN RELIEF 845-65 MG PACK 2013-12-05 00:00:00 Yes Ingest one pack once daily as needed [facility] Nalini ermmira NEXIUM 20 MG CPDR 2013-12-05 00:00:00 Yes Take one tablet by mouth once daily as needed [facility] [place] AVALIDE 150-12.5 MG TABS 2012-11-24 00:00:00 Yes Take 1 po daily [facility] AVALIDE 150-12.5 MG TABS 2012-11-24 00:00:00 Yes Take 1 po daily [facility] Cephalexin Monohydrate (Keflex) 500 Mg CAPSULE Cephale juliano Monohydrate (Keflex) 500 Mg CAPSULE Yes 500 Four Times Daily [facility] Enoxaparin Sodium (Lovenox) 40 Mg/0.4 Ml INJ Enoxapari n Sodium (Lovenox) 40 Mg/0.4 Ml INJ Yes 40 Daily@1700 C [facility] Hydrocodone Bit/Acetaminophen (Chrisman 10-325 Tablet) 1 Each TABLET Hydrocodone Bit/Acetaminophen (Chrisman 10-325 Tablet) 1 Each TABLET Yes 1 Every 6 Hours as needed for Severe Pain (7-10) C [facility] Irbesartan/Hydrochlorothiazide (Irbesartan-Hctz 150-12 .5 Mg Tb) 1 Each TABLET Irbesartan/Hydrochlorothiazide (Irbesartan-Hctz 150-12.5 Mg Tb) 1 Each TABLET Yes 1 Daily [facility] Meloxicam Meloxicam Yes 15 As Needed [facility] Pantoprazole Sodium (Protonix) 20 Mg TABLET. Pantopr azole Sodium (Protonix) 20 Mg TABLET. Yes 40 Daily [facility] Aspirin/Caffeine (Bc Powder Packet) 1 Each POWD.PACK A spirin/Caffeine (Bc Powder Packet) 1 Each POWD.PACK 2019-10-07 00:00:00 No 1 As Needed [facility] Vital Signs Vital Name Observation Time Observation Value Comments Source Body Temperature 2019-10-07 12:11:00 98.2 [degF] [facility] Weight 2019 21:45:00 166 [lb_av] [facility] BMI (Body Mass Index) 2019 21:45:00 21.9 kg/m2 [facility] Systolic (mm Hg) 2019-09-14 15:17:00 Saurabh rial [place] Diastolic (mm Hg) 2019-09-14 15:17:00 [facility] [place] Height 2019-09-14 15:17:00 182.88 cm [facility] [place] Weight 2019-09-14 15:17:00 [facility] [place] BMI Calculated 2019-09-14 15:17:00 [facility] [place] Heart Rate 2019-09-14 15:17:00 [facility] [place] Temperature Oral (F) 2019-09-14 15:17:00 97.9 F [facility] [place] Systolic (mm Hg) 2019-05-20 13:54:00 Saurabh rial [place] Diastolic (mm Hg) 2019-05-20 13:54:00 Mem [facility] [place] Heart Rate 2019-05-20 13:54:00 [facility] [place] Temperature Oral (F) 2019-05-20 13:54:00 98.0 F [facility] [place] Height 2019-05-20 13:54:00 182.88 cm [facility] Weight 2019-05-20 13:54:00 [facility] BMI Calculated 2019-05-20 13:54:00 [facility] [place] BMI Calculated 2018-10-15 21:06:00 [facility] [place] Weight 2018-10-15 21:06:00 [facility] [place] Height 2018-10-15 21:06:00 182.88 cm [facility] [place] Temperature Oral (F) 2018-10-15 21:06:00 98.6 F [facility] Heart Rate 2018-10-15 21:06:00 [facility] [place] Systolic (mm Hg) 2018-10-15 21:06:00 Saurabh rial [place] Diastolic (mm Hg) 2018-10-15 21:06:00 [facility] [place] Height 2017-12-16 20:45:00 182.88 cm [facility] [place] Weight 2017-12-16 20:45:00 [facility] [place] BMI Calculated 2017-12-16 20:45:00 [facility] [place] Systolic (mm Hg) 2017-12-16 20:45:00 Saurabh [facility] [place] Diastolic (mm Hg) 2017-12-16 20:45:00 [facility] [place] Heart Rate 2017-12-16 20:45:00 [facility] [place] Temperature Oral (F) 2017-12-16 20:45:00 97.8 F [facility] [place] Weight 2017-08-08 13:33:00 [facility] Height 2017-08-08 13:33:00 182.88 cm [facility] [place] BMI Calculated 2017-08-08 13:33:00 [facility] [place] BMI Calculated 2017-02-27 21:48:00 [facility] [place] Height 2017-02-27 21:48:00 182.88 cm [facility] [place] Weight 2017-02-27 21:48:00 [facility] Temperature Oral (F) 2017-02-27 21:48:00 98.0 F [facility] [place] Respitory Rate 2017-02-27 21:48:00 [facility] [place] Systolic (mm Hg) 2017-02-27 21:48:00 Saurabh rial [place] Diastolic (mm Hg) 2017-02-27 21:48:00 [facility] [place] Heart Rate 2017-02-27 21:48:00 [facility] Respitory Rate 2016-08-02 17:22:00 [facility] [place] Temperature Oral (F) 2016-08-02 17:22:00 97.7 F [facility] [place] Heart Rate 2016-08-02 17:22:00 [facility] Systolic (mm Hg) 2016-08-02 17:22:00 Saurabh [facility] [place] Diastolic (mm Hg) 2016-08-02 17:22:00 [facility] [place] Heart Rate 2016-08-02 12:16:00 [facility] Systolic (mm Hg) 2016-08-02 12:16:00 Saurabh rial [place] Diastolic (mm Hg) 2016-08-02 12:16:00 [facility] [place] Respitory Rate 2016-08-02 12:16:00 [facility] [place] Temperature Oral (F) 2016-08-02 12:16:00 98.1 F [facility] [place] Systolic (mm Hg) 2016-08-02 09:31:00 Saurabh [facility] [place] Diastolic (mm Hg) 2016-08-02 09:31:00 [facility] [place] Respitory Rate 2016-08-02 09:31:00 [facility] [place] Heart Rate 2016-08-02 09:31:00 [facility] [place] Temperature Oral (F) 2016-08-02 09:31:00 97.8 F [facility] Height 2016-08-01 20:38:00 182.88 cm [facility] Weight 2016-08-01 20:38:00 [facility] [place] BMI Calculated 2016-08-01 20:38:00 [facility] [place] Weight 2016-07-25 12:03:00 [facility] [place] BMI Calculated 2016-07-25 12:03:00 [facility] [place] Height 2016-07-25 12:03:00 182.88 cm [facility] Height 2013-12-05 14:01:21 [facility] [place] Weight 2013-12-05 14:01:21 [facility] [place] Temperature Oral (F) 2013-12-05 14:01:21 97.7 F [facility] [place] Respitory Rate 2013-12-05 14:01:21 [facility] [place] Heart Rate 2013-12-05 14:01:21 [facility] [place] Systolic (mm Hg) 2013-12-05 14:01:21 Saurabh [facility] [place] Diastolic (mm Hg) 2013-12-05 14:01:21 [facility] [place] Procedures Procedure Date / Time Performed Performing Clinician [facility] e Destruction (eg, laser surgery, electros urgery, cryosurgery, chemosurgery, surgical curettement), premalignant lesions (eg, actinic keratoses); second through 14 lesions, each (List separately in addition to code for first lesion) 2019-09-14 15:42:00 [facility] [place] Destruction (eg, laser surgery, electros urgery, cryosurgery, chemosurgery, surgical curettement), premalignant lesions (eg, actinic keratoses); first lesion 2019-09-14 15:42:00 [facility] Incision and drainage of abscess (eg, ca rbuncle, suppurative hidradenitis, cutaneous or subcutaneous abscess, cyst, furuncle, or paronychia); simple or single 2018-10-15 21:41:00 [facility] Colonoscopy 2018-01-22 06:00:00 [facility] smoking/tobacco cessation, patient education and counseling 2013-12-05 14:01:21 [facility] Esophagogastroduodenoscopy [facility] [place] Manipulation of deviated nasal septum [facility] Plan of Care Planned Activity Planned Date Details Comments Source Future Scheduled Test 2019-10-17 00:00:00 INFLUENZA VACCINE [code = INFLUENZA VACCINE] [facility] Future Scheduled Test 2019-01-22 00:00:00 GASTROSCOPY (EGD) [code = GASTROSCOPY (EGD)] [facility] Future Scheduled Test 2006 00:00:00 COLONOSCOPY SCREEN ING [code = COLONOSCOPY SCREENING] [facility] Future Scheduled Test 2006 00:00:00 SHINGLES VACCINES (#1) [code = SHINGLES VACCINES (#1)] [facility] Instructions Post Operative Pain [facility] Encounters Start Date/Time End Date/Time Encounter Type Admission Type [facility] Care Department Encounter ID Source 2019 22:18:00 2019-10-07 14:08:00 Discharged Inpatient (obs) [address] [facility] [id number] I [facility] 2019-09-16 08:46:33 2019-09-17 23:59:59 Outpatient [facility] [id number] 2019-09-15 12:24:15 2019-09-16 12:24:15 Outpatient [facility] [id number] 2019-09-14 10:00:00 2019-09-14 23:59:59 Outpatient Jh Reece [facility] [id number] 2019-08-11 09:35:34 2019-08-12 23:59:59 Outpatient [facility] [id number] 2019-08-07 08:20:00 2019-08-07 23:59:00 Outpatient Karen Godinez MHOIP MHOIP [id number] 2019-05-22 12:55:23 2019-05-23 12:55:23 Outpatient [facility] [id number] 2019-05-20 08:00:00 2019-05-20 23:59:59 Outpatient Jh Reece [facility] [id number] 2019-03-05 10:13:00 2019-03-05 23:59:00 Outpatient Enio Carpio [facility]HO[facility] MHOIP [id number] 2019-02-05 07:53:51 2019-02-06 23:59:59 Outpatient [facility] [id number] 2018-10-16 08:04:19 2018-10-17 08:04:19 Outpatient [facility] [id number] 2018-10-15 16:00:00 2018-10-15 23:59:59 Outpatient Jh Reece [facility] [id number] 2018-02-07 08:27:00 2018-02-08 23:59:59 Outpatient [facility] [id number] 2018-01-24 13:45:00 2018-01-25 23:59:59 Outpatient [facility] [id number] 2017-12-16 15:30:00 2017-12-16 23:59:59 Outpatient Jh Reece [facility] [id number] 2017-11-08 09:48:00 2017-11-09 23:59:59 Outpatient [facility] [id number] 2017-08-08 08:30:00 2017-08-08 23:59:59 Outpatient Peyton Gonzalez MHMISCHER MHMISCHER [id number] 2017-08-06 11:01:00 2017-08-07 23:59:59 Outpatient MHMIS SERGE MHMISCHER [id number] 2017-05-13 08:30:00 2017-05-14 23:59:59 Outpatient [facility] [id number] 2017-02-27 15:30:00 2017-02-27 23:59:59 Outpatient Jh Reece [facility] [id number] 2017-02-27 15:30:00 2017-02-27 15:30:00 Outpatient Jh Reece [facility] [id number] 2017-02-19 11:12:00 2017-02-20 23:59:59 Outpatient MHMIS SERGE MHMISCHER [id number] 2017-02-11 10:04:00 2017-02-12 23:59:59 Outpatient [facility] [id number] 2016-08-30 08:35:00 2016-09-28 23:59:00 Outpatient Lopez Paez [id number] 2016-08-01 05:30:00 2016-08-02 13:42:00 Outpatient Nida Paez [facility] [id number] 2016-07-04 07:25:00 2016-07-04 23:59:00 Outpatient Lopez Paez [facility] [id number] 2016-06-15 07:07:00 2016-06-15 23:59:00 Outpatient Jaxondominiquemargie Jh [facility] [id number] Results Test Description Test Time Test Comments Results Result Comments Source FLURO UP TO 1 HR-GENERAL 2019 09:21:00 [place] [address] Patient Name: MAHSA TYLER MR #: [id number] : 1955 Age/Sex: 63/M Req #: [id number] Adm Physician: Ordered by: DEYA PALENCIA DO Report #: [id number] Location: OR Room/Bed: Procedure: [id number] DX/FLURO UP TO 1 HR-GENERAL Exam Date: 10/06/19 Exam Time: 0746 REPORT STATUS: Signed OR Fluoroscopy: IMPRESSION: Fluoroscopy service provided in the OR. Interpretation not requested. Signed by: Rigoberto Griffin MD on 2019 9:22 AM Dictated By: RIGOBERTO GRIFFIN MD 1 Transcribed By: JOSE on 10/06/19921 COPY TO: DEYA PALENCIA DO Fluoroscopic procedure less than one hour duration 2019-09-16 12:45:00 Test Item Coronavirus (PCR) (test code = Coronavirus (PCR)) NOT DETECTED NOTD ETECTED SARS-COV-2 (COVID19), HIGHRISK, RT-PCRNegative results do not preclude SARS-CoV- 2 infection and should not be used as the sole basis for patient management deci sions. Negative results must be combined with clinical observations, patient his tory, and epidemiological information. Optimum specimen types and timing for pea k viral levels during infections caused by SARS-CoV-2 have not been determined. Collection of multiple specimens ot types of specimens may be necessary to detec t virus. Improper specimen collection and handling, sequence variability under p rimers/probes, or organism present below the limit of detection may lead to fals e negative results. Positive and negative predictive values of testing are highl y dependent on prevalance. False negative test results are more likely when prev alence is high.The expected result is negative (not detected).The SARS-CoV-2 maverick t is intended for the qualitative detection of nucleic acid from SARS-CoV-2 in n asopharyngeal and oropharyngeal swab samples from patients who meet COVID-19 cli nical and or epidemiological criteria. For lower respiratory tract specimens, th e assay is submitted for authoriztion by FDA under an Emergency Use Authorizatio n (EUA). Testing methodology is real time RT-PCR. If received as separate collec tion devices, nasopharygeal and oropharyngeal specimens are combined for analysi s. Additional specimens may be split to a separate accession for analysi and rep orting as this test includes a single unit of service.Test results must be corre lated with clinical presentation and evaluated in the context of other laborator y and epidemiologic data. Test performance can be affected because the epidemiol ogy and clinical spectrum of infection caused by SARS-CoV-2 is not fully known. For example, the optimum types of specimens to collect and when during the cours e of infection these specimens are most likely to contain detectable viral RNA m ay not be known.This test has not been Food and Drug Administration (FDA) cleare d or approved and has been authorized by FDA under an Emergency Use Authorizatio n (EUA). The test is only authorized for the duration of the declaration that ci rcumstances exist justifying the authorization of emergency use of in vitro diag nostic tests for detection and/or diagnosis of SARS-CoV-2 under section 564(b) o f the Act, 21 U.S.C. section 360bbb-3(b)(1), unless the authorization is termina manuel or revoked sooner. [facility] are certified under the C linical Laboratory Improvement Amendments of 1988 (CLIA), 42 U.S.C. section 263a , to perform high complexity tests.Testing performed by [facility] [address] [phone] Director: Eliazar Tatum M.D.CLIA # [id number] [facility] CenterBllake [facility] leukocytes automated count (number/volume)2019-10-01 12:23:00* Test Item Value Reference Range Interpretation Comments White Blood Count (test code = 6690-2) 6.13 4.8-10.8 [facility] erythrocytes automated count (number/volume)2019-10-01 12:23:00* Test Item Value Reference Range Interpretation Comments Red Blood Count (test code = 789-8) 4.79 4.3-5.7 [facility] CenterBlood hemoglobin measurement (moles/volume)2019-10-01 12:23:00* Test Item Value Reference Range Interpretation Comments Hemoglobin (test code = 28055-8) 15.3 14.0-18.0 [facility] CenterAutomated blood hematocrit (volume fraction)2019-10-01 12:23:00* Test Item Value Reference Range Interpretation Comments Hematocrit (test code = 4544-3) 46.0 38.2-49.6 [facility] CenterAutomated erythrocyte mean corpuscular ezaoae0022-16-62 12:23:00* Test Item Value Reference Range Interpretation Comments Mean Corpuscular Volume (test code = 787-2) 96.0 81-99 [facility] CenterAutomated erythrocyte mean corpuscular hemoglobin (mass per erythrocyte)2019-10-01 12:23:00* Test Item Value Reference Range Interpretation Comments Mean Corpuscular Hemoglobin (test code = 785-6) 31.9 28-32 [facility] CenterAutomated erythrocyte mean corpuscular hemoglobin concentration measurement (mass/volume)2019-10-01 12:23:00* Test Item Value Reference Range Interpretation Comments Mean Corpuscular Hemoglobin Concent (test code = 786-4) 33.3 31-35 [facility] CenterRDW BenVq-Vjz4330-01-16 12:23:00* Test Item Value Reference Range Interpretation Comments Red Cell Distribution Width (test code = 86310-9) 12.0 11.7 -14.4 [facility] CenterAutomated blood platelet count (count/volume)2019-10-01 12:23:00* Test Item Value Reference Range Interpretation Comments Platelet Count (test code = 777-3) 250 140-360 [facility] CenterAutomated blood segmented neutrophil count as percentage of total kuhddfjboy3390-58-98 12:23:00* Test Item Value Reference Range Interpretation Comments Neutrophils (%) (Auto) (test code = 45733-0) 67.1 38.7-80.0 [facility] CenterAutdu[facility] hospitaled blood lymphocyte count as percentage ot total ncqiadqfns4750-85-20 12:23:00* Test Item Value Reference Range Interpretation Comments Lymphocytes (%) (Auto) (test code = 736-9) 20.6 18.0-39.1 [facility] CenterAutomated blood monocyte count as percentage of total ocxhwmgpxc0318-16-61 12:23:00* Test Item Value Reference Range Interpretation Comments Monocytes (%) (Auto) (test code = 5905-5) 8.6 4.4-11.3 [facility] CenterAutomated blood eosinophil count as percentage of total zethixadmn3107-50-88 12:23:00* Test Item Value Reference Range Interpretation Comments Eosinophils (%) (Auto) (test code = 713-8) 2.8 0.0-6.0 [facility] CenterAutomated blood basophil count as percentage of total syednhkawi5203-77-42 12:23:00* Test Item Value Reference Range Interpretation Comments Basophils (%) (Auto) (test code = 706-2) 0.7 0.0-1.0 [facility] CenterFluoroscopic procedure less than one hour ayazjgmp5742-51-41 12:23:00* Test Item Value Reference Range Interpretation Comments IM GRANULOCYTES % (test code = IM GRANULOCYTES %) 0.2 0.0- 1.0 [facility] CenterAutomated blood neutrophil count 2019-10-01 12:23:00* Test Item Value Reference Range Interpretation Comments Neutrophils # (Auto) (test code = 751-8) 4.1 2.1-6.9 [facility] CenterBlood lymphocytes count (number/volume) 2019-10-01 12:23:00* Test Item Value Reference Range Interpretation Comments Lymphocytes # (Auto) (test code = 56459-9) 1.3 1.0-3.2 [facility] CenterBlood monocytes automated count (number/volume)2019-10-01 12:23:00* Test Item Value Reference Range Interpretation Comments Monocytes # (Auto) (test code = 742-7) 0.5 0.2-0.8 [facility] CenterAutomated blood eosinophil count 2019-10-01 12:23:00* Test Item Value Reference Range Interpretation Comments Eosinophils # (Auto) (test code = 711-2) 0.2 0.0-0.4 [facility] CenterAutomated blood basophil count (count/volume)2019-10-01 12:23:00* Test Item Value Reference Range Interpretation Comments Basophils # (Auto) (test code = 704-7) 0.0 0.0-0.1 [facility] CenterFluoroscopic procedure less than one hour roirbfpq1034-38-25 12:23:00* Test Item Value Reference Range Interpretation Comments Absolute Immature Granulocyte (auto (maverick t code = Absolute Immature Granulocyte (auto) 0.01 0-0.1 [facility] CenterProthrombin time (PT) in platelet poor plasma by coagulation ripxm7840-59-70 12:23:00* Test Item Value Reference Range Interpretation Comments Prothrombin Time (test code = 5902-2) 12.2 11.9-14.5 [facility] CenterINR in Platelet poor plasma by Coagulation wrdof4628-26-49 12:23:00* Test Item Value Reference Range Interpretation Comments Prothromb Time International Ratio (test code = 6301-6) 0.86 Oral Anticoagulant Therapy INR Values:1. Low Intensity Therapy 1.5 - 2.02 . Moderate Intensity Therapy 2.0 - 3.03. High Intensity Therapy(1) 2.5 - 3. 54. High Intensity Therapy(2) 3.0 - 4.05. Panic Value INR > 5.0 [facility] CenterActivated partial thromboplastin time (aPTT) in platelet poor plasma by coagulation vovwq2334-16-77 12:23:00* Test Item Value Reference Range Interpretation Comments Activated Partial Thromboplast Time (test code = 05413-9) 28.4 23.8-35.5 [facility] or plasma sodium measurement (moles/volume)2019-10-01 12:23:00* Test Item Value Reference Range Interpretation Comments Sodium Level (test code = 2951-2) 140 136-145 [facility] Centererum or plasma potassium measurement (moles/volume)2019-10-01 12:23:00* Test Item Value Reference Range Interpretation Comments Potassium Level (test code = 2823-3) 4.1 3.5-5.1 [facility] Centererum or plasma chloride measurement (moles/volume)2019-10-01 12:23:00* Test Item Value Reference Range Interpretation Comments Chloride Level (test code = 2075-0) 105 98-107 [facility] Centererum or plasma carbon dioxide, total measurement (moles/volume)2019-10-01 12:23:00* Test Item Value Reference Range Interpretation Comments Carbon Dioxide Level (test code = 2028-9) 27 22-29 [facility] Centererum or plasma anion dyg0486-57-16 12:23:00* Test Item Value Reference Range Interpretation Comments Anion Gap (test code = 41759-9) 12.1 8-16 [facility] Centererum or plasma urea nitrogen measurement (mass/volume)2019-10-01 12:23:00* Test Item Value Reference Range Interpretation Comments Blood Urea Nitrogen (test code = 3094-0) 14 10-10 [facility] Centererum or plasma creatinine measurement (mass/volume)2019-10-01 12:23:00* Test Item Value Reference Range Interpretation Comments Creatinine (test code = 2160-0) 0.96 0.72-1.25 [facility] Centererum or plasma urea nitrogen/creatinine mass bbgll3506-27-59 12:23:00* Test Item Value Reference Range Interpretation Comments BUN/Creatinine Ratio (test code = 3097-3) 15 09-09 [facility] CenterEstimated glomerular filtration rate (GFR) kpmpwgshkliro3169-41-56 12:23:00* Test Item Value Reference Range Interpretation Comments Estimat Glomerular Filtration Rate (test code = 577486683) > 60 >60 Ranges were taken from the National Kidney Disease Education Program and the [facility] Kidney Foundation literature.Reference ranges:60 or greater: Gslqss34-12 ( for 3 consecutive months): Chronic kidney disease 15 or less: Kidney failureDell Children's Medical CenterGlucose yvbliibpxec2702-89-15 12:23:00* Test Item Value Reference Range Interpretation Comments Glucose Level (test code = NRF2373) 97 74-118 [facility] Centererum or plasma calcium measurement (mass/volume)2019-10-01 12:23:00* Test Item Value Reference Range Interpretation Comments Calcium Level (test code = 09651-7) 9.4 8.4-10.2 [facility] CenterCHEM ARBFN1517-86-45 15:44:0088[facility]annCHEM CNWRF9445-56-55 15:44:0010Mem[facility] HermannCHEM LZYAA3511-73-92 15:44:000.76[facility]annCHEM QPXBD0362-28-20 15:44:0098[facility]annCHEM JAUYS6510-15-46 15:44:41383Bwqdwdlr HermannCHEM OPFLE3039-16-84 15:44:34138 [facility]annCHE[facility] YVAWI5833-29-58 15:44:004.0[facility]annCHEM PANEL 2019-09-14 15:44:78074Zxpypcxv [facility]annCHE[facility] RDOET3670-92-90 15:44:0026[facility]annCHEM VOCBY4724-40-61 15:44:009.5[facility]annCHEM PXMJX9342-08-95 15:44:006.5[facility]annCHEM HLZJG1343-25-08 15:44:004.1[facility]annCHEM NFJWJ0415-48-15 15:44:002.4[facility]annCHEM UEAMG0844-33-76 15:44:001.7 [facility]annCHE[facility] OOQTP8738-06-55 15:44:001.0[facility]annCHEM PANEL 2019-09-14 15:44:0088Mem[facility] HermannCHEM YARFZ9986-07-41 15:44:0020[facility]annCHEM OIWCE5187-75-08 15:44:0016[facility] QbzivpcSXQHXKBTNB1949-47-72 15:44:006.5[facility] UmxictuXNCYUNPAET3895-53-64 15:44:004.70[facility] BRSIYAZGZC0608-79-74 15:44:0015.3[facility] PvuauapQBLSHDWDWO2706-00-71 15:44:00 46.0[facility] VokiysmPJZSNBLSPC5352-57-91 15:44:0097.9[facility]annHEMATOLOGY 2019-09-14 15:44:00* Test Item Value Reference Range Interpretation Comments MCH (test code = MCH) 32.6 pg 27.0-33.0 [facility] ZedbiomQWJVCTHNME0559-83-15 15:44:0033.3[facility]annHEMATOLOGY 2019-09-14 15:44:0011.9[facility] WxvekzcEOWIZIOKZZ9714-89-12 15:44:03041Blvcgrsd LjbxlobWBCNJKDCTF7527-12-01 15:44:0010.9[facility] BdwiiqzEPAYAUPPUG5431-33-79 15:44:242586Roxvuilk RovpcfiHEMDRTBFIN4637-51-64 15:44:946538Xdqamnml [place] XCQTEAREDC2800-42-64 15:44:35130Bqoisbts JzotbrsIBJXLGZIWE4830-20-64 15:44:55264 [facility] UjfbydlXCKKXDZLKV7829-56-74 15:44:0020[facility]annHEMATOLOGY 2019-09-14 15:44:0068.4[facility] CiwlauzVZSRQLRYLL3068-61-44 15:44:0021.8[facility] AhzumzfJSKUYLIUNG1513-09-39 15:44:007.5[facility] CcoeqqpMVRTCMDNZM6131-10-04 15:44:002.0[facility] BlpbuczJGAFFKQKFK1207-30-93 15:44:000.3[facility] NWTVJDEELB7010-26-79 15:44:00* Test Item Value Reference Range Interpretation Comments INR (test code = INR) 1.0 1 [facility] MhekiawFBQOZNOKKO5009-80-30 15:44:00* Test Item Value Reference Range Interpretation Comments PROTIME (test code = PROTIME) 9.9 s 9.0-11.5 [facility] MczjdzzGQSJIDQPDK8887-55-42 15:44:00* Test Item Value Reference Range Interpretation Comments aPTT (test code = aPTT) 31 s 22-34 [facility]annUR[facility] AND VMGGT2257-59-63 15:44:00* Test Item Value Reference Range Interpretation Comments UA Spec Grav (test code = UA Spec Grav) 1.007 1 1.001-1.035 [facility] AND GJHNA6010-73-96 15:44:00* Test Item Value Reference Range Interpretation Comments UA pH (test code = UA pH) 6.5 1 5.0-8.0 [facility] HermannBLOOD BANK ZRZXWYB5171-63-28 12:39:00Negative (07/25/16 7:39 AM) [facility]annCHEM CWVVS0570-57-40 12:39:0029[facility]annCHEM PANEL 2016-07-25 12:39:003.8[facility]annCHEM MLIEM2623-91-93 12:39:85252Qxjbtplb HermannCHEM MVBHX0617-39-62 12:39:0029[facility]annCHEM TERXS1612-66-61 12:39:000.7[facility]annCHEM GFBDA6333-06-36 12:39:10285Aliayivz HermannCHEM YERCI8304-32-50 12:39:007.0[facility]annCHEM TSRIW7717-81-00 12:39:008.8 [facility]annCHE[facility] ZWTZN3625-40-21 12:39:91294Vqbjfngd HermannCHEM PANEL 2016-07-25 12:39:003.9[facility]annCHEM HSJZO0808-42-96 12:39:0026[facility]annCHEM AKXWN1523-84-44 12:39:0095[facility]annCHEM YQPHC5288-73-66 12:39:0018[facility] HermannCHEM MRWUA4519-12-86 12:39:000.86[facility] HermannCHEM LFVDZ6859-77-39 12:39:76331Tqxadgvp [facility]annCHEM EMMBY1323-23-72 12:39:0012.9 [facility]annCHEM QGUAQ0452-91-84 12:39:003.2[facility]annCHEM PANEL 2016-07-25 12:39:0021[facility]annCHEM KTNDB2722-16-98 12:39:001.2[facility] IvkvpdxMDQULEPDDT1866-90-73 12:39:00* Test Item Value Reference Range Interpretation Comments PTT (test code = PTT) 28.7 s 22.9-35.8 [facility] BjedsfyMLRVQSTYVT3731-23-65 12:39:00* Test Item Value Reference Range Interpretation Comments PT (test code = PT) 12.8 s 12.0-14.7 [facility] HbckgeuXFNRBCNIYT7047-81-99 12:39:000.94[facility]annHEMATOLOGY 2016-07-25 12:39:0045.6[facility] YrnyhyeAESDDCXQFX8090-25-61 12:39:008.1[facility] BhpblkfWHIZVGUNPQ6709-02-59 12:39:0015.8[facility] CkrkxqvGQLRBCBUBU6909-84-69 12:39:004.82[facility] HcwmzrqDQYRKTSFZV0139-79-94 12:39:0094.6[facility] YOPRYPYNAC8738-11-06 12:39:009.3[facility] NwdqqzxSHDJLISMRC5729-28-77 12:39:00 34.6[facility] RfrygobNMGEQAMSMB8119-02-40 12:39:26714Eijlqcnf [facility]annHEMATOLOGY 2016-07-25 12:39:0012.7[facility] DpyxzwrOFTYIKBCEL9111-32-99 12:39:00* Test Item Value Reference Range Interpretation Comments MCH (test code = MCH) 32.7 pg 27.0-31.0 [facility] YhogrmnPGURLZSVJF4626-91-18 12:39:000.1[facility] HermannHEMATOLOGY 2016-07-25 12:39:000.7[facility] ZmaxyshYINQBXYNEL6096-56-82 12:39:001.4[facility] BadoxmbICHJCDPLHJ4858-54-26 12:39:001.1[facility] JivhnejDNFROMYRGY2674-55-64 12:39:000.6[facility] CikouryOECMBICBJE6333-86-13 12:39:000.1[facility] [place] WTMQLVBAEI3786-31-05 12:39:006.2[facility] NeaunchEWUGRTRAEM0967-46-53 12:39:00 76.5[facility] JqopxkgNGZJFOVPIV6857-88-78 12:39:008.3[facility] HermannHEMATOLOGY 2016-07-25 12:39:0013.2[facility] VmeahxaPmmmkwwyr4764-52-80 02:45:21016 MEQ/L [facility] XzvzqycEgyfnqgtm8182-87-20 02:45:003.8 MEQ/LMemorial HermannChemistry 2014-10-28 02:45:000.8[facility] KatrtoyCyjthyqhk8289-10-45 02:45:0020[facility] KitzyeiTkhkortbx6305-47-56 02:45:00* Test Item Value Reference Range Interpretation Comments BUN/CREAT (test code = BUN/CREAT) 25 1 6-25 [facility] IofhzrrDlgfbbtxs5546-57-21 02:45:004.0[facility] HermannChemistry 2014-10-28 02:45:008.5[facility] TqrmuwiTpkrhfwdn9282-13-58 02:45:0033[facility] WqngcneKdndqpmub1450-00-87 02:45:0037[facility] NuzckawIhavmnzxa1468-20-83 02:45:84905Bsbshkex IdewvbcKairkooam3475-32-39 02:45:55644Snpqlayj [facility] Vbakpssbf7935-38-47 02:45:54346Pzcxpgat MgyqfgcLdxstejpz5219-04-51 02:45:0027 [facility] ViswhewJjnxuujzdv0312-70-19 02:45:0014.4[facility] HermannHematology 2014-10-28 02:45:0042.5[facility] NimrolmXylvjelhyc7526-59-81 02:45:42501 K/CMM [facility] TnblyzrMwvvpoaml0609-49-71 15:30:005.3[facility] HermannChemistry 2013-12-05 15:30:29766Dahrelde KfkjqfeZlsdtfysm6784-93-40 15:30:0051[facility] DhwtilvHlxrevupj4103-13-10 15:30:005.3[facility] RgflvcxPfjodeupd5317-80-80 15:30:45939Olvkzxcl LqabvmfEaqpofnlm1925-74-78 15:30:0051[facility] [place] Olccyfmax7083-51-67 15:30:0087[facility] GyzbwwoAppdegorj2265-25-19 15:30:0083 Memorial LtnouvfXthtqftkw3583-18-84 15:30:17021 MEQ/LMemorial HermannChemistry 2013-12-05 15:30:004.1 MEQ/LMemorial SsfkcnySmdjwiugy0612-75-66 15:30:000.9 [facility] TgismizYwwfqndsz3911-47-84 15:30:0015[facility] HermannChemistry 2013-12-05 15:30:00* Test Item Value Reference Range Interpretation Comments BUN/CREAT (test code = BUN/CREAT) 17 1 6-25 [facility] LmxhgafQziadamfs5626-00-85 15:30:003.9[facility] HermannChemistry 2013-12-05 15:30:008.9[facility] LomkyljIstkyxelk5919-36-89 15:30:0029[facility] TutdgkcYvhgadikh2242-49-64 15:30:0031[facility] CjkqkdlUgimtvxst5312-64-66 15:30:0096[facility] OwjcnniXspvwgvgd6199-56-93 15:30:0035[facility] [place] Xbolssamt5781-87-95 15:30:62242Oemvmwbe HhzencuHogcqfrlww0718-93-79 15:30:0015.6 [facility] YkcykvvTozcfgmwks4845-22-13 15:30:0046.3[facility] HermannHematology 2013-12-05 15:30:72722 K/MMemorial KrzaowyZuqfsiyuhj6883-47-05 15:30:00 ColorlessMemorial CkkfuovXpqghjkxuj9939-89-38 15:30:00ColorlessMemorial [place]
== END 2019-10-07 14:08 | disposition home or self-care (01) ==
LOC: OR 05:13 → INTOOBSV 22:18 → MED/SURG 22:18
PROVIDERS: ADMIT Orthopaedic Surgery; ATTEND Orthopaedic Surgery
DX: M70.62 Trochanteric bursitis, left hip (principal); M16.12 Unilateral primary osteoarthritis, left hip; M25.511 Pain in right shoulder; M75.41 Impingement syndrome of right shoulder; M19.011 Primary osteoarthritis, right shoulder; S43.421A Sprain of right rotator cuff capsule, initial encounter; M25.552 Pain in left hip; Z01.812 Encounter for preprocedural laboratory examination; Z11.59 Encounter for screening for other viral diseases
CPT/HCPCS: 27130; 36415; 80048; 85025; 85610; 85730; 86850; 86900; 86920; 97116; 97161; 97530 ×2; C1713 ×2; C1776 ×4; G0378 ×2; J0171; J0690 ×2; J1100; J1650; J1885; J2001; J2270; J2405; J2704; J2710; J2795; J3010; J7121; S0164; U0002; 76000